=== PATIENT | female | born 1955 | race Caucasian/White ===

== ENCOUNTER 2018-12-05 13:21 | Emergency (ER) | payer MEDICAID, OTHER ==
[~2018-12-05] VITALS: Ht 162.6 cm; Wt 90.7 kg
[~2018-12-05 13:21] MED LIST: ACET-2605 PO; ALBU18HF2 IH; DOCU100C36 PO; FAMO20TA8 PO; GABA-534 PO; HYDR-4354 PO; LORA10TA7 PO; MOME13HF2 IH; MONT10TA22 PO; NAPR-1009 PO; PROZAC PO; SEROQUEL PO
--- NOTE | 2018-12-05 13:30 | NUR ---
ROSY 87 FROM HOME C/O SOB x 3 DAYS, ALBUTEROL GIVEN IN FIELD W ELEUTERIO BRAVO FROM [facility] THIS MORNING. TO ER BED 3, HOOKED TO MONITOR, CHANGED TO GOWN, AWAITING MD BLAIR
[2018-12-05 13:59] LABS: BASOPHILS % (AUTO) 0.5 % (0.0-2.0); EOSINOPHILS % (AUTO) 0.1 % (0.0-6.0); HEMATOCRIT 41 % (33-45); HEMOGLOBIN 12.9 g/dL (11.5-14.8); LYMPHOCYTES # (AUTO) 1.9 /CMM (0.8-4.8); LYMPHOCYTES % (AUTO) 25.6 % (20.0-44.0); MEAN CORPUSCULAR HGB CONC 31 g/dl (31.0-36.0); MEAN CORPUSCULAR VOLUME 68 fL (82-100); MONOCYTES # (AUTO) 0.7 /CMM (0.1-1.30); MONOCYTES % (AUTO) 9.6 % (2.0-12.0); NEUTROPHILS # (AUTO) 4.7 /CMM (1.8-8.9); NEUTROPHILS % (AUTO) 64.2 % (43.0-81.0); PLATELET COUNT (AUTO) 159 /CMM (150-450); RED BLOOD CELL COUNT(AUTO) 6.03 MIL/uL (4.0-5.2); WHITE BLOOD COUNT (AUTO) 7.3 K/uL (4.3-11.0)
[2018-12-05] MEDS ORDERED: IPRATROPIUM NEB FS 0.5 MG/2.5 ML AMPUL.NEB NEB ONE (14:00)
[2018-12-05] MEDS ORDERED: methylPREDNISolone SOD SUCC 125 MG/2ML VIAL IV ONE (14:00)
[2018-12-05] MEDS ORDERED: ALBUTEROL FS 2.5 MG/3 ML VIAL.NEB NEB ONE (14:00)
--- NOTE | 2018-12-05 14:00 | NUR ---
PT VERBALIZED THAT SHE PLANS ANUPAMA KILL HERSELF BY STICKING KNIFE THROUGH HER THROAT. MADE MD AWARE
[2018-12-05] MEDS ORDERED: methylPREDNISolone SOD SUCC 125 MG/2ML VIAL ONE (14:02)
[2018-12-05 14:09] LABS: CALCIUM, SERUM 9.1 mg/dL (8.5-10.1); CARBON DIOXIDE 30 mmol/L (21-32); CHLORIDE 102 mmol/L (98-107); CREATININE 0.7 mg/dL (0.6-1.3); GLUCOSE 143 mg/dL (74-106); SODIUM SERUM 140 mmol/L (136-145); UREA NITROGEN, BLOOD 9 mg/dL (7-18)
[2018-12-05] MEDS ORDERED: HYDR25TA4 PO (14:15)
[2018-12-05] MEDS ORDERED: LOSA100T31 PO (14:15)
[2018-12-05] MEDS ORDERED: CLON0.2T PO (14:15)
[2018-12-05] MEDS ORDERED: METF-442 PO (14:15)
[2018-12-05] MEDS ORDERED: NITR100C15 PO (14:15)
[2018-12-05] MEDS ORDERED: FLUO-120 PO (14:15)
[2018-12-05] MEDS ORDERED: BUPR-51 PO (14:15)
[2018-12-05] MEDS ORDERED: CLON2TAB11 PO (14:15)
[2018-12-05 14:17] LABS: POTASSIUM 2.8 mmol/L (3.5-5.1)
[2018-12-05 14:22] LABS: ALANINE AMINOTRANSFERASE 27 U/L (12-78); ALBUMIN 3.4 g/dL (3.4-5.0); ALKALINE PHOSPHATASE 65 U/L (46-116); ASPARTATE AMINOTRANSFERASE 26 U/L (15-37); B-TYPE NATRIURETIC PEPTIDE 730 PG/ML (0-125); BILIRUBIN,DIRECT 0.4 mg/dL (0.0-0.2); BILIRUBIN,TOTAL 0.9 mg/dL (0.2-1.0); TOTAL PROTEIN, SERUM 6.8 g/dL (6.4-8.2)
[2018-12-05] MEDS ORDERED: ALBUTEROL FS 2.5 MG/3 ML VIAL.NEB ONE (14:26)
[2018-12-05] MEDS ORDERED: IPRATROPIUM NEB FS 0.5 MG/2.5 ML AMPUL.NEB ONE (14:26)
[2018-12-05] MEDS ORDERED: POTASSIUM CHLORIDE 20 MEQ TAB.PRT.SR PO ONE (14:30)
[2018-12-05 15:05] LABS: NEUTROPHILS % (MANUAL) 63 (42-76)
[2018-12-05 15:06] LABS: LYMPHOCYTES % (MANUAL) 26 % (16-48); MONOCYTES % (MANUAL) 11 % (0-11.0)
[2018-12-05 15:55] LABS: APPEARANCE,URINE Clear (CLEAR); BILIRUBIN,URINE Negative (NEGATIVE); BLOOD, URINE Negative Ery/uL (NEGATIVE); COLOR,URINE Yellow (YELLOW); KETONES,URINE 40 (NEGATIVE); LEUKOCYTE ESTERASE ,URINE Negative (NEGATIVE); NITRITE, URINE Positive (NEGATIVE); PROTEIN,URINE Negative (NEGATIVE); UGLUCOSE Negative (NEGATIVE); UROBILINOGEN,URINE 0.2 EU/dL (0.2)
[2018-12-05 16:04] LABS: RBC,URINE NONE SEEN /HPF (0-2)
[2018-12-05 16:05] LABS: BACTERIA,URINE 1+ /HPF (None Seen); SQUAMOUS EPITHELIAL CELL,UR Few /HPF (None Seen)
--- NOTE | 2018-12-05 16:29 | NUR ---
PT IN BED COMFORTABLY ASLEEP. HOOKED TO MONITOR, NO C/O PAIN. PROVIDED W WARM BLANKETS. WILL CONTINUE TO MONITOR.
--- NOTE | 2018-12-05 17:31 | NUR ---
SALES SERVICE SUPERVISORLIVE, CALLED FOR A PSYCH EVAL Addendum: 12/05/18 at 1731 by SARAVANAN LEFT A MESSAGE
--- NOTE | 2018-12-05 18:04 | NUR ---
LIVE CALLED AND IS ON HER WAY
--- NOTE | 2018-12-05 19:42 | NUR ---
PT TO BED 13, SITTER AT BEDSIDE
--- NOTE | 2018-12-05 19:44 | NUR ---
EMT AT BEDSIDE INTIL NURSING ENVIRONMENTAL SPECIALIST SENDS SITTER.
--- NOTE | 2018-12-05 19:48 | NUR ---
AWAITING PLACEMENT AT [facility].
--- NOTE | 2018-12-05 19:52 | NUR ---
REPORT GIVEN TO GARCIA BREAUX FOR STEVEN
--- NOTE | 2018-12-05 22:01 | NUR ---
SPOKE WITH EUGENIA AT [facility], STILL AWAITING PLACEMENT.
--- NOTE | 2018-12-06 00:12 | NUR ---
PATIENT TBA [facility] ACCEPTED BY DR. BHAKTA RN TO RN REPORT [phone]
--- NOTE | 2018-12-06 00:46 | NUR ---
MARTIN PICKUP TIME [id number] TRIP#[id number]
--- NOTE | 2018-12-06 00:58 | NUR ---
IVORY CATHERINE ROOM#625-I
--- NOTE | 2018-12-06 00:58 | NUR ---
PER PENNY NURSE FROM [facility], THEY CAN'T ACCEPT PT UNTIL REPEAT K IS DONE, DR. JURADO AWARE, NEW ORDERS FOR REPEAT K DONE.
--- NOTE | 2018-12-06 01:24 | NUR ---
CALLED FOR REPORT, NX IS BUSY AT THIS TIME; WILL CALL BACK
--- NOTE | 2018-12-06 01:36 | NUR ---
REPORT GIVEN TO PENNY CURTIS [facility]
[2018-12-06 02:57] VITALS: BP 141/82
--- NOTE | 2018-12-06 03:09 | NUR ---
GAVE REPORT TO NAGA FROM [place] [id number] FOR TRANSPORTATION STEVEN
== END 2018-12-06 03:14 ==
LOC: ER 13:26
DX: G89.4 Chronic pain syndrome (principal); J44.9 Chronic obstructive pulmonary disease, unspecified; E66.01 Morbid (severe) obesity due to excess calories; R45.851 Suicidal ideations; R10.84 Generalized abdominal pain; E87.6 Hypokalemia; I10 Essential (primary) hypertension; I51.7 Cardiomegaly; E11.9 Type 2 diabetes mellitus without complications; F32.9 Major depressive disorder, single episode, unspecified; F20.9 Schizophrenia, unspecified; F17.200 Nicotine dependence, unspecified, uncomplicated
CPT/HCPCS: 36415 ×2; 71045; 74176; 80048; 80076; 80305; 80307; 81001; 83880; 84132; 84484; 85025; 87086; 93005; 94640 ×2; 96374; 99285; A4606; J2930; 81000-TC; G0480

== ENCOUNTER 2018-12-24 19:51 | Emergency (ER) | payer MEDICAID ==
[~2018-12-24] VITALS: Ht 162.6 cm; Wt 107.5 kg
[~2018-12-24 19:51] MED LIST changes: +BUPR-51 PO; +CLON0.2T PO; +CLON2TAB11 PO; -DOCU100C36 PO; -FAMO20TA8 PO; +FLUO-120 PO; -HYDR-4354 PO; +HYDR25TA4 PO; +LOSA100T31 PO; +METF-442 PO; -MOME13HF2 IH; -NAPR-1009 PO; +NITR100C15 PO; -PROZAC PO; -SEROQUEL PO
--- NOTE | 2018-12-24 20:05 | NUR ---
PT ROSY FROM HOME FOR C/C SOB, COUGH X 2 DAYS, O2 SAT 93% ON RA, GIVEN ALBUTEROL 5MG X2 HHN, BG 172 IN FIELD;C/O HEADACHE, ABD PAIN. PT AOX4. PRODUCTIVE COUGH NOTED. PT ON MONITOR IN BED 4. WILL CONTINUE TO MONITOR.
--- NOTE | 2018-12-24 20:29 | NUR ---
Deven woodson in [facility] - 12/24/18 at 2045 by DENIS AT BEDSIDE
[2018-12-24] MEDS ORDERED: ALBUTEROL FS 2.5 MG/3 ML VIAL.NEB NEB ONE (21:30)
[2018-12-24] MEDS ORDERED: IPRATROPIUM NEB FS 0.5 MG/2.5 ML AMPUL.NEB NEB ONE (21:30)
[2018-12-24] MEDS ORDERED: Magnesium 1GM/D5W 100ML PREMIX 200 ML IV ONE ×2 (21:31→21:47)
--- NOTE | 2018-12-24 21:31 | NUR ---
ADDENDUM: Intravenous End Time Documentation: Magnesium/ D5W : start time: 2130 PM ; end time: 0 PM : IV site: LAC # 20Port # 1
--- NOTE | 2018-12-24 21:36 | NUR ---
RADIOLOGY AT BEDSIDE FOR XRAY
[2018-12-24] MEDS ORDERED: IPRATROPIUM NEB FS 0.5 MG/2.5 ML AMPUL.NEB ONE (21:38)
[2018-12-24] MEDS ORDERED: ALBUTEROL FS 2.5 MG/3 ML VIAL.NEB ONE ×2 (21:38→21:48)
[2018-12-24] MEDS ORDERED: methylPREDNISolone SOD SUCC 125 MG/2ML VIAL ONE (21:46)
[2018-12-24] MEDS ORDERED: methylPREDNISolone SOD SUCC 125 MG/2ML VIAL IV ONE (22:00)
[2018-12-24] MEDS ORDERED: ALBUTEROL FS 2.5 MG/3 ML VIAL.NEB CONTNEB ONE (22:00)
[2018-12-24 22:44] LABS: BASOPHILS % (AUTO) 0.3 % (0.0-2.0); EOSINOPHILS % (AUTO) 0.3 % (0.0-6.0); HEMATOCRIT 40 % (33-45); HEMOGLOBIN 12.6 g/dL (11.5-14.8); LYMPHOCYTES # (AUTO) 4.5 /CMM (0.8-4.8); MEAN CORPUSCULAR HGB CONC 31 g/dl (31.0-36.0); MEAN CORPUSCULAR VOLUME 68 fL (82-100); MONOCYTES # (AUTO) 1.3 /CMM (0.1-1.30); MONOCYTES % (AUTO) 10.6 % (2.0-12.0); NEUTROPHILS # (AUTO) 6.6 /CMM (1.8-8.9); NEUTROPHILS % (AUTO) 52.8 % (43.0-81.0); PLATELET COUNT (AUTO) 239 /CMM (150-450); RED BLOOD CELL COUNT(AUTO) 5.98 MIL/uL (4.0-5.2); WHITE BLOOD COUNT (AUTO) 12.4 K/uL (4.3-11.0)
[2018-12-24 22:51] LABS: CALCIUM, SERUM 9.2 mg/dL (8.5-10.1); CREATININE 1.1 mg/dL (0.6-1.3)
[2018-12-24 23:00] LABS: ALBUMIN 3.4 g/dL (3.4-5.0); BILIRUBIN,TOTAL 0.3 mg/dL (0.2-1.0)
[2018-12-24 23:01] LABS: POTASSIUM 2.8 mmol/L (3.5-5.1)
[2018-12-24] MEDS ORDERED: IV NS 0.9% 1,000 ML BAG IV ONE (23:30)
[2018-12-24] MEDS ORDERED: POTASSIUM CHLORIDE 20 MEQ TAB.PRT.SR PO ONE ×2 (23:30→23:49)
[2018-12-24 23:38] LABS: LYMPHOCYTES % (MANUAL) 26 % (16-48); MONOCYTES % (MANUAL) 11 % (0-11.0); NEUTROPHILS % (MANUAL) 63 (42-76)
[2018-12-24] MEDS ORDERED: ONDANSETRON 4 MG TAB.RAPDIS ONE (23:49)
[2018-12-24] MEDS ORDERED: MORPHINE SULFATE INJ 4 MG/ML DISP.SYRIN ONE (23:49)
[2018-12-25] MEDS ORDERED: MORPHINE SULFATE INJ 10 MG/ML DISP.SYRIN IV ONE
[2018-12-25] MEDS ORDERED: ONDANSETRON 4 MG TAB.RAPDIS SL ONE
[2018-12-25 00:06] LABS: APPEARANCE,URINE Cloudy (CLEAR); BILIRUBIN,URINE SMALL (NEGATIVE); BLOOD, URINE Negative Ery/uL (NEGATIVE); COLOR,URINE Dark (YELLOW); KETONES,URINE 15 (NEGATIVE); LEUKOCYTE ESTERASE ,URINE Trace (NEGATIVE); NITRITE, URINE Negative (NEGATIVE); PH,URINE 5.5 (5.0-8.0); PROTEIN,URINE 100 mg/dl (NEGATIVE); UGLUCOSE Negative (NEGATIVE)
[2018-12-25 00:27] LABS: RBC,URINE 0-2 /HPF (0-2)
[2018-12-25 00:28] LABS: BACTERIA,URINE Few /HPF (None Seen); SQUAMOUS EPITHELIAL CELL,UR Few /HPF (None Seen)
[2018-12-25 00:48] VITALS: BP 111/75
[2018-12-25] MEDS ORDERED: IV NS 0.9% 250 ML IV ONE (01:48)
[2018-12-25] MEDS ORDERED: CT SWABBABLE VALVE TRANS SET 1 EA INFUS.SET MC ONE (01:48)
[2018-12-25] MEDS ORDERED: IOHEXOL-350 100 ML VIAL IV ONE (01:48)
--- NOTE | 2018-12-25 01:48 | NUR ---
PT TAKEN TO RADIOLOGY VIA DEANDRA
[2018-12-25] MEDS ORDERED: HYDROMORPHONE INJ 0.5 MG/0.5 ML SYRINGE IV ONE (02:00)
[2018-12-25] MEDS ORDERED: HYDROMORPHONE 1 MG/1 ML DISP.SYRIN ONE (02:02)
--- NOTE | 2018-12-25 03:34 | NUR ---
IV removed. Catheter intact and site benign. Pressure and 4x4 applied to site. No bleeding noted.Patient discharged to home in stable condition. Written and verbal after care instructions given. Patient verbalizes understanding of instruction.
== END 2018-12-25 03:39 | disposition home or self-care (01) ==
LOC: ER 19:51
DX: J44.9 Chronic obstructive pulmonary disease, unspecified (principal); N39.0 Urinary tract infection, site not specified; R19.09 Other intra-abdominal and pelvic swelling, mass and lump; R11.10 Vomiting, unspecified; E11.9 Type 2 diabetes mellitus without complications; I10 Essential (primary) hypertension; F32.9 Major depressive disorder, single episode, unspecified; F41.9 Anxiety disorder, unspecified; F20.9 Schizophrenia, unspecified; I51.7 Cardiomegaly; F17.200 Nicotine dependence, unspecified, uncomplicated
CPT/HCPCS: 36415; 71045; 71275; 74176; 80053; 81001; 84484; 85025; 85730; 87077; 87086; 87186 ×2; 87804 ×2; 93005 ×2; 94644; 96361; 96365; 96366; 96375; 99285; A4606; J1170; J2270; J2930; J3475; J7030; J7050; Q0162; Q9967; 81000-TC; 87400

== ENCOUNTER 2019-06-12 14:34 | Emergency (ER) | payer MEDICARE, OTHER ==
[2019-06-12] MEDS ORDERED: ACETAMINOPHEN W/ CODEINE#3 1 EA TABLET PO ONE (17:00)
== END 2019-06-12 17:01 | disposition home or self-care (01) ==
DX: L03.116 Cellulitis of left lower limb (principal); F17.210 Nicotine dependence, cigarettes, uncomplicated; I10 Essential (primary) hypertension; E11.9 Type 2 diabetes mellitus without complications; J44.9 Chronic obstructive pulmonary disease, unspecified; F32.9 Major depressive disorder, single episode, unspecified; F41.9 Anxiety disorder, unspecified; F20.9 Schizophrenia, unspecified; Z85.42 Personal history of malignant neoplasm of other parts of uterus; Z90.49 Acquired absence of other specified parts of digestive tract; Z90.710 Acquired absence of both cervix and uterus

== ENCOUNTER 2019-06-22 13:56 | Inpatient (IN) | payer OTHER ==
[~2019-06-22] VITALS: Ht 162.6 cm; Wt 130.2 kg
--- NOTE | 2019-06-22 14:00 | NUR ---
[place] RA 860 FROM [facility], "BOTH LEGS SWELLING AND PAIN x 5DAYS" . TO ER BED 10, HOOKED TO MONITOR, CHANGED TO GOWN, PROVIDED W WARM BLANKET, PATIENT'S RA O2 SATURATION AT 89%, PLACED ON OXYGEN VIA NC AT 4LPM, O2 SATURATION AFTER AT 93%. AWAITING MD BLAIR.
--- NOTE | 2019-06-22 14:28 | NUR ---
DR BENTON AT BEDSIDE
[2019-06-22] MEDS ORDERED: VANCOMYCIN 1 GM in IV D5W 250 ML IV ONE (14:30)
--- NOTE | 2019-06-22 14:55 | NUR ---
US TECH AT BEDSIDE
[2019-06-22 14:59] LABS: BASOPHILS % (AUTO) 0.8 % (0.0-2.0); EOSINOPHILS % (AUTO) 2.8 % (0.0-6.0); HEMATOCRIT 35 % (33-45); HEMOGLOBIN 10.8 g/dL (11.5-14.8); LYMPHOCYTES # (AUTO) 1.7 /CMM (0.8-4.8); LYMPHOCYTES % (AUTO) 32.2 % (20.0-44.0); MEAN CORPUSCULAR HGB CONC 31 g/dl (31.0-36.0); MEAN CORPUSCULAR VOLUME 66 fL (82-100); MONOCYTES # (AUTO) 0.5 /CMM (0.1-1.30); MONOCYTES % (AUTO) 10.3 % (2.0-12.0); NEUTROPHILS # (AUTO) 2.9 /CMM (1.8-8.9); NEUTROPHILS % (AUTO) 53.9 % (43.0-81.0); PLATELET COUNT (AUTO) 126 /CMM (150-450); RED BLOOD CELL COUNT(AUTO) 5.32 MIL/uL (4.0-5.2); WHITE BLOOD COUNT (AUTO) 5.3 K/uL (4.3-11.0)
[2019-06-22] MEDS ORDERED: ONDANSETRON HCL/PF - ER 4 MG/2 ML VIAL IV ONE (15:00)
[2019-06-22] MEDS ORDERED: MORPHINE SULFATE INJ 2 MG/ML DISP.SYRIN IV ONE (15:00)
[2019-06-22 15:05] LABS: CALCIUM, SERUM 8.2 mg/dL (8.5-10.1); CREATININE 0.8 mg/dL (0.6-1.3)
[2019-06-22 15:18] LABS: ALBUMIN 2.8 g/dL (3.4-5.0); BILIRUBIN,DIRECT 0.2 mg/dL (0.0-0.2); BILIRUBIN,TOTAL 0.3 mg/dL (0.2-1.0); TOTAL PROTEIN, SERUM 5.9 g/dL (6.4-8.2)
[2019-06-22] MEDS ORDERED: VANCOMYCIN 1 GM VIAL ONE (15:22)
[2019-06-22] MEDS ORDERED: MORPHINE SULFATE INJ 4 MG/ML DISP.SYRIN ONE (15:28)
[2019-06-22] MEDS ORDERED: ONDANSETRON HCL/PF 4 MG/2 ML VIAL ONE (15:28)
[2019-06-22] MEDS ORDERED: CARI350T PO (15:31)
[2019-06-22] MEDS ORDERED: MELA5TAB PO (15:31)
--- NOTE | 2019-06-22 16:30 | NUR ---
Called HCP at [phone] to notify on admission. Rep wasn't able to locate the patient.
--- NOTE | 2019-06-22 16:38 | NUR ---
Called Cynthia MARES at [facility] who also weren't able to locate the patient. Faxed Facesheet to [phone] @ 1641, Cynthia confirmed that she received it and will take it to the eligibility team to verify eligibility. She will let me know shortly.
--- NOTE | 2019-06-22 17:00 | NUR ---
got bed 311 juan jose is the nurse.
--- NOTE | 2019-06-22 17:08 | NUR ---
Spoke with Cynthia, she is unable to verify eligibility at this time. Will admit the patient and she will notify the MD in AM.
--- NOTE | 2019-06-22 17:09 | NUR ---
@ 1630 Called HCP at [phone] to notify on admission. Rep wasn't able to locate the patient. @ 1632 Called Cynthia MARES at [facility] who also weren't able to locate the patient. Faxed Facesheet to [phone] @ 9951, Cynthia confirmed that she received it and will take it to the eligibility team to verify eligibility. She will let me know shortly. @ Spoke with Cynthia, she is unable to verify eligibility at this time. Will admit the patient and she will notify the MD in AM. ER is aware that it is OK to Admit the patient at this time. Will follow up with HCP in AM
--- NOTE | 2019-06-22 17:34 | NUR ---
REPORT GIVEN TO SEBASTIAN OF MS UNIT
--- NOTE | 2019-06-22 18:26 | NUR ---
MS DIESEL SERVICE JOURNEYMAN NOTES Received Patient awake and resting in bed. A/O x 4. VS stable with no acute distress. Breathing even and unlabored on 4LPM via NC with SPO2 at 92%. VS stable with no acute distress. Denies pain at this time. 22g PIV on LEFT HAND clean, dry, intact and flushing well. Safety precautions in place. Bed locked and set to lowest position with side rails x 2 up. All needs rendered at this time. Will continue to monitor.
[2019-06-22] MEDS ORDERED: TEMA30CA PO (18:29)
[2019-06-22] MEDS ORDERED: BENZ2AMP3 PO (18:29)
[2019-06-22] MEDS ORDERED: DICL50TA7 PO (18:29)
[2019-06-22] MEDS ORDERED: QUET300T2 PO (18:29)
[2019-06-22] MEDS ORDERED: ROSU5TAB PO (18:29)
[2019-06-22] MEDS ORDERED: ALBUTEROL FS 2.5 MG/3 ML VIAL.NEB NEB PRN ×2 (19:00→19:38)
[2019-06-22] MEDS ORDERED: clonazePAM 2 MG TABLET PO PRN (19:00)
[2019-06-22] MEDS ORDERED: ONDANSETRON HCL/PF 4 MG/2 ML VIAL IVP PRN (19:00)
[2019-06-22] MEDS ORDERED: MAGNESIUM HYDROXIDE 30 ML UDC PO PRN (19:00)
[2019-06-22] MEDS ORDERED: DEXTROSE 50%-WATER 50 ML DISP.SYRIN IV PRN (19:00)
[2019-06-22] MEDS ORDERED: TEMAZEPAM 15 MG CAPSULE PO PRN (19:00)
[2019-06-22] MEDS ORDERED: HYDROCODONE/APAP 10/325MG 1 EA TABLET PO PRN (19:00)
[2019-06-22] MEDS ORDERED: ACETAMINOPHEN 325 MG TABLET PO PRN (19:00)
[2019-06-22] MEDS ORDERED: MAG HYDROX/AL HYDROX/SIMETH 30 ML UDC PO PRN (19:00)
[2019-06-22] MEDS ORDERED: FEE PK DOSING 1 MIN EA MC ONE (19:34)
--- NOTE | 2019-06-22 19:35 | NUR ---
RN OPENING NOTES RECEIVED PATIENT IN BED RESTING COMFORTABLY, ASLEEP, EASILY AROUSBLE TO VOICE. A/O X 4. NO SIGNS OF RESPIRATORY DISTRESS. DENIES SOB. ON 4LPM O2 VIA NC SATURATION AT 93%. DENIES PAIN AT THIS TIME. 22 G PIV ON LEFT HAND, INTACT AND FLUSHING WELL. SAFETY PRECAUTIONS IMPLEMENTED; CALL LIGHT WITHIN REACH, BED LOWEST POSITION, BED LOCKED, SIDE RAILS UP X2. WILL CONTINUE TO MONITOR PATIENT.
--- NOTE | 2019-06-22 19:44 | NUR ---
MS RN CLOSING NOTES Patient resting and asleep in bed. A/O x 4. VS stable with no acute distress. Breathing even and unlabored on 4LPM via NC with SPO2 at 93%. Denies pain at this time. 22g PIV on LEFT HAND clean, dry, intact and flushing well. Safety precautions in place. Bed locked and set to lowest position with side rails x 2 up. All needs rendered at this time. Will endorse plan of care to oncoming shift.
[2019-06-22 20:00] VITALS: BP 137/82
[2019-06-22] MEDS ORDERED: clonazePAM 1 MG TABLET PO PRN (20:00)
[2019-06-22] MEDS ORDERED: clonazePAM 1 MG TABLET PO SCH (20:00)
--- NOTE | 2019-06-22 20:17 | NUR ---
RN NOTES PATIENT ABLE TO STAND NEAR BED SIDE FOR A MINUTE. ABLE TO ZERO BED. PATIENT WEIGHT 285 POUNDS. CALLED PHARMACY ABOUT WEIGHT.
[2019-06-22] MEDS: ATORVASTATIN 10 MG TABLET PO SCH (21:58)
[2019-06-22] MEDS: BLOOD SUGAR DIAGNOSTIC 1 EACH STRIP IN SCH (21:58)
[2019-06-22] MEDS: QUETIAPINE FUMARATE 100 MG TABLET PO SCH (21:59)
[2019-06-22] MEDS: HYDROCODONE/APAP 5/325MG 1 EACH TABLET PO PRN (22:05)
--- NOTE | 2019-06-22 23:00 | NUR ---
RN NOTES PATIENT ONLY ABLE TO TOLERATE BODY ASSESSMENT ANTERIORLY/FRONT. UNABLE TO ASSESS BACK DUE TO PATIENT EXPERIENCING DISCOMFORT WHEN TRYING TO TURN. PATIENT REFUSES ASSESSMENT OF THE BACK OR POSTERIOR SIDE OF THE FULL BODY.
[2019-06-23] VITALS (12 sets, daily range): BP systolic 107–154; BP diastolic 55–84
[2019-06-23] MEDS: VANCOMYCIN 1.25 GM in IV D5W 500 ML IV SCH ×2 (02:56→16:24)
--- NOTE | 2019-06-23 07:00 | NUR ---
RN CLOSING NOTES PATIENT CURRENTLY ASLEEP, RESTING IN BED, EASILY AROUSABLE. A/O X 4 WHEN AWAKE. VITAL SIGNS STABLE. PATIENT CURRENTLY ON 2LPM OXYGEN VIA NC WITH SPO2 AT 93-95%. NO SIGNS OF RESPIRATORY DISTRESS. NO SHORTNESS OF BREATH NOTED. NO COMPLAINTS OF PAIN AT THIS TIME. IV SITE: 22G LEFT HAND INTACT, PATENT, FLUSHING WELL. ALL NEEDS MET AT THIS TIME. SAFETY PRECAUTIONS IMPLEMENTED; CALL LIGHT WITHIN REACH, BED LOWEST POSITION, BED LOCKED, SIDE RAILS UP X2. WILL ENDORSE CARE TO DAY NURSE FOR CONTINUITY OF CARE.
[2019-06-23 07:23] LABS: EOSINOPHILS % (AUTO) 4.5 % (0.0-6.0); HEMATOCRIT 36 % (33-45); HEMOGLOBIN 10.9 g/dL (11.5-14.8); LYMPHOCYTES # (AUTO) 1.6 /CMM (0.8-4.8); LYMPHOCYTES % (AUTO) 39.6 % (20.0-44.0); MEAN CORPUSCULAR HGB CONC 30 g/dl (31.0-36.0); MEAN CORPUSCULAR VOLUME 67 fL (82-100); MONOCYTES # (AUTO) 0.5 /CMM (0.1-1.30); MONOCYTES % (AUTO) 12.8 % (2.0-12.0); NEUTROPHILS # (AUTO) 1.7 /CMM (1.8-8.9); NEUTROPHILS % (AUTO) 42.1 % (43.0-81.0); PLATELET COUNT (AUTO) 127 /CMM (150-450); RED BLOOD CELL COUNT(AUTO) 5.39 MIL/uL (4.0-5.2); WHITE BLOOD COUNT (AUTO) 4.1 K/uL (4.3-11.0)
--- NOTE | 2019-06-23 07:30 | NUR ---
RN MS NOTES PT IN BED, ASLEEP, RESPIRATIONS NORMAL, NO SIGN OF PAIN OR DISTRESS, CALL LIGHT WITHIN REACH, EASY TO AROUSE, ALERT AND ORIENTED, KEPT WARM AND COMFORTABLE.
[2019-06-23 07:54] LABS: CALCIUM, SERUM 8.4 mg/dL (8.5-10.1); CREATININE 0.6 mg/dL (0.6-1.3); MAGNESIUM 1.7 mg/dL (1.8-2.4); PHOSPHORUS 4.8 mg/dL (2.5-4.9); POTASSIUM 4.3 mmol/L (3.5-5.1)
[2019-06-23] MEDS ORDERED: ALBUTEROL FS 2.5 MG/0.5 ML VIAL.NEB NEB PRN (08:00)
[2019-06-23] MEDS ORDERED: MAGNESIUM OXIDE 400 MG TABLET PO ONE (08:00)
[2019-06-23] MEDS ORDERED: IPRATROPIUM NEB FS 0.5 MG/2.5 ML AMPUL.NEB NEB PRN (08:00)
[2019-06-23] MEDS: GABAPENTIN 300 MG CAPSULE PO SCH ×2 (09:03→16:50)
[2019-06-23] MEDS: BLOOD SUGAR DIAGNOSTIC 1 EACH STRIP IN SCH ×4 (09:03→21:46)
[2019-06-23] MEDS: BENZTROPINE MESYLATE (1 MG) 1 MG TABLET PO SCH ×2 (09:03→16:50)
[2019-06-23] MEDS: DICLOFENAC SODIUM 25 MG TABLET.DR PO SCH ×2 (09:07→16:50)
--- NOTE | 2019-06-23 09:30 | NUR ---
RN MS NOTES PT SEEN AND EXAMINED BY DR. ESCALANTE, PLAN OF CARE DISCUSSED WITH PT, VERBALIZED UNDERSTANDING.
[2019-06-23 09:54] LABS: EOSINOPHILS % (MANUAL) 3 % (0-4); LYMPHOCYTES % (MANUAL) 45 % (16-48); MONOCYTES % (MANUAL) 10 % (0-11.0); NEUTROPHILS % (MANUAL) 42 (42-76)
[2019-06-23] MEDS: FUROSEMIDE 40 MG/4 ML VIAL IV SCH (13:13)
[2019-06-23 13:45] LABS: ABG BASE EXCESS 9.9 mmol/L; ABG OXYGEN SATURATION 90.2 % (92.0-98.5); ABG PCO2 101.8 mmHg (35.0-45.0); ABG PH 7.221 (7.350-7.450); ABG PO2 65.5 mmHg (75.0-100.0); AaDO2 28.8 mmHg; COHb 1.8 % (0.5-1.5); MetHb 0.6 % (0.0-1.5); SITE, ABG Right Radial; VENT MODE, BG NASAL CANNULA
--- NOTE | 2019-06-23 14:52 | NUR ---
RN MS NOTES PT WITH ABNORMAL ABG RESULTS, RECEIVED ORDER TO TRANSFER PT TO ICU FOR BIPAP, PT INFORMED, VERBALIZED UNDERSTANDING, TRANSFERED PT TO ICU ROOM 259 WITH ALL BELONGINGS, PT AWAKE, ALERT AND ORIENTED, NOT IN DISTRESS, REPORT GIVEN TO HIGH SCHOOL BUSINESS TEACHER AFSA FOR CONTINUITY OF CARE.
[2019-06-23] MEDS: HYDROCODONE/APAP 5/325MG 1 EACH TABLET PO PRN (14:53)
--- NOTE | 2019-06-23 15:00 | NUR ---
QUALITY PROCESS AUDITORCLASSIFIED AD CLERK NOTES PT RECEIVED FROM [facility] DUE TO BIPAP NEED A RESULT OF HYPERCAPNIC RESPIRATORY FAILURE. RT AT BEDSIDE. PT A/O X3. VSS. NO ACUTE SIGNS OF DISTRESS NOTED. BREATHING IS EVEN AND UNLABORED. DR RAND MADE AWARE OF TRANSFER. TELEPHONE ORDER OBTAINED TO REPEAT ABG 2HRS POST BIPAP INITIATION. BELONGINGS VERIFIED. PT ORIENTED TO ROOM AND USE OF CALL LIGHT. BED IN LOW LOCKED POSITION, SIDE RAILS UP X2. WILL CONTINUE TO MONITOR
[2019-06-23 17:02] LABS: ABG BASE EXCESS 7.9 mmol/L; ABG PCO2 85.4 mmHg (35.0-45.0); ABG PH 7.261 (7.350-7.450); ABG PO2 66.2 mmHg (75.0-100.0); AaDO2 84.1 mmHg; COHb 1.7 % (0.5-1.5); MetHb 0.6 % (0.0-1.5); O2Hb 88.9 % (94.0-97.0); SITE, ABG Right Radial; VENT MODE, BG 18/5 R 12 35%
--- NOTE | 2019-06-23 17:15 | NUR ---
RESULTS OF [address] RAND. VENT CHANGES NOTED BY RT
--- NOTE | 2019-06-23 18:33 | NUR ---
ANNEALING FURNACE TENDER CLOSING NOTES PT REMAINS STABLE ON BIPAP. ALL NEEDS ANTICIPATED FOR AND MET. DUE MEDS GIVEN PT'S CONDITION WOULD PERMIT. PRN CARE RENDERED. WILL ENDORSE TO NIGHTSHIFT RN FOR STEVEN
--- NOTE | 2019-06-23 19:30 | NUR ---
Received patient lethargic but arousable.Oriented x 3.Follows simple commands.SR per tele monitoring.ON BIPAP 18/8,Rate 20,FIO2 35 %.SPO2 92%.No respiratory distress noted.VS stable.Denies pain or sob.RT aware to do ABG's.Care explained.Verbalized understanding. Safety precaution maintained.Call light at bedside.
[2019-06-23 19:40] LABS: ABG BASE EXCESS 8.9 mmol/L; ABG OXYGEN SATURATION 90.5 % (92.0-98.5); ABG PCO2 91.1 mmHg (35.0-45.0); ABG PH 7.249 (7.350-7.450); ABG PO2 64.8 mmHg (75.0-100.0); AaDO2 78.8 mmHg; COHb 1.8 % (0.5-1.5); MetHb 0.6 % (0.0-1.5); O2Hb 88.3 % (94.0-97.0); SITE, ABG Right Radial
--- NOTE | 2019-06-23 19:51 | NUR ---
ABG ORDER @ 19-- Addendum: 06/23/19 at 2041 by ADILENE PALMER RT PHYLLIS DONE @ 19:28. DUE TO ARTERIAL BLOOD GAS RESULT , BIPAP SETTINGS CHANGED TO 20 /5, RATE 26 PER MD'S ORDER. NAMITA CALDERON NOTIFIED.
--- NOTE | 2019-06-23 19:55 | NUR ---
Patient lethargic but arousable.ABG's done.Resulted pH-7.249,pCO2 -91.1,pO2- 64.8, HCO3-39 called to with orders received.Titrate O2 sat 88%-92%,Increase rate to 26,increase pressure 20/5.Do ABG's PRN and in AM.RT,Elizabeth notified.
--- NOTE | 2019-06-23 21:00 | NUR ---
Duncan catheter FR# 16 inserted observing aseptic technique.Draining clear yellow urine. Patient tolerated procedure well.
[2019-06-23] MEDS: QUETIAPINE FUMARATE 100 MG TABLET PO SCH (21:46)
[2019-06-23] MEDS: ATORVASTATIN 10 MG TABLET PO SCH (21:46)
[2019-06-24] VITALS (21 sets, daily range): BP systolic 127–164; BP diastolic 64–99
--- NOTE | 2019-06-24 | NUR ---
Patient resting vs stable.SR.Tolerating BIPAP.Encouraged to turn to sides Q 2 hrs.
[2019-06-24] MEDS: VANCOMYCIN 1.25 GM in IV D5W 500 ML IV SCH ×2 (03:00→14:13)
[2019-06-24] MEDS ORDERED: IV NS 0.9% 250 ML IV ONE (03:30)
--- NOTE | 2019-06-24 04:00 | NUR ---
Patient resting in no acute distress.Get confused and disoriented for brief period of time. Patient removed BIPAP.Reapplied and instructed not to removed it and educated its importance. Reoriented to place and time.Safety precaution maintained.
[2019-06-24 05:03] LABS: CALCIUM, SERUM 8.3 mg/dL (8.5-10.1); CREATININE 0.7 mg/dL (0.6-1.3); POTASSIUM 3.7 mmol/L (3.5-5.1)
--- NOTE | 2019-06-24 06:45 | NUR ---
Patient resting vs remains stable.Refused bed bath.Zachary from lab called CO2 42. Called to DIGESTER,Jigna Arriaza she said to wait for pulmonology to deal with it. Patient in no distress.All needs anticipated and met.Will endorse to day shift for STEVEN.
--- NOTE | 2019-06-24 07:10 | NUR ---
PAINTER DRUM INITIAL NOTES PT RECEIVED ON 3L VIA NC AND SATING WELL. PT REFUSING BIPAP AT THIS TIME. DR RAND MADE AWARE. NO SOB OR SIGNS OF ACUTE DISTRESS NOTED. BREATHING IS EVEN AND UNLABORED. SHE DENIES ANY PAIN. F/C NOTED TO BE C/D/I AND DRAINING TO GRAVITY. RIGHT UPPER ARM MIDLINE NOTED TO BE PATENT AND INTACT. NO REDNESS OR SIGNS OF INFILTRATION NOTED. BED IN LOW LOCKED POSITION, SIDE RAILS UP X2, CALL LIGHT WITHIN REACH. WILL CONTINUE TO MONITOR.
--- NOTE | 2019-06-24 07:49 | NUR ---
pt. is awake and alert, refused to place on bipap. Addendum: 06/24/19 at 0750 by GAMA YBARRA RT Amended: Links added.
[2019-06-24] MEDS: BLOOD SUGAR DIAGNOSTIC 1 EACH STRIP IN SCH ×4 (08:22→21:29)
[2019-06-24] MEDS: DICLOFENAC SODIUM 25 MG TABLET.DR PO SCH ×2 (08:38→17:24)
[2019-06-24] MEDS: BENZTROPINE MESYLATE (1 MG) 1 MG TABLET PO SCH ×2 (08:39→17:24)
[2019-06-24] MEDS: FUROSEMIDE 40 MG/4 ML VIAL IV SCH (08:39)
[2019-06-24] MEDS: GABAPENTIN 300 MG CAPSULE PO SCH ×2 (08:39→17:24)
[2019-06-24 09:14] LABS: ABG BASE EXCESS 10.2 mmol/L; ABG OXYGEN SATURATION 92.1 % (92.0-98.5); ABG PCO2 62.5 mmHg (35.0-45.0); ABG PH 7.392 (7.350-7.450); ABG PO2 58.2 mmHg (75.0-100.0); AaDO2 38.5 mmHg; COHb 1.9 % (0.5-1.5); MetHb 0.5 % (0.0-1.5); O2Hb 89.9 % (94.0-97.0); SITE, ABG Right Radial; VENT MODE, BG NASAL CANNULA
[2019-06-24] MEDS: HYDROCODONE/APAP 5/325MG 1 EACH TABLET PO PRN ×2 (14:14→20:07)
--- NOTE | 2019-06-24 18:35 | NUR ---
CANNON FIRE DIRECTION SPECIALISTBALANCING MACHINE OPERATOR NOTES PT TRANSFERRED TO TELE ROOM 111-1 VIA [facility]. ALL NEEDS MET DURING SHIFT AND ORDERS CARRIED OUT ACCORDINGLY. ALL DUE MEDS GIVEN. PRN CARE RENDERED. INVASIVE LINES REMAIN PATENT AND INTACT. ALL BELONGINGS ACCOUNTED FOR UPON TRANSFER WITH THE EXCEPTION OF PT'S DENTURES, EYEGLASSES, AND CELL PHONE WHICH WERE TAKEN BY PT'S EARLIER THIS AFTERNOON VSS UPON TRANSFER. REPORT GIVEN TO NAMITA ORTIZ FOR STEVEN
--- NOTE | 2019-06-24 18:40 | NUR ---
PT TRANSFERRED DOWN FROM ICU. PT DENIES BEING SOB. DOES REPORT PAIN BUT STATES SHE HAS JUST RECEIVED SOME PAIN MEDICATION IN ICU. PT STATES SHE IS NOT IN ANY NEED OF ANYTHING CURRENTLY. PT IS ON 2 L O2 VIA NC. WILL ENDORSE CONTINUATION OF CARE TO GRAPHIC DESIGN ASSISTANT RN.
--- NOTE | 2019-06-24 19:43 | NUR ---
MEDIA RELATIONS DIRECTOR NOTE: RECEIVED PT ON BED ALERT AND ORIENTED X3. ABLE TO MAKE NEEDS KNOWN. NO APPARENT DISTRESS NOTED. DENIES PAIN AND DISCOMFORT AT THIS TIME. ON ROOM AIR, NO SOB NOTED. IV ON LEFT HAND #22 AND RIGHT UPPER ARM MIDLINE INTACT AND PATENT, FLUSHING WELL. ON TELE MONITOR SINUS TACHY HR 113 BPM. KEPT CLEAN, DRY AND COMFORTABLE. CALL LIGHT PLACED WITHIN REACH. SAFETY AND FALL PRECAUTIONS OBSERVED AND MAINTAINED. WILL CONTINUE TO MONITOR PT
[2019-06-24] MEDS: ATORVASTATIN 10 MG TABLET PO SCH (21:29)
[2019-06-24] MEDS: QUETIAPINE FUMARATE 100 MG TABLET PO SCH (21:29)
[2019-06-24] MEDS: INSULIN REGULAR, HUMAN 100 UNIT/ML 3 ML VIAL SQ PRN (21:40)
[2019-06-25] VITALS: BP 142/85
--- NOTE | 2019-06-25 02:21 | NUR ---
COUNTER SUPERVISOR NOTE: PATIENT REFUSED NOCTURNAL BIPAP AND VERBALIZED "I DON'T NEED THAT, I'M BREATHING FINE". EXPLAINED RISKS AND BENEFITS BUT PT STILL REFUSED. CHARGE NURSE AWARE. WILL CONTINUE TO MONITOR PT.
[2019-06-25] MEDS: VANCOMYCIN 1.25 GM in IV D5W 500 ML IV SCH ×2 (02:24→15:00)
[2019-06-25 04:00] VITALS: BP 144/86
--- NOTE | 2019-06-25 06:40 | NUR ---
OLEOMARGARINE MAKER NOTE: NO CHANGES NOTED THROUGHOUT THE SHIFT. NO APPARENT DISTRESS NOTED. NO COMPLAINTS OF PAIN OR DISCOMFORT AT THIS TIME. ON 2LPM NASAL CANNULA, BREATHING EVEN AND UNLABORED WITH NORMAL RESPIRATIONS. SINUS RHYTHM ON TELE MONITOR HR 88BPM. IV ON LEFT HAND #22 AND RIGHT UPPER ARM MIDLINE INTACT AND PATENT, FLUSHING WELL. HEARD CATH INTACT, DRAINED 1400ML OF URINE OUTPUT. KEPT CLEAN, DRY AND COMFORTABLE. SAFETY AND FALL PRECAUTIONS OBSERVED AND MAINTAINED. WILL ENDORSE TO DAY SHIFT RN FOR CONTINUITY OF CARE.
[2019-06-25 08:00] VITALS: BP_SYST 120; BP_SYST 141; BP_DIAS 80; BP_DIAS 85
--- NOTE | 2019-06-25 08:00 | NUR ---
RN OPENING NOTES RECEIVED PATIENT AWAKE AND RESTING COMFORTABLY IN BED. SHE IS AO X4, VERBAL, NONAMBULATORY. SHE IS RECEIVING OXYGEN VIA NC AT 2L, TOLERATING WELL, AMAURI MIDLINE PATENT AND INTACT. SAFETY MEASURES HAVE BEEN IMPLEMENTED, CALL LIGHT WITHIN REACH, BED IN LOWEST AND LOCKED POSITION, CALL LIGHT WITHIN REACH, SIDE RAILS UP X2, WILL CONTINUE TO MONITOR FOR ANY CHANGES
[2019-06-25] MEDS: BLOOD SUGAR DIAGNOSTIC 1 EACH STRIP IN SCH ×2 (08:08→12:09)
[2019-06-25 08:09] LABS: CALCIUM, SERUM 8.4 mg/dL (8.5-10.1); CREATININE 0.7 mg/dL (0.6-1.3)
[2019-06-25] MEDS: INSULIN REGULAR, HUMAN 100 UNIT/ML 3 ML VIAL SQ PRN ×2 (08:11→12:13)
[2019-06-25] MEDS: FUROSEMIDE 40 MG/4 ML VIAL IV SCH (09:19)
[2019-06-25] MEDS: DICLOFENAC SODIUM 25 MG TABLET.DR PO SCH (09:19)
[2019-06-25] MEDS: BENZTROPINE MESYLATE (1 MG) 1 MG TABLET PO SCH (09:19)
[2019-06-25] MEDS: GABAPENTIN 300 MG CAPSULE PO SCH (09:19)
--- NOTE | 2019-06-25 10:40 | NUR ---
Social service consult requested by patient advocate Ann regarding IHSS application. Pt. is a 64 year old female who was admitted to [facility] for cellulitis. MARY met with pt. bedside. Pt. is alert and oriented x 4. Pt. is pleasant and cooperative with SW. Pt. is interested in applying for IHSS. MARY explained the IHSS process and informed pt. she will initiate the IHSS application. MARY contacted [facility] and spoke to Pt's IHSS application case ID number is [id number]. Addendum: 06/25/19 at 1413 by JESSICA HERNANDEZ MARY met with pt. bedside and informed her that MARY initiated an IHSS application for her and gave her the IHSS case ID number. Pt. also gave pt. the contact number to her insurance [employer] and informed her to call them so they can provide her with a PCP. Pt. was very appreciative.
--- NOTE | 2019-06-25 12:31 | NUR ---
RT NOTE PT FOUND ON NC @ 2L FLOW. NO DISTRESS NOTED. PT AWAKE AND ALERT. BIPAP AT BED SIDE. AMBU BAG AT BED SIDE. Addendum: 06/25/19 at 1232 by JUANITA DECKER RT Amended: Links added.
[2019-06-25] MEDS ORDERED: HYDROGEL DRESSING 90 GM TUBE TP SCH (13:00)
[2019-06-25] MEDS: HYDROCODONE/APAP 5/325MG 1 EACH TABLET PO PRN (13:18)
--- NOTE | 2019-06-25 13:30 | NUR ---
PATIENT DC DELAYED, AWAITING PICKUP ARRANGEMENT
--- NOTE | 2019-06-25 15:17 | NUR ---
1500 DOSE OF VANCOMYCIN NOT ADMINISTERED BECAUSE AGUSTINA METZ OF 20. PHARMACY TO ADJUST DOSAGE AND WILL ADMINISTER AT 1600
[2019-06-25 16:00] VITALS: BP 155/96
[2019-06-25] MEDS ORDERED: VANCOMYCIN 1 GM in IV D5W 250 ML IV SCH (17:00)
--- NOTE | 2019-06-25 17:00 | NUR ---
PATIENT HAS BEEN DISCHARGED. LEFT THE UNIT AT 1700 VIA WHEEL CHAIR WITH , SHE WAS DRESSED IN HER CLOTHING THAT WAS SOILED WITH URINE. OLIVA RUEDA, GOT APPROVAL FROM NURSING TRANSCRIBING OPERATORS SUPERVISOR TO ALLOW PT TO BE DC IN [facility] GOWN. PATIENT AND DID NOT WANT HER TO WEAR THE GOWN. EXIT CARE WAS PROVIDED (MRSA, SMOKING, VTE, CELLULITIS, PNEUMONIA), NEW PRESCRIPTION WAS GIVEN WITH INSTRUCTIONS. BELONGING LIST WAS CHECKED OFF. PT REFUSED PICTURES OF WOUND. HEARD CATHETER WAS REMOVED, PATIENT WAS ABLE TO VOID. MIDLINE ON RIGHT UPPER ARM WAS REMOVED, NO BLEEDING AT SITE. IV ON LEFT HAND WAS REMOVED. PATIENT LEFT IN STABLE CONDITION. PT STATES THAT HOME MEDICATIONS WERE TAKEN HOME BY HER , WAS UNABLE TO FIND THE MEDICATION FORMS IN PATIENT'S CHART.
== END 2019-06-25 17:00 | disposition home or self-care (01) | DRG 602 ==
LOC: ER 14:01 → MED 17:20 → ICU 06-23 14:45 → TELE1 06-24 18:26 → MEDSG1 06-25 11:11
PROVIDERS: ADMIT Nurse Practitioner Acute Care; ATTEND Nurse Practitioner Acute Care
PROC: 5A09357 Assistance with Respiratory Ventilation, Less than 24 Consecutive Hours, Continuous Positive Airway Pressure (ICD-10-PCS; principal; 2019-06-23)
PROC: 05H933Z Insertion of Infusion Device into Right Brachial Vein, Percutaneous Approach (ICD-10-PCS; principal; 2019-06-23)
DX: L03.116 Cellulitis of left lower limb (principal); J96.22 Acute and chronic respiratory failure with hypercapnia; J96.21 Acute and chronic respiratory failure with hypoxia; N39.0 Urinary tract infection, site not specified; E66.2 Morbid (severe) obesity with alveolar hypoventilation; Z68.43 Body mass index [BMI] 50.0-59.9, adult; G93.40 Encephalopathy, unspecified; L03.115 Cellulitis of right lower limb; E11.9 Type 2 diabetes mellitus without complications; D50.9 Iron deficiency anemia, unspecified; I11.0 Hypertensive heart disease with heart failure; I50.9 Heart failure, unspecified; J44.9 Chronic obstructive pulmonary disease, unspecified; F41.9 Anxiety disorder, unspecified; Z79.899 Other long term (current) drug therapy; Z79.84 Long term (current) use of oral hypoglycemic drugs; E78.5 Hyperlipidemia, unspecified; E83.42 Hypomagnesemia; D69.6 Thrombocytopenia, unspecified; F20.9 Schizophrenia, unspecified; F32.9 Major depressive disorder, single episode, unspecified; Z79.51 Long term (current) use of inhaled steroids; M19.90 Unspecified osteoarthritis, unspecified site; F17.200 Nicotine dependence, unspecified, uncomplicated
CPT/HCPCS: 36415; 36600; 71045-TC; 80048-TC; 80061-TC; 80076-TC; 80202-TC; 82728-TC; 82803-TC; 82962-TC; 83540-TC; 83605-TC; 83735-TC; 83880; 84100-TC; 85025-TC; 85730-TC; 87040-TC; 87081-TC; 93971-TC; 97116-TC; 97530-TC; A6248; G0378; J1815; J1940; J2270; J2405; J3370; J7040; J7050; J7060

== ENCOUNTER 2020-03-01 20:31 | Inpatient (IN) | payer OTHER ==
[~2020-03-01] VITALS: Ht 162.6 cm; Wt 111.6 kg
[~2020-03-01 20:31] MED LIST changes: -ACET-2605 PO; +BENZ2AMP3 PO; -BUPR-51 PO; -CLON0.2T PO; +DICL50TA7 PO; -FLUO-120 PO; -HYDR25TA4 PO; -LORA10TA7 PO; -LOSA100T31 PO; -MONT10TA22 PO; -NITR100C15 PO; +QUET300T2 PO; +ROSU5TAB PO; +TEMA30CA PO
--- NOTE | 2020-03-01 20:40 | NUR ---
PT CAME TO THE ED C/O GENERALIZED ABDOMINAL PAIN. +NV. PT AAOX4, RESPIRATIONS EVEN AND UNLABORED ON RA W/ NAD NOTED. PT CONNECTED TO THE FLOOR INSTALLER AND POX
--- NOTE | 2020-03-01 20:45 | NUR ---
BLOOD COLLECTED AND SENT TO LAB
[2020-03-01] MEDS ORDERED: MORPHINE SULFATE INJ 4 MG/ML DISP.SYRIN ONE ×2 (20:58→23:05)
[2020-03-01] MEDS ORDERED: ONDANSETRON HCL/PF 4 MG/2 ML VIAL ONE (20:58)
[2020-03-01] MEDS ORDERED: MORPHINE SULFATE INJ 2 MG/ML DISP.SYRIN IV ONE ×2 (21:00→23:00)
[2020-03-01] MEDS ORDERED: IV NS 0.9% 1,000 ML BAG IV ONE (21:00)
[2020-03-01] MEDS ORDERED: ONDANSETRON HCL/PF 4 MG/2 ML VIAL IVP ONE (21:00)
--- NOTE | 2020-03-01 21:00 | NUR ---
URINE COLLECTED AND SENT TO LAB
[2020-03-01 21:15] LABS: APPEARANCE,URINE Clear (CLEAR); BILIRUBIN,URINE MODERATE (NEGATIVE); BLOOD, URINE Negative Ery/uL (NEGATIVE); COLOR,URINE Yellow (YELLOW); KETONES,URINE 15 (NEGATIVE); LEUKOCYTE ESTERASE ,URINE Negative (NEGATIVE); NITRITE, URINE Negative (NEGATIVE); PH,URINE 8.5 (5.0-8.0); PROTEIN,URINE 100 mg/dl (NEGATIVE); UGLUCOSE Negative (NEGATIVE)
[2020-03-01 21:15] LABS: BASOPHILS # (AUTO) 0.1 /CMM (0.0-0.2); BASOPHILS % (AUTO) 0.6 % (0.0-2.0); EOSINOPHILS % (AUTO) 0.5 % (0.0-6.0); HEMATOCRIT 50 % (33-45); HEMOGLOBIN 15.4 g/dL (11.5-14.8); LYMPHOCYTES % (AUTO) 20.8 % (20.0-44.0); MEAN CORPUSCULAR HGB CONC 31 g/dl (31.0-36.0); MEAN CORPUSCULAR VOLUME 69 fL (82-100); MONOCYTES # (AUTO) 0.8 /CMM (0.1-1.30); NEUTROPHILS # (AUTO) 6.5 /CMM (1.8-8.9); NEUTROPHILS % (AUTO) 69.1 % (43.0-81.0); PLATELET COUNT (AUTO) 163 /CMM (150-450); RED BLOOD CELL COUNT(AUTO) 7.21 MIL/uL (4.0-5.2); WHITE BLOOD COUNT (AUTO) 9.4 K/uL (4.3-11.0)
[2020-03-01 21:18] LABS: BACTERIA,URINE Few /HPF (None Seen); RBC,URINE 0-2 /HPF (0-2); SQUAMOUS EPITHELIAL CELL,UR Few /HPF (None Seen); WBC,URINE 0-2 /HPF (0-3)
[2020-03-01 21:29] LABS: CALCIUM, SERUM 9.2 mg/dL (8.5-10.1); CREATININE 0.8 mg/dL (0.6-1.3)
[2020-03-01 21:42] LABS: ALBUMIN 3.4 g/dL (3.4-5.0); BILIRUBIN,DIRECT 0.4 mg/dL (0.0-0.2); BILIRUBIN,TOTAL 0.9 mg/dL (0.2-1.0); TOTAL PROTEIN, SERUM 6.5 g/dL (6.4-8.2)
[2020-03-01] MEDS ORDERED: POTASSIUM CHLORIDE 20 MEQ TAB.PRT.SR PO ONE ×2 (21:57→22:00)
[2020-03-01] MEDS ORDERED: FUROSEMIDE 40 MG/4 ML VIAL IV ONE (23:30)
[2020-03-01] MEDS ORDERED: FUROSEMIDE 40 MG/4 ML VIAL ONE (23:30)
--- NOTE | 2020-03-02 00:10 | NUR ---
OSMAN RAMSEY TALKING [facility] REG[facility].
[2020-03-02] MEDS ORDERED: ALBUTEROL SULFATE INH 18 GM HFA.AER.AD IH PRN ×2 (01:00→09:04)
[2020-03-02] MEDS ORDERED: clonazePAM 2 MG TABLET PO PRN (01:00)
--- NOTE | 2020-03-02 01:15 | NUR ---
TELE 321-0
--- NOTE | 2020-03-02 01:16 | NUR ---
NURSE WILL CALL BACK TO GIVE REPORT
[2020-03-02] MEDS ORDERED: HYDROCODONE/APAP 5/325MG TABLET PO PRN (01:30)
[2020-03-02] MEDS ORDERED: ONDANSETRON HCL/PF 4 MG/2 ML VIAL IVP PRN (01:30)
[2020-03-02] MEDS ORDERED: ACETAMINOPHEN 325 MG TABLET PO PRN (01:30)
[2020-03-02] MEDS ORDERED: MAG HYDROX/AL HYDROX/SIMETH 30 ML UDC PO PRN (01:30)
[2020-03-02] MEDS ORDERED: ZOLPIDEM TARTRATE 5 MG TABLET PO PRN (01:30)
--- NOTE | 2020-03-02 01:30 | NUR ---
REPORT CALLED TO DRESS OPERATORNAMITA PEREIRA. WILL TRANSPORT PT VIA [facility]S PROT[facility]OL.
--- NOTE | 2020-03-02 02:11 | NUR ---
MS/TELE/RN RECEIVED PATIENT FROM [facility] AT AROUND 0147 VIA [employer]. PATIENT WAS AWAKE, ALERT, ORIENTED, COMFORTABLE, NO C/O PAIN, NO DISTRESS NOTED, UNABLE TO DO ADMISSION HISTORY PATIENT REFUSED TO ANSWER QUESTIONS, PER PATIENT " I WANT TO SLEEP NOW AND I WANT YOU TO TURN OFF THE LIGHT", PATIENT ALSO REFUSED PHYSICAL ASSESSMENT. PER OLIVA BOJORQUEZ, SHE NOTED WOUND IN SACRUM WHEN SHE CHANGED HER DIAPER, BUT PATIENT REFUSED PHOTO TO BE TAKEN. PATIENT IS A FALL RISK, FALL PRECAUTIONS IMPLEMENTED, ENCOURAGED PATIENT TO CALL FOR ANY HELP TO PREVENT FALL, PATIENT VERBALIZED UNDERSTANDING. WILL MONITOR.
[2020-03-02 02:55] VITALS: BP 128/87
[2020-03-02 03:00] VITALS: BP 128/87
[2020-03-02 04:00] VITALS: BP 137/92
--- NOTE | 2020-03-02 06:05 | NUR ---
MS/TELE/RN PATIENT IS SLEEPING AT THIS TIME, APPEAR COMFORTABLE, NO SIGNS OF DISTRESS NOTED, CALL LIGHT IN REACH, WILL CONTINUE TO MONITOR.
--- NOTE | 2020-03-02 07:55 | NUR ---
MS RN RECEIVED ON BED, AWAKE,ALERT,ORIENTED X4,NOT IN ANY FORM OF DISTRESS, RESPIRATIONS EVEN AND UNLABORED,NO SOB NOTED, LUNGS ARE DIMINISHED, ABDOMEN SOFT,POSITIVE BOWEL SOUNDS,DENIES PAIN AT THIS ITYME,ALL NEEDS ATTENDED.
[2020-03-02] MEDS ORDERED: ENOXAPARIN SODIUM 40 MG/0.4 ML DISP.SYRIN SQ SCH (08:30)
[2020-03-02] MEDS ORDERED: clonazePAM 1 MG TABLET PO PRN (08:45)
[2020-03-02] MEDS ORDERED: DICLOFENAC SODIUM 25 MG TABLET.DR PO SCH (09:00)
[2020-03-02] MEDS: POTASSIUM CHLORIDE 20 MEQ TAB.PRT.SR PO SCH ×3 (09:28→12:51)
[2020-03-02] MEDS: GABAPENTIN 300 MG CAPSULE PO SCH ×2 (09:28→16:55)
[2020-03-02] MEDS: METFORMIN 500 MG TABLET PO SCH ×2 (09:29→16:55)
[2020-03-02] MEDS: VALSARTAN 80 MG TABLET PO SCH (09:31)
[2020-03-02] MEDS: FUROSEMIDE 40 MG/4 ML VIAL IV SCH ×2 (09:33→12:30)
[2020-03-02] MEDS: MORPHINE SULFATE INJ 2 MG/ML DISP.SYRIN IV PRN ×2 (09:35→22:30)
--- NOTE | 2020-03-02 09:50 | NUR ---
MS RN DUE MEDS GIVEN,TOLERATED WELL, CO2 RESULT RECEIVED FROM LAB, RT NOTIFIED, O2 LOWERED TO 2 LITERS PER HOUR, WILL MONITOR PATIENT.
--- NOTE | 2020-03-02 09:55 | NUR ---
MS NAMITA ORDERS GIVEN BY DR. ATKINSON TODAY AND CARRIED OUT.
--- NOTE | 2020-03-02 11:00 | NUR ---
MS RN WAS SEEN BY DR. DLEEON AND WILL REFER TO LABORER [employer] DR. BRADLEY CANTRELL [place].
[2020-03-02 11:10] LABS: BASOPHILS % (AUTO) 0.5 % (0.0-2.0); EOSINOPHILS % (AUTO) 0.7 % (0.0-6.0); HEMATOCRIT 49 % (33-45); HEMOGLOBIN 14.9 g/dL (11.5-14.8); LYMPHOCYTES # (AUTO) 2.3 /CMM (0.8-4.8); LYMPHOCYTES % (AUTO) 25.5 % (20.0-44.0); MEAN CORPUSCULAR HGB CONC 30 g/dl (31.0-36.0); MEAN CORPUSCULAR VOLUME 70 fL (82-100); MONOCYTES # (AUTO) 1.1 /CMM (0.1-1.30); MONOCYTES % (AUTO) 11.7 % (2.0-12.0); NEUTROPHILS # (AUTO) 5.5 /CMM (1.8-8.9); NEUTROPHILS % (AUTO) 61.6 % (43.0-81.0); PLATELET COUNT (AUTO) 157 /CMM (150-450); RED BLOOD CELL COUNT(AUTO) 7.05 MIL/uL (4.0-5.2)
[2020-03-02 11:30] LABS: ALBUMIN 3.3 g/dL (3.4-5.0); BILIRUBIN,TOTAL 0.6 mg/dL (0.2-1.0); CALCIUM, SERUM 8.9 mg/dL (8.5-10.1); CREATININE 0.8 mg/dL (0.6-1.3); MAGNESIUM 1.9 mg/dL (1.8-2.4); PHOSPHORUS 4.9 mg/dL (2.5-4.9); POTASSIUM 3.8 mmol/L (3.5-5.1); TOTAL PROTEIN, SERUM 6.4 g/dL (6.4-8.2)
[2020-03-02 11:53] LABS: THYROID STIMULATING HORMONE 0.365 uIU/mL (0.358-3.74)
[2020-03-02 12:00] VITALS: BP 117/74
--- NOTE | 2020-03-02 14:00 | NUR ---
MS RN DR. HUERTA CALLED, WILL HAVE A OUTSIDE APPOINMENT W/ PATIENT WHEN DC.
[2020-03-02] MEDS ORDERED: FUROSEMIDE 20 MG/2 ML VIAL IV ONE (15:00)
[2020-03-02 16:00] VITALS: BP 136/83
[2020-03-02] MEDS: DICLOFENAC SODIUM 25 MG TABLET.DR PO SCH (16:56)
--- NOTE | 2020-03-02 19:17 | NUR ---
MS RN ON BED,ALL NEEDS ATTENDED.
--- NOTE | 2020-03-02 19:23 | NUR ---
DISPLAY SPECIALIST OPENING NOTE RECEIVED PATIENT IN BED. A/OX3. ON OXYGEN 2L/MIN VIA NASAL CANNULA. RESPIRATIONS ARE EVEN AND UNLABORED. NO S/S SOB NOTED. NO C/O PAIN AT THIS TIME. EXTERNAL TELE MONITOR READS SR - ST, CURRENTLY SINUS TACH HR 102. IN NO APPARENT DISTRESS. IV ACCESS IN CLINT PICC LINE PATENT AND SALINE LOCKED. BED IS LOW AND LOCKED, HOB ELEVATED IN SEMI FOWLERS, SIDE RIALS UP X2. CALL LIGHT WITHIN REACH. WILL CONTINUE TO MONITOR.
[2020-03-02 20:00] VITALS: BP 122/66
[2020-03-02] MEDS ORDERED: QUETIAPINE FUMARATE 100 MG TABLET PO SCH (22:00)
[2020-03-02] MEDS ORDERED: TEMAZEPAM 15 MG CAPSULE PO SCH (22:00)
[2020-03-02] MEDS ORDERED: ATORVASTATIN 10 MG TABLET PO SCH (22:00)
--- NOTE | 2020-03-02 22:30 | NUR ---
INBOUND SALES REPRESENTATIVE NOTE ADMINISTERED PRN MORPHINE 2MG FOR PAIN IN ABDOMEN 07/29. WILL CONTINUE TO MONITOR.
[2020-03-03] VITALS (58 sets, daily range): BP systolic 58–194; BP diastolic 26–122
--- NOTE | 2020-03-03 06:41 | NUR ---
TECHNOLOGY TEACHER CLOSING NOTE PATIENT IN BED. A/OX3. REMAINS ON OXYGEN 2L/MIN VIA NASAL CANNULA. RESPIRATIONS ARE EVEN AND UNLABORED. NO SOB NOTED. MANAGED PAIN WITH MORPHINE 2MG. EXTERNAL TELE MONITOR READS SR - ST. NO DISTRESS NOTED. IV ACCESS MAINTAINED IN CLINT PICC LINE PATENT AND SALINE LOCKED. BED REMAINS LOW AND LOCKED, HOB ELEVATED IN SEMI FOWLERS, SIDE RIALS UP X2. CALL LIGHT WITHIN REACH. WILL ENDORSE TO NEXT SHIFT
--- NOTE | 2020-03-03 07:30 | NUR ---
Paient in deep sleep, moving to deep pain.
[2020-03-03 07:43] LABS: BASOPHILS % (AUTO) 0.2 % (0.0-2.0); EOSINOPHILS % (AUTO) 0.2 % (0.0-6.0); HEMATOCRIT 46 % (33-45); HEMOGLOBIN 14.1 g/dL (11.5-14.8); LYMPHOCYTES % (AUTO) 10.6 % (20.0-44.0); MEAN CORPUSCULAR HGB CONC 31 g/dl (31.0-36.0); MEAN CORPUSCULAR VOLUME 71 fL (82-100); MONOCYTES % (AUTO) 10.6 % (2.0-12.0); NEUTROPHILS # (AUTO) 7.7 /CMM (1.8-8.9); NEUTROPHILS % (AUTO) 78.4 % (43.0-81.0); PLATELET COUNT (AUTO) 118 /CMM (150-450); RED BLOOD CELL COUNT(AUTO) 6.56 MIL/uL (4.0-5.2); WHITE BLOOD COUNT (AUTO) 9.8 K/uL (4.3-11.0)
[2020-03-03 07:58] LABS: BILIRUBIN,TOTAL 0.8 mg/dL (0.2-1.0); CALCIUM, SERUM 8.8 mg/dL (8.5-10.1); CREATININE 2.1 mg/dL (0.6-1.3); MAGNESIUM 1.7 mg/dL (1.8-2.4); PHOSPHORUS 4.3 mg/dL (2.5-4.9); POTASSIUM 3.9 mmol/L (3.5-5.1); TOTAL PROTEIN, SERUM 5.9 g/dL (6.4-8.2)
--- NOTE | 2020-03-03 08:29 | NUR ---
WOUND CARE CONSULT: UNABLE TO SEE PT AT THIS TIME FOR SKIN ASSESSMENT PER RN DUE TO STAT ORDERS BEING CARRIED OUT PER PMD. MD IN WITH PT. WILL SEE PT FOR SKIN ASSESSMENT PT CONDITION PERMITS. PER NURSING REPORT, THERE IS A SACRAL ULCER PRESENT ON ADMISSION BUT PT PREVIOUSLY REFUSED ASSESSMENT OR PHOTO.
[2020-03-03] MEDS ORDERED: IV NS 0.9% 500 ML IV ONE ×2 (08:30→10:00)
--- NOTE | 2020-03-03 08:30 | NUR ---
Order for stat CT head , ABG per doc.Romie.
--- NOTE | 2020-03-03 08:30 | NUR ---
IV bolus NS 0.9% 500ml. administrated
--- NOTE | 2020-03-03 08:58 | NUR ---
patient taken by radiology staff for CT head
[2020-03-03 09:00] LABS: ABG BASE EXCESS 11.6 mmol/L; ABG OXYGEN SATURATION 86.9 % (92.0-98.5); ABG PH 7.357 (7.350-7.450); ABG PO2 54.2 mmHg (75.0-100.0); AaDO2 58.1 mmHg; COHb 2.4 % (0.5-1.5); MetHb 0.2 % (0.0-1.5); O2Hb 84.6 % (94.0-97.0); SITE, ABG Right Radial; VENT MODE, BG 2L NASAL CANULA
[2020-03-03] MEDS: DICLOFENAC SODIUM 25 MG TABLET.DR PO SCH (09:00)
[2020-03-03] MEDS: GABAPENTIN 300 MG CAPSULE PO SCH (09:00)
[2020-03-03] MEDS ORDERED: Z GUARD REMEDY 2 OZ OINT TP PRN (09:00)
[2020-03-03] MEDS: METFORMIN 500 MG TABLET PO SCH (09:00)
[2020-03-03] MEDS: VALSARTAN 80 MG TABLET PO SCH (09:00)
[2020-03-03] MEDS: Z GUARD REMEDY 2 OZ OINT TP SCH (09:27)
--- NOTE | 2020-03-03 09:30 | NUR ---
Second IV bolus 0.9 NS 500ml given
--- NOTE | 2020-03-03 10:25 | NUR ---
WOUND CARE: STILL UNABLE TO SEE PT FOR SKIN ASSESSMENT DUE TO PT UNSTABLE, NOW ON BIPAP AND BEING TRANSFERRED TO ICU. PER NURSING STAFF, PT HAS BEEN PREVIOUSLY REFUSING ALL SKIN ASSESSMENTS. RECOMMENDATIONS MADE FOR SKIN PROTECTION AND DISCUSSED WITH NURSING STAFF.
[2020-03-03] MEDS ORDERED: Magnesium 1GM/D5W 100ML PREMIX 100 ML IV SCH (10:40)
--- NOTE | 2020-03-03 10:40 | NUR ---
Patient transferred to ICu room 258. General information given to charge nurse. NAMITA Osman will call back for report later.
--- NOTE | 2020-03-03 11:00 | NUR ---
SPOOLING SUPERVISOR: got pt from [facility] without report, pt is lethargic, on Bipap 20/8, FiO2 50%, O2sat. over 94% now, no SOB, SR/ST up to 120, SBP over 100, will call for report
--- NOTE | 2020-03-03 11:40 | NUR ---
RT pt received on bipap, settings: 08/06 RR 18 80%. abg to follow in 1 hr.
--- NOTE | 2020-03-03 11:40 | NUR ---
ELECTRICIAN DECK: called to [facility], got report
--- NOTE | 2020-03-03 11:50 | NUR ---
RT ABG result: ph 7.24 co2 94 po2 91 hco2 39[address] intubation [address] gill
[2020-03-03] MEDS: IV NS 0.9% 1,000 ML IV PRN ×2 (11:55→20:23)
--- NOTE | 2020-03-03 12:00 | NUR ---
SNACK FOODS MIXER OPERATOR: evaluated pt.,ordered ABG
--- NOTE | 2020-03-03 12:17 | NUR ---
PT PLACED ON NON INVASIVE VENTILATION PER MD ORDERS. NO RESPIRATORY DISTRESS NOTED. ALARMS ON AND AUDIBLE. TRANSFERRED TO ICU. Addendum: 03/03/20 at 1219 by MARIEL CRESPO RT Amended: Links added.
--- NOTE | 2020-03-03 12:30 | NUR ---
PUBLICATIONS MANAGER: PM, bedbath, skin care done, sacral area skin is intact, little redness, zquard applied, diaper was wet, soft stool, little light bloody discharge, unable to recognize (rectally or from vagina), belly is soft, OB MD consult is waiting by report, getting NS 250ml/h total 2L, f/c placed in, 20ml urine out, UA sample collected
[2020-03-03 12:50] LABS: ABG BASE EXCESS 8.4 mmol/L; ABG PCO2 94.1 mmHg (35.0-45.0); ABG PH 7.244 (7.350-7.450); ABG PO2 91.3 mmHg (75.0-100.0); AaDO2 380.3 mmHg; COHb 1.9 % (0.5-1.5); MetHb 0.2 % (0.0-1.5); SITE, ABG Right Radial; VENT MODE, BG BIPAP 20/8 80%
--- NOTE | 2020-03-03 13:15 | NUR ---
VIRTUALIZATION CONSULTANT: ABG pH 7.24/94/91/39, ordered: intubation
[2020-03-03] MEDS: IPRATROPIUM NEB FS 0.5 MG/2.5 ML AMPUL.NEB NEB SCH ×4 (13:21→22:56)
[2020-03-03] MEDS: methylPREDNISolone SOD SUCC 125 MG/2ML VIAL IV SCH ×2 (13:26→16:24)
--- NOTE | 2020-03-03 13:30 | NUR ---
CONTOUR BAND SAW OPERATOR VERTICAL: SBP 70-80, SR, ordered Levophed gtt
[2020-03-03] MEDS ORDERED: NOREPINEPHRINE 8 MG in IV NS 0.9% 242 ML IV PRN (14:00)
--- NOTE | 2020-03-03 14:00 | NUR ---
DOOR TO DOOR LEAD GENERATION: ER intubated pt. ETT 7.5, AC 20/500/100%/p5, O2sat. over 92%, Diprivan gtt started
[2020-03-03] MEDS: PROPOFOL 100 ML IV PRN ×4 (14:03→23:24)
--- NOTE | 2020-03-03 14:15 | NUR ---
RAIL CAR MAINTENANCE MECHANIC: pt is little restless, coughing, suctioned well, applied soft wrists restraints, continue increase Diprivan gtt, R.Arm PICC placed in/can use per PICC AUTO GARAGE ATTENDANT
[2020-03-03] MEDS ORDERED: SUCCINYLCHOLINE CHLORIDE 20 MG/ML VIAL IV ONE ×2 (14:18→17:25)
[2020-03-03] MEDS ORDERED: ETOMIDATE 2 MG/ML VIAL IV ONE ×2 (14:18→17:25)
--- NOTE | 2020-03-03 14:24 | NUR ---
RT @1400 pt was intubated due to post abg results. 7.5 ett was placed at 26 cm at the lip. pt was placed on the vent on the following settings:AC 20 500 100% +5. abg post 1 hr.
--- NOTE | 2020-03-03 14:30 | NUR ---
POLE INSPECTOR: updated with pt.current condition, soft belly, mixed urine/stool diaper with little light bloody discharge x1 with to ICU transfer
--- NOTE | 2020-03-03 14:55 | NUR ---
SURGICAL DEVICE SALES REPRESENTATIVE: evaluated CXR, ordered pull out ETT for 4 cm
--- NOTE | 2020-03-03 15:00 | NUR ---
SEAFOOD PROCESS WORKER: got multiple calls from pt family/updated with detailed report
[2020-03-03 15:27] LABS: APPEARANCE,URINE SL CLOUDY (CLEAR); BILIRUBIN,URINE SMALL (NEGATIVE); BLOOD, URINE MODERATE Ery/uL (NEGATIVE); COLOR,URINE YELLOW (YELLOW); KETONES,URINE NEGATIVE (NEGATIVE); LEUKOCYTE ESTERASE ,URINE NEGATIVE (NEGATIVE); NITRITE, URINE NEGATIVE (NEGATIVE); PROTEIN,URINE NEGATIVE (NEGATIVE); UGLUCOSE NEGATIVE (NEGATIVE); UROBILINOGEN,URINE 0.2 EU/dL (0.2)
[2020-03-03 15:52] LABS: CALCIUM, SERUM 8.5 mg/dL (8.5-10.1); CREATININE 2.4 mg/dL (0.6-1.3); POTASSIUM 4.7 mmol/L (3.5-5.1)
[2020-03-03 15:53] LABS: EOSINOPHIL,URINE None Seen
[2020-03-03 15:56] LABS: CREATININE, URINE 101.4 MG/DL (30.0-125.0); URINE TOTAL PROTEIN 36.1 mg/dL (0-11.9)
--- NOTE | 2020-03-03 16:00 | NUR ---
DIECAST MACHINE OPERATOR: ABG 7.42//32, updated, continue FiO2 85%
[2020-03-03 16:12] LABS: ABG BASE EXCESS 6.5 mmol/L; ABG PCO2 50.3 mmHg (35.0-45.0); ABG PH 7.425 (7.350-7.450); ABG PO2 99.6 mmHg (75.0-100.0); AaDO2 563.1 mmHg; MetHb 0.3 % (0.0-1.5); O2Hb 96.7 % (94.0-97.0); SITE, ABG Right Radial; VENT MODE, BG AC 20 500 100% +5
[2020-03-03] MEDS: ALBUTEROL HALF STRENGTH 1.25 MG/3 ML VIAL.NEB NEB SCH ×3 (16:34→22:56)
--- NOTE | 2020-03-03 17:00 | NUR ---
AUTO FINANCE SALES REP: pt is deeply sedated, decreased Diprivan to 30 mcg/kg/m, SBP over 100, stopped Levophed gtt, all PM/skin care done, pt.is suctioned well
--- NOTE | 2020-03-03 18:28 | NUR ---
RADIO INSTALLER AUTOMOBILE: pt is sedated well with 30 mcg/kg/m Diprivan gtt, reactive with suction, SR, SBP over 100, Levophed is off, O2sat. over 95%, no SOB/distress, started to make urine, second NS 1 L running, suctioned well
--- NOTE | 2020-03-03 19:45 | NUR ---
PT RECEIVED ORALLY INTUBATED WITH 7.5 ETT SECURED @ 23 CM LIP LINE ON MECHANICAL VENTILATION WITH NOTED SETTINGS . BREATHING TX DONE , NO ADVERSE REACTION NOTED. SX DONE. ETT SECURED AND PATENT. ALARMS ON AND AUDIBLE. VENT PLUGGED TO RED OUTLET. NO RESPIRATORY DISTRESS NOTED AT THIS TIME. WILL CONTINUE TO MONITOR T/O SHIFT.
--- NOTE | 2020-03-03 19:45 | NUR ---
ICU/FLASH DEVELOPER REPORT RECEIVED FROM THE TO DAY NURSE. SEE FLOWSHEET FOR ASSESSMENT, SKIN ISSUES ARE ADDRESSED ON FLOWSHEET ALONG WITH INTERVENTION TO EACH. PT IS ON SEDATION AT THIS TIME DUE TO INTUBATION. PT'S SATURATION WHILE INTUBATED IS 99-100%. WILL MONITOR THIS PT AND HIS SATURATION. PT WAS TURNED AND REPOSITIONED FOR COMFORT AND CARE. NO ACUTE DISTRESS SEEN AT THIS TIME. PT'S LEVO WAS STOPPED AT 1700, WILL WATCH FOR BP FOR ANY ACUTE CHANGES.
--- NOTE | 2020-03-03 22:10 | NUR ---
ICU/DIRECTOR OF HOTEL PT WAS GIVEN PM CARE, ALONG WITH ORAL CARE. PT TOLERATED THIS WELL, REMAINS ON CURRENT VENT SETTING WITH SATURATION AT 100%. PT WAS TURNED AND REPOSITIONED FOR COMFORT AND CARE. WILL CONTINUE TO MONITOR THIS PT, NO ACUTE DISTRESS SEEN AT THIS TIME.
[2020-03-04] VITALS (68 sets, daily range): BP systolic 113–177; BP diastolic 47–97
--- NOTE | 2020-03-04 00:15 | NUR ---
ICU/SCIENTIFIC INFORMATICS LEADER PT APPEARS TO BE TOLERATING CURRENT VENT SETTINGS WITH SATURATION AT 99-100%. WILL CONTINUE TO MONITOR THIS PT.
[2020-03-04] MEDS: IV NS 0.9% 1,000 ML IV PRN ×2 (00:54→10:23)
--- NOTE | 2020-03-04 01:00 | NUR ---
ICU/TRAINING DEVELOPMENT DIRECTOR PT APPEARED TO BE AGITATED, CHARGE NURSE MADE AWARE. INCREASED SEDATION TO 35MCG. WILL MONITOR THIS PT.
--- NOTE | 2020-03-04 02:10 | NUR ---
ICU/STOCK LETTERER PT APPEARED TO BE AGITATED WAS ABLE TO WAKE UP AND REACH FOR HER ETT TUBE, CHARGE NURSE MADE AWARE. INCREASED SEDATION TO 40MCG. WILL MONITOR THIS PT.
--- NOTE | 2020-03-04 02:20 | NUR ---
ICU/SENIOR COLDFUSION DEVELOPER PT WAS GIVEN PM CARE, ALONG WITH ORAL CARE. PT TOLERATED THIS WELL, REMAINS ON CURRENT VENT SETTING WITH SATURATION AT 100%. PT WAS TURNED AND REPOSITIONED FOR COMFORT AND CARE. WILL CONTINUE TO MONITOR THIS PT, NO ACUTE DISTRESS SEEN AT THIS TIME.
[2020-03-04] MEDS: PROPOFOL 100 ML IV PRN ×9 (03:01→23:02)
[2020-03-04] MEDS: ALBUTEROL HALF STRENGTH 1.25 MG/3 ML VIAL.NEB NEB SCH ×6 (03:10→23:30)
[2020-03-04] MEDS: IPRATROPIUM NEB FS 0.5 MG/2.5 ML AMPUL.NEB NEB SCH ×6 (03:10→23:30)
[2020-03-04] MEDS: MORPHINE SULFATE INJ 2 MG/ML DISP.SYRIN IV PRN ×2 (03:57→12:52)
--- NOTE | 2020-03-04 04:20 | NUR ---
ICU/CHILD SUPPORT INVESTIGATOR PT APPEARED TO BE AGITATED, CHARGE NURSE MADE AWARE THIS. INCREASED SEDATION TO 45MCG. AT THIS TIME CALLED [employer] SALES TO GET ORDER TO INCREASE SEDATION UP TO 100 MCG. AND ASLO MORPHINE 2MG IVP Q 4 HRS PRN . WILL MONITOR THIS PT. AND AT THIS TIME PLACED LEFT NARE N/G TUBE, CHECKED PLACEMENT. .
[2020-03-04 04:45] LABS: BASOPHILS % (AUTO) 0.1 % (0.0-2.0); HEMATOCRIT 44 % (33-45); HEMOGLOBIN 13.7 g/dL (11.5-14.8); LYMPHOCYTES # (AUTO) 0.9 /CMM (0.8-4.8); LYMPHOCYTES % (AUTO) 6.5 % (20.0-44.0); MEAN CORPUSCULAR HGB CONC 31 g/dl (31.0-36.0); MEAN CORPUSCULAR VOLUME 69 fL (82-100); MONOCYTES # (AUTO) 0.3 /CMM (0.1-1.30); MONOCYTES % (AUTO) 2.1 % (2.0-12.0); NEUTROPHILS # (AUTO) 12.6 /CMM (1.8-8.9); NEUTROPHILS % (AUTO) 91.3 % (43.0-81.0); PLATELET COUNT (AUTO) 95 /CMM (150-450); RED BLOOD CELL COUNT(AUTO) 6.41 MIL/uL (4.0-5.2); WHITE BLOOD COUNT (AUTO) 13.8 K/uL (4.3-11.0)
[2020-03-04 04:54] LABS: ALBUMIN 2.6 g/dL (3.4-5.0); BILIRUBIN,TOTAL 0.8 mg/dL (0.2-1.0); CALCIUM, SERUM 8.9 mg/dL (8.5-10.1); CREATININE 1.3 mg/dL (0.6-1.3); MAGNESIUM 1.9 mg/dL (1.8-2.4); PHOSPHORUS 2.8 mg/dL (2.5-4.9); POTASSIUM 3.5 mmol/L (3.5-5.1); TOTAL PROTEIN, SERUM 5.7 g/dL (6.4-8.2)
[2020-03-04 06:14] LABS: LYMPHOCYTES % (MANUAL) 8 % (16-48); MONOCYTES % (MANUAL) 4 % (0-11.0); NEUTROPHILS % (MANUAL) 88 (42-76)
[2020-03-04] MEDS ORDERED: POTASSIUM CHLORIDE 20 MEQ POWDER PACKET NG SCH (07:30)
--- NOTE | 2020-03-04 08:00 | NUR ---
PERL SOFTWARE ENGINEER: pt.is sedated with 35 mcg/kg/m Diprivan, max dose 100 mcg/order+ by report, can open eyes spont., grimacing, little restless, on wrists restraints, SR, SBP 140-155, will increase sedation, O2sat. over 95%, no SOB/deistress, suctioned well, NGT placement XR: Interval placement of enteric tube, the side-hole of which it is above the GE junction at the T8-9 level and for which tube advancement of a least 6 cm is suggested to ensure adequate positioning, 68cm in deep, very diminish sounds, nothing by suction, big GT loop is into oral cavity, NGT removed, no bloody discharge, will reinsert GT with good sedation
--- NOTE | 2020-03-04 08:05 | NUR ---
MECHANIC HELPER: one BM over night: no blood by report, abdomen: pt.is grimacing with palpation, painful/feeling tender, WBC 13.8, will s/w
[2020-03-04 08:21] LABS: ABG BASE EXCESS 8.7 mmol/L; ABG OXYGEN SATURATION 98.1 % (92.0-98.5); ABG PCO2 38.1 mmHg (35.0-45.0); ABG PH 7.539 (7.350-7.450); ABG PO2 97.7 mmHg (75.0-100.0); AaDO2 396.6 mmHg; COHb 0.7 % (0.5-1.5); MetHb 0.2 % (0.0-1.5); O2Hb 97.2 % (94.0-97.0); PEEP,BG 5 cm H2O; SITE, ABG Right Radial; VT, ABG 500 mL
[2020-03-04] MEDS: methylPREDNISolone SOD SUCC 125 MG/2ML VIAL IV SCH ×3 (08:23→16:17)
[2020-03-04] MEDS: Z GUARD REMEDY 2 OZ OINT TP SCH (08:23)
--- NOTE | 2020-03-04 09:25 | NUR ---
ROLLER MILL OPERATOR: called/updated with pt.current condition, BM without blood, abdomen painful with palpation/pt grimacing, WBC 13.8, waiting who spoke with OB
--- NOTE | 2020-03-04 09:40 | NUR ---
ACCOUNT GENERAL MANAGER: updated with pt.current condition, VS, sedation level, I/O, O2sat., labs, WBC 13.8/ on steroids too, BM without blood, painful abdomen palpation/tender, ABG, FiO2 75%, call, NPO, ordered: IVF NS@60ml/h, said OB will consult pt by outpatient service that possible only
--- NOTE | 2020-03-04 11:35 | NUR ---
FISHER DIVING: updated with pt.history, VS, pt current condition, sedation level, pressor off, ABG/vent setting, IVF, ordered: vent RR 16, continue titrate FiO2, RT notified
--- NOTE | 2020-03-04 12:24 | NUR ---
OUTBOUND TELEMARKETER: OGT 62cm placed in, good stomach sounds, straw stomach secretion out+, charge nurse verified. Pt is reactive by name/touch, rest, sedated with 50 mcg/kg/m Diprivan, c/o abdomen pain, on Morphine prn, pt.daughter Glenn called, got detailed info re pt.current condition, VS, sedation, vent support, orders, POC, for Qs re Dx details, prognosis, possible surgery, POC referred&got phone#
--- NOTE | 2020-03-04 17:30 | NUR ---
MINI LAB OPERATOR: pt.is sedated well with 50 mcg/kg/m Diprivan, reactive by touch/pain, cough reflex+, suctioned well, O2sat. over 96%, no SOB/distress, FiO2 75%/RT spoke with , SR, SBP over 90/below 160, all PM/skin care bone, BMx2: no blood, OGT residual: 10ml straw color stomach secretion, pt.repositioned q2h, skin under restraints: intact/WNL, no edema
--- NOTE | 2020-03-04 19:30 | NUR ---
ICU/PHARMACY INTERN REPORT RECEIVED FROM THE TO DAY NURSE. SEE FLOWSHEET FOR ASSESSMENT, SKIN ISSUES ARE ADDRESSED ON FLOWSHEET ALONG WITH INTERVENTION TO EACH. PT IS ON SEDATION AT THIS TIME DUE TO INTUBATION. PT'S SATURATION WHILE INTUBATED IS 99-100%. WILL MONITOR THIS PT AND HER SATURATION. PT WAS TURNED AND REPOSITIONED FOR COMFORT AND CARE. NO ACUTE DISTRESS SEEN AT THIS TIME. WILL MONITOR FOR ANY ACUTE CHANGES.
--- NOTE | 2020-03-04 22:05 | NUR ---
ICU/MANAGER RESORT PT WAS GIVEN PM CARE, ALONG WITH ORAL CARE. PT TOLERATED THIS WELL, REMAINS ON CURRENT VENT SETTING WITH SATURATION AT 100%. PT WAS TURNED AND REPOSITIONED FOR COMFORT AND CARE. WILL CONTINUE TO MONITOR THIS PT, NO ACUTE DISTRESS SEEN AT THIS TIME.
[2020-03-05] VITALS (34 sets, daily range): BP systolic 101–199; BP diastolic 57–100
[2020-03-05] MEDS: PROPOFOL 100 ML IV PRN ×10 (01:54→22:31)
[2020-03-05] MEDS: IV NS 0.9% 1,000 ML IV PRN ×2 (01:55→18:43)
--- NOTE | 2020-03-05 02:00 | NUR ---
ICU/INSURANCE SPECIALIST PT WAS GIVEN AM CARE, ALONG WITH ORAL CARE. PT TOLERATED THIS WELL, REMAINS ON CURRENT VENT SETTING WITH SATURATION AT 100%. PT WAS TURNED AND REPOSITIONED FOR COMFORT AND CARE. WILL CONTINUE TO MONITOR THIS PT, NO ACUTE DISTRESS SEEN AT THIS TIME.
--- NOTE | 2020-03-05 03:00 | NUR ---
ICU/ORDER BOOKER PT APPEARED TO HAVE PAIN 1010 USING FLACC SCALE, CHARGE NURSE MADE AWARE THIS. MORPHINE 2MG IVP GIVEN FOR THIS . WILL MONITOR THIS PT.
[2020-03-05] MEDS: MORPHINE SULFATE INJ 2 MG/ML DISP.SYRIN IV PRN (03:02)
[2020-03-05] MEDS: ALBUTEROL HALF STRENGTH 1.25 MG/3 ML VIAL.NEB NEB SCH ×6 (03:30→23:49)
[2020-03-05] MEDS: IPRATROPIUM NEB FS 0.5 MG/2.5 ML AMPUL.NEB NEB SCH ×6 (03:30→23:49)
[2020-03-05] MEDS: hydrALAZINE HCL IV 20 MG VIAL IV PRN (03:34)
--- NOTE | 2020-03-05 03:35 | NUR ---
ICU/KNOCK OUT HAND PT'S BLOOD PRESSURE IS 190'S-170'S, NOTIFIED CHARGE NURSE WHO THEN GAVE HYDRALAZINE FOR THIS.
[2020-03-05] MEDS ORDERED: POTASSIUM CHLORIDE 20 MEQ POWDER PACKET NG SCH (08:00)
--- NOTE | 2020-03-05 08:00 | NUR ---
Sedation Vacation Notes Propofol titrated per protocol. Patient alert, oriented x1-2. Makes eye contact, mouths words, follows command. Agitated and tries to remove restraints/get out of bed.
[2020-03-05] MEDS: methylPREDNISolone SOD SUCC 125 MG/2ML VIAL IV SCH ×3 (08:43→16:37)
[2020-03-05] MEDS: Z GUARD REMEDY 2 OZ OINT TP SCH (09:00)
[2020-03-05 09:11] LABS: ABG BASE EXCESS 7.9 mmol/L; ABG PCO2 50.3 mmHg (35.0-45.0); ABG PH 7.442 (7.350-7.450); ABG PO2 146.7 mmHg (75.0-100.0); AaDO2 334.6 mmHg; COHb 0.5 % (0.5-1.5); MetHb 0.2 % (0.0-1.5); O2Hb 98.3 % (94.0-97.0); SITE, ABG Right Radial; VENT MODE, BG AC 16 500 75% +5
[2020-03-05 09:11] LABS: BASOPHILS % (AUTO) 0.2 % (0.0-2.0); HEMATOCRIT 42 % (33-45); HEMOGLOBIN 12.9 g/dL (11.5-14.8); LYMPHOCYTES # (AUTO) 0.7 /CMM (0.8-4.8); MEAN CORPUSCULAR HGB CONC 31 g/dl (31.0-36.0); MEAN CORPUSCULAR VOLUME 68 fL (82-100); MONOCYTES # (AUTO) 0.6 /CMM (0.1-1.30); MONOCYTES % (AUTO) 3.9 % (2.0-12.0); NEUTROPHILS # (AUTO) 13.7 /CMM (1.8-8.9); NEUTROPHILS % (AUTO) 90.9 % (43.0-81.0); PLATELET COUNT (AUTO) 84 /CMM (150-450); RED BLOOD CELL COUNT(AUTO) 6.11 MIL/uL (4.0-5.2); WHITE BLOOD COUNT (AUTO) 15.1 K/uL (4.3-11.0)
[2020-03-05 09:40] LABS: CREATININE 0.7 mg/dL (0.6-1.3); POTASSIUM 3.4 mmol/L (3.5-5.1)
[2020-03-05 09:42] LABS: ALBUMIN 2.3 g/dL (3.4-5.0); BILIRUBIN,TOTAL 0.6 mg/dL (0.2-1.0); MAGNESIUM 1.7 mg/dL (1.8-2.4); TOTAL PROTEIN, SERUM 5.1 g/dL (6.4-8.2)
[2020-03-05] MEDS: BLOOD SUGAR DIAGNOSTIC 1 EACH STRIP IN SCH ×2 (17:26→23:58)
--- NOTE | 2020-03-05 18:59 | NUR ---
K 12 PRINCIPAL Shift Summary No COVID swab ordered. Patient is sedated at this time. See sedation vacation notes. FiO2 decreased this shift with no distress noted. Tele monitor attached, SR HR 60-80s. OGT clamped. Duncan draining to gravity. Large BM today. Wound care as ordered. Restraints in place. NPO except meds, endorsed fluid f/u + dvt prophylaxis f/u. AMAURI PICC infusing propofol @55mcg/kg/min and NS@60mL/hr. CLINT midline intact, patent. Daughter requests nicotine patch upon discharge.
--- NOTE | 2020-03-05 19:15 | NUR ---
ICU/OPENING RECEIVED PATIENT INTUBATED AND SEDATED. DESPITE SEDATION PATIENT IS ABLE TO MOVE ARMS AND HEAD. RESTRAINTS ARE APPLIED FOR SELF EXTUBATIONS PRECAUTIONS. PATIENT WITH NO SIGN OF ANY DISTRESS OR SOB. TOLERATING VENT SETTINGS ORDERED. SATURATING AT 100%. DIPRIVAN RUNNING AT 55MCG/KG/MIN ON AMAURI PICC LINE. FC DRAINING VIA GRAVITY. OGT IN PLACE FLUSHING WELL. ALL SAFETY PRECAUTIONS APPLIED. WILL CONTINUE TO MONITOR PATIENT THROUGHOUT SHIFT,
[2020-03-06] VITALS (26 sets, daily range): BP systolic 119–157; BP diastolic 39–107
[2020-03-06] MEDS: PROPOFOL 100 ML IV PRN ×9 (00:54→22:55)
[2020-03-06] MEDS: ALBUTEROL HALF STRENGTH 1.25 MG/3 ML VIAL.NEB NEB SCH ×6 (03:30→23:26)
[2020-03-06] MEDS: IPRATROPIUM NEB FS 0.5 MG/2.5 ML AMPUL.NEB NEB SCH ×6 (04:09→23:26)
[2020-03-06 04:40] LABS: BASOPHILS % (AUTO) 0.2 % (0.0-2.0); HEMATOCRIT 44 % (33-45); HEMOGLOBIN 13.5 g/dL (11.5-14.8); LYMPHOCYTES # (AUTO) 0.7 /CMM (0.8-4.8); LYMPHOCYTES % (AUTO) 4.9 % (20.0-44.0); MEAN CORPUSCULAR HGB CONC 31 g/dl (31.0-36.0); MEAN CORPUSCULAR VOLUME 68 fL (82-100); MONOCYTES # (AUTO) 0.5 /CMM (0.1-1.30); MONOCYTES % (AUTO) 3.8 % (2.0-12.0); NEUTROPHILS # (AUTO) 12.3 /CMM (1.8-8.9); NEUTROPHILS % (AUTO) 91.1 % (43.0-81.0); PLATELET COUNT (AUTO) 81 /CMM (150-450); RED BLOOD CELL COUNT(AUTO) 6.44 MIL/uL (4.0-5.2); WHITE BLOOD COUNT (AUTO) 13.5 K/uL (4.3-11.0)
[2020-03-06 04:41] LABS: ALBUMIN 2.5 g/dL (3.4-5.0); BILIRUBIN,TOTAL 0.6 mg/dL (0.2-1.0); CREATININE 0.8 mg/dL (0.6-1.3); MAGNESIUM 1.9 mg/dL (1.8-2.4); PHOSPHORUS 3.7 mg/dL (2.5-4.9); POTASSIUM 4.2 mmol/L (3.5-5.1); TOTAL PROTEIN, SERUM 5.6 g/dL (6.4-8.2)
[2020-03-06] MEDS: BLOOD SUGAR DIAGNOSTIC 1 EACH STRIP IN SCH ×3 (06:14→17:26)
--- NOTE | 2020-03-06 06:58 | NUR ---
ICU/CLOSING PATIENT SHOWING NO SIGN OF ANY DISTRESS. TOLERATING VENT SETTINGS ORDERED. PATIENT ABLE TO NOD HEAD FOR Y/N WHILE ON SEDATION. SATURATING AT 100% WITH NO SIGN OF ANY SOB. DIPRIVAN CONTINUES TO RUN AT 55MCG/KG/MIN. FC IN PLACE. NONEVENTFUL THROUGHOUT NIGHT. WILL ENDORSE TO MORNING SHIFT NURSE.
--- NOTE | 2020-03-06 07:20 | NUR ---
RN INITIAL NOTES RECEIVED PT INTUBATED, ON VENT. HOB ELEVATED. NO RESPIRATORY DISTRESS NOTED. NO SOB NOTED. PT SEDATED, ON DIPRIVAN AT 55MCG/KG/MIN. OGT IN PLACE. AMAURI PICC IN PLACE. FC IN PLACE. BLE ELEVATED. WILL MONITOR FOR CHANGES
--- NOTE | 2020-03-06 07:51 | NUR ---
WOUND CARE CONSULT: PT FOLLOWED BY SURGICAL TEAM FOR WOUND CARE. DEFER TO SURGICAL TEAM FOR WOUND TREATMENT PLAN. DISCUSSED SKIN PROTECTION WITH NURSING STAFF. CURRENT MARK SCORE IS 13.
[2020-03-06 08:14] LABS: ABG OXYGEN SATURATION 98.1 % (92.0-98.5); ABG PCO2 38.8 mmHg (35.0-45.0); ABG PH 7.486 (7.350-7.450); ABG PO2 100.3 mmHg (75.0-100.0); AaDO2 212.6 mmHg; COHb 0.8 % (0.5-1.5); MetHb 0.2 % (0.0-1.5); O2Hb 97.1 % (94.0-97.0); PEEP,BG 5 cm H2O; SITE, ABG Right Radial; VT, ABG 500 mL
[2020-03-06] MEDS: Z GUARD REMEDY 2 OZ OINT TP SCH (08:38)
[2020-03-06] MEDS: methylPREDNISolone SOD SUCC 125 MG/2ML VIAL IV SCH ×3 (08:38→17:25)
[2020-03-06] MEDS: IV NS 0.9% 1,000 ML IV PRN (10:26)
--- NOTE | 2020-03-06 11:30 | NUR ---
RN NOTES 1100 SEEN AND EXAMINED BY DR COE. PT OFF SEDATION. AWAKE, FOLLOW SIMPLE COMMANDS. PER DR COE, WILL DO COVID SWAB AND WAIT FOR RESULT BEFORE EXTUBATION. WILL RESUME DIPRIVAN NEEDED. WILL CLOSELY MONITOR 1130 SEEN AND EXAMINED BY DR MCINTOSH. AWARE OF LAB VALUES AND CXR RESULT. WILL CLOSELY MONITOR
--- NOTE | 2020-03-06 14:18 | NUR ---
vent changes below as order: AC 12 Addendum: 03/06/20 at 1418 by GAMA YBARRA RT Amended: Links added.
--- NOTE | 2020-03-06 18:35 | NUR ---
RN CLOSING NOTES NO SIGNIFICANT CHANGE NOTED. PT REMAINS INTUBATED, ON VENT. NO RESPIRATORY DISTRESS NOTED. KEPT HOB ELEVATED. KEPT CLEAN AND DRY. KEPT COMFORTABLE. BLE ELEVATED. WILL ENDORSE FOR CONTINUITY OF CARE.
[2020-03-07] VITALS (36 sets, daily range): BP systolic 113–167; BP diastolic 63–96
[2020-03-07] MEDS: BLOOD SUGAR DIAGNOSTIC 1 EACH STRIP IN SCH ×4 (00:46→16:38)
[2020-03-07] MEDS: PROPOFOL 100 ML IV PRN ×11 (01:19→23:21)
[2020-03-07] MEDS: IV NS 0.9% 1,000 ML IV PRN ×2 (02:56→18:12)
[2020-03-07] MEDS: IPRATROPIUM NEB FS 0.5 MG/2.5 ML AMPUL.NEB NEB SCH ×6 (03:23→23:30)
[2020-03-07] MEDS: ALBUTEROL HALF STRENGTH 1.25 MG/3 ML VIAL.NEB NEB SCH ×6 (03:23→23:30)
--- NOTE | 2020-03-07 07:05 | NUR ---
ICU CLOSING NO EVENTFUL EVENTS OVERNIGHT. PATIENT TOLERATING VENT SETTINGS ORDERED. PATIENT CONTINUES ON DIPRIVAN AT 55MCG/KG/MIN. SATURATION AT 100%. ALL SAFETY PRECAUTIONS APPLIED. ENDORSED PATIENT TO MORNING SHIFT NURSE FOR STEVEN.
--- NOTE | 2020-03-07 07:08 | NUR ---
ICU CLOSING PATIENT CONTINUES ON SIMV MODE, HR AT 125 RESPIRATIONS AT 24 SATURATING AT 99%. PATIENT ONLY OPENS EYES WITH NO TRACKING. NO RESPONSE TO STIMULI BUT RESPONSE TO NAME. ALL SAFETY PRECAUTIONS APPLIED. ENDORSED PATIENT TO MORNING SHIFT NURSE FOR STEVEN. Addendum: 03/07/20 at 0711 by FRANKIE FLOR RN ENTERED IN WRONG PATIENTS CHART. DISREGARD PLEASE.
--- NOTE | 2020-03-07 07:40 | NUR ---
ICU/RN PT IS INTUBATED ON THE VENT AC MODE,SAT O2-100%.V/S STABLE,AFEBRILE.NO PAIN REPORTED AT THIS TIME.PT IS ON PROPOFOL DRIP.,AWAKE,ALERT ORIENTED.BILATERAL SOFT WRIST RESTRAIN ON,HIGH RISK OF SELF EXTUBATION.OG TUBE IN PLACE.CLAMPED.F/C DRAINING WITH YELLOW URINE.PT IS OBESE.RIGHT UPPER ARM PICC LINE INFUSING WITH DIPRIVAN AND IV FLUIDS ORDERED.SUCTION PROVIDED.REPOSITION FOR COMFORT.COVID TEST PENDING.LABS REVIEW.
[2020-03-07 08:06] LABS: ABG BASE EXCESS 3.6 mmol/L; ABG OXYGEN SATURATION 96.7 % (92.0-98.5); ABG PCO2 45.4 mmHg (35.0-45.0); AaDO2 215.4 mmHg; COHb 0.7 % (0.5-1.5); MetHb 0.1 % (0.0-1.5); O2Hb 95.9 % (94.0-97.0); SITE, ABG Right Radial
[2020-03-07] MEDS: methylPREDNISolone SOD SUCC 125 MG/2ML VIAL IV SCH ×3 (08:20→16:38)
[2020-03-07] MEDS: Z GUARD REMEDY 2 OZ OINT TP SCH (08:20)
--- NOTE | 2020-03-07 09:00 | NUR ---
ICU/RN DUE MEDS ARE GIVEN ORDERED.
[2020-03-07] MEDS ORDERED: DEXTROSE 50%-WATER 50 ML DISP.SYRIN IV PRN (13:30)
[2020-03-07] MEDS: INSULIN REGULAR, HUMAN 100 UNIT/ML 3 ML VIAL SQ PRN (18:04)
--- NOTE | 2020-03-07 19:30 | NUR ---
ICU OPENING RECEIVED PATIENT INTUBATED ANT SEDATED. PATIENT IS STILL ALERT AND ABLE TO MOVE ARMS, NOD HEAD, AND MOUTH WORDS. PATIENT IS TOLERATING CURRENT VENT SETTINGS AND SATURATING AT 97%. NSR HR AT 62 ON THE BEDSIDE MONITOR. DIPRIVAN RUNNING AT 55MCG/KG/MIN ON AMAURI PICC LINE AND NS AT 60CC/HR. MIDLINE WAS FLUSHED AND PATENT. FC IN PLACE WITH YELLOW KRISTINE OUTPUT. SAFETY PRECAUTIONS APPLIED. RESTRAINTS ON BILATERAL WRIST. WILL CONTINUE TO MONITOR PATIENT THROUGHOUT SHIFT.
[2020-03-08] VITALS (24 sets, daily range): BP systolic 93–167; BP diastolic 37–126
[2020-03-08] MEDS: INSULIN REGULAR, HUMAN 100 UNIT/ML 3 ML VIAL SQ PRN ×4 (00:16→18:34)
[2020-03-08] MEDS: BLOOD SUGAR DIAGNOSTIC 1 EACH STRIP IN SCH ×4 (00:17→18:31)
[2020-03-08] MEDS: PROPOFOL 100 ML IV PRN ×3 (02:19→07:07)
[2020-03-08] MEDS: ALBUTEROL HALF STRENGTH 1.25 MG/3 ML VIAL.NEB NEB SCH ×6 (03:30→23:13)
[2020-03-08] MEDS: IPRATROPIUM NEB FS 0.5 MG/2.5 ML AMPUL.NEB NEB SCH ×6 (03:30→23:13)
[2020-03-08 04:28] LABS: BASOPHILS % (AUTO) 0.1 % (0.0-2.0); HEMATOCRIT 46 % (33-45); HEMOGLOBIN 14.2 g/dL (11.5-14.8); LYMPHOCYTES # (AUTO) 0.5 /CMM (0.8-4.8); LYMPHOCYTES % (AUTO) 5.3 % (20.0-44.0); MEAN CORPUSCULAR HGB CONC 31 g/dl (31.0-36.0); MEAN CORPUSCULAR VOLUME 70 fL (82-100); MONOCYTES # (AUTO) 0.5 /CMM (0.1-1.30); MONOCYTES % (AUTO) 4.9 % (2.0-12.0); NEUTROPHILS # (AUTO) 8.3 /CMM (1.8-8.9); NEUTROPHILS % (AUTO) 89.7 % (43.0-81.0); PLATELET COUNT (AUTO) 74 /CMM (150-450); RED BLOOD CELL COUNT(AUTO) 6.65 MIL/uL (4.0-5.2); WHITE BLOOD COUNT (AUTO) 9.2 K/uL (4.3-11.0)
[2020-03-08 04:42] LABS: CALCIUM, SERUM 8.8 mg/dL (8.5-10.1); CREATININE 0.6 mg/dL (0.6-1.3)
[2020-03-08 06:38] LABS: LYMPHOCYTES % (MANUAL) 8 % (16-48); MONOCYTES % (MANUAL) 4 % (0-11.0); NEUTROPHILS % (MANUAL) 88 (42-76)
--- NOTE | 2020-03-08 07:30 | NUR ---
CUSTOMER SOLUTIONS TEAMMATE OPENING NOTE Received patient asleep in bed appears calm and relaxed. No signs of distress. On ETT and vent, settings as follow: AC 12 TV 500 fio2 30% peep 5 tolerating well. Patient is alert tries to speak and mouth words. Tele reading SB 58bpm. OGT in place clamped Duncan catheter in place draining dark yellow cloudy urine. On bilateral wrist soft restraints skin circulation appears adequate. AMAURI PICC line Propofol 55mcg and NS @ 60ml/hr running and CLINT midline in place. PLan to extubate today. Safety measures reinforced. Bed locked and on lowest position. Call light within reach. Siderails up x2. Will continue to monitor.
--- NOTE | 2020-03-08 07:35 | NUR ---
ICU CLOSING PATIENT IN BED WITH NO SIGN OF ANY DISTRESS. PATEINT SATURATING AT 100% AND TOLERATING VENT SETTINGS. NO SIGN OF ANY SOB. ALL SAFETY PRECAUTIONS APPLIED. WILL ENDORSE TO MORNING SHIFT NURSE FOR STEVEN.
--- NOTE | 2020-03-08 08:19 | NUR ---
RT pt placed on simv per md order. abg in 15 min. possible extubation post abg results per dr gill
--- NOTE | 2020-03-08 08:20 | NUR ---
BRYOLOGIST NOTE RECEIVED ORDER TO STOP PROPOFOL IN PREP FOR EXTUBATION.
[2020-03-08] MEDS: methylPREDNISolone SOD SUCC 125 MG/2ML VIAL IV SCH ×3 (08:34→17:16)
[2020-03-08] MEDS: Z GUARD REMEDY 2 OZ OINT TP SCH (08:35)
--- NOTE | 2020-03-08 08:45 | NUR ---
STONER OUT NOTE Patient pulled out OG tube.
[2020-03-08] MEDS ORDERED: DC PROPOFOL WHEN EXTUBATED XX PRN (09:00)
--- NOTE | 2020-03-08 09:45 | NUR ---
PUNCH MOLDER NOTE Relayed ABG results to . MD ordered to prep for extubation.
--- NOTE | 2020-03-08 10:30 | NUR ---
STEEL WHEEL ENGRAVER NOTE Patient was extubated tolerated well no signs of bleeding. Pt refused bipap. on NC 3L o2 sat 93%.
--- NOTE | 2020-03-08 10:40 | NUR ---
RT at 1024, pt was extubated with no complications. pt was suctioned orally pre and post extubation and suctioned via ett pre extubation. balloon was deflated and tube was removed. placed on 3lnc. pt sating 95%. will continue to monitor throughout shift
[2020-03-08] MEDS: IV NS 0.9% 1,000 ML IV PRN (11:18)
[2020-03-08] MEDS ORDERED: ALBUTEROL HALF STRENGTH 1.25 MG/3 ML VIAL.NEB NEB SCH (11:30)
[2020-03-08] MEDS ORDERED: IPRATROPIUM NEB FS 0.5 MG/2.5 ML AMPUL.NEB NEB SCH (11:30)
[2020-03-08] MEDS: hydrALAZINE HCL IV 20 MG VIAL IV PRN (11:41)
--- NOTE | 2020-03-08 12:48 | NUR ---
SPECIAL EVENT ASSISTANT NOTE Ordered swallow eval pt co of being hungry. gave ice chips tolerated well no coughing or aspiration noted. Spoke to her daughter informed latest status. extubated. she understood.
[2020-03-08 12:55] LABS: ABG BASE EXCESS 2.7 mmol/L; ABG OXYGEN SATURATION 93.6 % (92.0-98.5); ABG PCO2 40.2 mmHg (35.0-45.0); ABG PH 7.444 (7.350-7.450); AaDO2 100.7 mmHg; MetHb 0.3 % (0.0-1.5); O2Hb 92.4 % (94.0-97.0); SITE, ABG Left Radial
[2020-03-08] MEDS: MORPHINE SULFATE INJ 2 MG/ML DISP.SYRIN IV PRN (13:29)
[2020-03-08] MEDS ORDERED: HYDROCODONE/APAP 7.5/325MG 1 EACH TABLET PO PRN (14:30)
[2020-03-08] MEDS: HYDROCODONE/APAP 10/325MG TABLET PO PRN (14:37)
[2020-03-08] MEDS ORDERED: LORAZEPAM 1 MG TABLET PO PRN (15:00)
--- NOTE | 2020-03-08 15:03 | NUR ---
LUNCHEONETTE OPERATOR NOTE Patient started getting anxious and aggresive demanding more pain medication. Tries to get out of bed and starts yelling. Encourage to come back to bed. Pt started using profanity words demanding we give her a wheelchair. She wants to sit and watch TV. Put pt on wheelchair tolerated well. Enc ti keep calm. Informed MD. MD was at bedside. Ordered [place] 10-325. Crushed and mix with apple sauce tolerated well. Patient is very paranoid thinks everyone is talking about her.
[2020-03-08] MEDS ORDERED: QUETIAPINE FUMARATE 100 MG TABLET PO SCH ×2 (15:32→17:00)
[2020-03-08] MEDS: QUETIAPINE FUMARATE 100 MG TABLET PO SCH (15:38)
--- NOTE | 2020-03-08 19:08 | NUR ---
PERISHABLE FRUIT INSPECTOR CLOSING NOTES Patient in bed appears calm and relaxed. NC 3L tolerating well. no signs of distress. Tele reading 100-110 bpm. Pt is now on clear liquid diet tolerated well. FC in place draining tea colored urine. AMAURI picc line running NS 60ml/hr. CLINT midline in place and patent. Safety measures reinforced. VS within normal limits. All due meds given Kept clean and comfortable. Attended to all needs. No signs of pain or discomfort. Bed locked and on lowest position. Call light within reach. Endorsed to assembler 1st shift nurse for theresa.
--- NOTE | 2020-03-08 19:30 | NUR ---
PT RCVD ON 3L NC , PLACED PT ON NOCTURNAL BIPAP AT THIS TIME. NAMITA SULLIVAN NOTIFIED.
--- NOTE | 2020-03-08 19:30 | NUR ---
LIGHTING FIXTURES DECORATOR RCD PT W/DX RESP FAIL, CHF; PT IS ALERT/ORIENTED x2. WITH SITTER AT BEDSIDE PT BECAME AGGRESSIVE EARLIER; CALM AT THIS TIME. NSR ON MONITOR. ONO2 3L NC W/ORDERS FOR NOCTURNAL BIPAP. HEARD CATH WITH DARK YELLOW BLOOD TINGED URINE. AMAURI PICC LINE PATENT.
--- NOTE | 2020-03-08 20:00 | NUR ---
WEATHERSTRIP MACHINE OPERATOR PLACED ON BIPAP BY RT; RATE 12 08/08 35%.
--- NOTE | 2020-03-08 20:00 | NUR ---
MERCHANDISING DIRECTOR PT SITTING IN BED; ABLE TO TURN AND REPOSITION SELF. DECLINES TO BE TURNED AT THIS TIME. CONTINUE TO ENCOURAGE REPOSITIONING.
--- NOTE | 2020-03-08 20:10 | NUR ---
POCKET SECRETARY ASSEMBLER PT REQUESTED TO BE TAKEN OFF BIPAP AT THIS TIME. STATES SHE WANTS TO BE PUT ON AT 11 PM.
[2020-03-08] MEDS ORDERED: HALOPERIDOL LACTATE INJ 5 MG/ML VIAL IM PRN (21:30)
--- NOTE | 2020-03-08 22:01 | NUR ---
DUST COLLECTOR PT REMAINS SITTING IN BED. DECLINES TO BE REPOSITIONED AT THIS TIME. PER PT SHE WILL TURN WHEN SHE'S READY.
--- NOTE | 2020-03-08 23:00 | NUR ---
PT REFUSED TO PUT THE NOCTURNAL BIPAP BACK. RN LAURIE AWARE. NO SOB OR RESPIRATORY DISTRESS NOTED AT THIS TIME. WILL CONTINUE TO MONITOR THE PT T/O SHIFT.
--- NOTE | 2020-03-08 23:00 | NUR ---
RIVET DRIVER PT DECLINEDD THE BIPAP; STATES SHE IS DOING JUST FINE AND DOES NOT NEED. PT EDUCATION PROVIDED HOWEVER PT CONTINUED TO DECLINE. PT HOWEVER DID AGREE TO BE TURNED TO THE SIDE. PT INCREASINGLY MORE ALERT AT THIS TIME AND COMPLIANT. CONTINUE TO MONITOR.
[2020-03-09] VITALS (15 sets, daily range): BP systolic 104–157; BP diastolic 19–87
[2020-03-09] MEDS: BLOOD SUGAR DIAGNOSTIC 1 EACH STRIP IN SCH ×4 (00:38→17:39)
[2020-03-09] MEDS: INSULIN REGULAR, HUMAN 100 UNIT/ML 3 ML VIAL SQ PRN ×3 (00:58→17:56)
[2020-03-09] MEDS: ALBUTEROL HALF STRENGTH 1.25 MG/3 ML VIAL.NEB NEB SCH ×6 (02:57→23:30)
[2020-03-09] MEDS: IPRATROPIUM NEB FS 0.5 MG/2.5 ML AMPUL.NEB NEB SCH ×6 (02:58→23:30)
[2020-03-09] MEDS: IV NS 0.9% 1,000 ML IV PRN ×2 (03:40→19:41)
--- NOTE | 2020-03-09 05:48 | NUR ---
PEDIATRICIAN MANAGING PARTNER PT A/O; COMPLIANT WITH ALL CARE. RENDERED BATH. AGREES TO BE TURNED AND REPOSITIONED.
--- NOTE | 2020-03-09 07:15 | NUR ---
RN INITIAL NOTES RECEIVED PT AWAKE, A/O X2. ON 02 VIA NC. HOB ELEVATED. NO SOB NOTED. AMAURI PICC AND CLINT MIDLINE IN PLACE. IVF INFUSING. FC IN PLACE. NO HEMATURIA NOTED. PT COMFRTABLE. BLE ELEVATED. WILL CLOSELY MONITOR
[2020-03-09] MEDS: methylPREDNISolone SOD SUCC 125 MG/2ML VIAL IV SCH ×2 (08:10→16:53)
[2020-03-09] MEDS: QUETIAPINE FUMARATE 100 MG TABLET PO SCH ×2 (08:10→16:53)
[2020-03-09] MEDS: Z GUARD REMEDY 2 OZ OINT TP SCH (08:10)
--- NOTE | 2020-03-09 10:30 | NUR ---
RN NOTES SEEN AND EXAMINED BY YRIS ESCALANTE NP. AWARE OF PT'S CURRENT LAB VALUES AND CXR RESULT. ORDERED DOWNGRADE TO [place]. WILL CLOSELY MONITOR.
--- NOTE | 2020-03-09 12:53 | NUR ---
RN NOTES PT TRANSFERRED TO ROOM 304-1. PT A/O, ON 02 VIA ME. NO RESPIRATORY DISTRESS NOTED. NO SOB NOTED. DENIES ANY PAIN. REPORT GIVEN TO SOPHIE Rebollar RN. TOOK OVER PT'S CARE.
--- NOTE | 2020-03-09 13:00 | NUR ---
MS LEATHER CARTRIDGE BELT MAKER NOTES RECEIVED PATIENT IN BED IN MEDICALLY STABLE CONDITION. WILL CONTINUE TO MONITOR.
[2020-03-09] MEDS: HYDROCODONE/APAP 10/325MG TABLET PO PRN ×2 (14:35→20:59)
--- NOTE | 2020-03-09 18:43 | NUR ---
MS RN CLOSING NOTES PATIENT IN BED, AWAKE, A/O X3. PATIENT BREATHING ON ROOM AIR; BREATHING IS EVEN AND UNLABORED; NO SIGNS OF ACUTE DISTRESS NOTED AT THIS TIME. PAIN IS TREATED WITH PRN PAIN MEDICATION. AMAURI PICC AND CLINT MIDLINE PRESENT AND INTACT; FLUSHING WELL AND INFUSING NS AT 60 MLS/HR. SAFETY PRECAUTIONS IN PLACE; BED IN LOW POSITION AND LOCKED, RAILS UP X2, CALL LIGHT WITHIN REACH. WILL ENDORSE TO MONEY MANAGER NURSE.
--- NOTE | 2020-03-09 19:30 | NUR ---
MS RN OPENING NOTE RECEIVED PATIENT IN BED. A/OX3. ON OXYGEN 3L/MIN VIA NASAL CANNULA. RESPIRATIONS ARE EVEN AND UNLABORED. NO S/S SOB NOTED. NO C/O PAIN AT THIS TIME. IN NO APPARENT DISTRESS. IV ACCESS IN AMAURI PICC LINE RUNNING NSZ@60ML/HR. CLINT MIDLINE PATENT AND SALINE LOCKED. HEARD CATHETER IS PRESENT, DRAINING TO GRAVITY, URINE IS ORANGE WITH SEDIMENTS. BED IS LOW AND LOCKED, HOB ELEVATED IN SEMI FOWLERS, SIDE RAILS UP X2. CALL LIGHT WITHIN REACH. WILL CONTINUE TO MONITOR.
--- NOTE | 2020-03-09 19:49 | NUR ---
SPOKE TO PATIENT ABOUT BREATHING TX AND GOING ON BIPAP AT NIGHT. PT STATED NO TREATMENTS UNTIL TOMORROW AND DOES NOT WANT TO BE ON THE BIPAP. RN WAS IN THE ROOM AND WE EXPLAINED THE BENEFITS BUT PATIENT WAS STILL REFUSING. NO SOB NOTED AT THIS TIME. PT IS ON [facility]. Addendum: 03/09/20 at 1950 by SABIHA BOSCH RT Amended: Links added.
--- NOTE | 2020-03-09 19:52 | NUR ---
MS RN NOTE AT BEDSIDE WITH RT. PATIENT REFUSED BREATHING TREATMENT AND DID NOT WANT TO BE PLACED ON BIPAP TONIGHT. WANTS THE BREATHING TREATMENTS TOMORROW. EXPLAINED RISK AND BENEFITS PATENT CONTINUED TO REFUSE. WILL CONTINUE TO MONITOR.
--- NOTE | 2020-03-09 20:59 | NUR ---
MS RN NOTE ADMINISTERED PRN NORCO 10/325 FOR PAIN 10/10 FOR BACK PAIN, HEAD ACHE AND ABDOMINAL PAIN. WILL CONTINUE TO MONITOR.
[2020-03-10] MEDS: BLOOD SUGAR DIAGNOSTIC 1 EACH STRIP IN SCH ×4 (00:11→17:02)
[2020-03-10] MEDS: INSULIN REGULAR, HUMAN 100 UNIT/ML 3 ML VIAL SQ PRN ×3 (00:18→17:10)
[2020-03-10] MEDS: ALBUTEROL HALF STRENGTH 1.25 MG/3 ML VIAL.NEB NEB SCH ×6 (02:52→22:35)
[2020-03-10] MEDS: IPRATROPIUM NEB FS 0.5 MG/2.5 ML AMPUL.NEB NEB SCH ×6 (02:52→22:35)
[2020-03-10] MEDS: HYDROCODONE/APAP 10/325MG TABLET PO PRN ×3 (03:19→22:35)
--- NOTE | 2020-03-10 03:20 | NUR ---
MS RN NOTE ADMINISTERD PRN NORCO 10/325 FOR PAIN 8/10 FOR HEADACHE AND ABDOMINAL PAIN. NEELIMA CONTINUE TO MONITOR.
--- NOTE | 2020-03-10 06:52 | NUR ---
MS RN CLOSING NOTE PATIENT IN BED. A/OX3. REMAINS ON OXYGEN 3L/MIN VIA NASAL CANNULA. RESPIRATIONS ARE EVEN AND UNLABORED. NO SOB NOTED. PAIN MANAGED WITH NORCO. NO DISTRESS NOTED. IV ACCESS MAINTAINED IN AMAURI PICC LINE RUNNING NS@60ML/HR. CLINT MIDLINE PATENT AND SALINE LOCKED. HEARD CATHETER IS MAINTAINED, DRAINING TO GRAVITY, URINE IS ORANGE WITH SEDIMENTS OUTPUT 600. BED REMAINS LOW AND LOCKED, HOB ELEVATED IN SEMI FOWLERS, SIDE RAILS UP X2. CALL LIGHT WITHIN REACH. WILL ENDORSE TO NEXT SHIFT
--- NOTE | 2020-03-10 07:20 | NUR ---
MS RN OPENING NOTES RECEIVED PT IN BED, AWAKE, A/O X2-3, ON SUPPLEMENTARY OXYGEN AT 3LPM, WITH NO ACUTE RESPIRATORY DISTRESS NOTED. PT DENIES ANY PAIN OR DISCOMFORT AT THIS TIME. PT CONCERNED ABOUT DUE MEDS AT THE MOMENT, RN TO FOLLOW UP. PER [facility] SHIFT NURSE, PT CHANGED HER MIND, OKAY TO BE DISCHARGE TO SNF INSTEAD OF HOME WITH HH; RN TO FOLLOW UP WITH HOSPITALIST. ALSO, PER NIGHT RN, PT REFUSED BIPAP AT NIGHT. IVF NS AT 60ML/HR TO AMAURI PICC, INTACT AND INFUSING WELL. AND PIV CLINT MIDLINE, FLUSHED WITH NS, INTACT AND OPERATIONAL. FC IN PLACE NOTED. PT KEPT COMFORTABLE. CALL LIGHT KEPT WITHIN REACH. PT'S BED IN LOWEST, LOCKED POSITION WITH SR X3. WILL CONTINUE PLAN OF CARE.
--- NOTE | 2020-03-10 07:27 | NUR ---
PT REFUSED BREATHING TX. NO SOB NOTED
[2020-03-10 08:00] VITALS: BP 145/82
[2020-03-10] MEDS: QUETIAPINE FUMARATE 100 MG TABLET PO SCH ×2 (08:23→16:55)
[2020-03-10] MEDS: methylPREDNISolone SOD SUCC 125 MG/2ML VIAL IV SCH ×2 (08:23→16:55)
[2020-03-10] MEDS: Z GUARD REMEDY 2 OZ OINT TP SCH (08:39)
[2020-03-10] MEDS: IV NS 0.9% 1,000 ML IV PRN (13:30)
--- NOTE | 2020-03-10 15:40 | NUR ---
PT REFUSED BREATHING TX. NO SOB NOTED. RN AWARE
[2020-03-10 16:00] VITALS: BP 158/80
--- NOTE | 2020-03-10 17:19 | NUR ---
MS RN NOTES PT'S CLINT MIDLINE PULLED OUT. RN NOTED DRESSING WAS HALF WAY OFF AND THE CATHETER WELL. PT AWARE WELL. PIV REMOVED AND APPLIED DRY DRESSING. AMAURI TRIPLE LUMEN PICC INTACT STILL INTACT THIS TIME. WILL CONTINUE TO MONITOR.
--- NOTE | 2020-03-10 18:31 | NUR ---
MS RN CLOSING NOTES PT REMAINS IN BED, AWAKE, A/O X2-3, ON SUPPLEMENTARY OXYGEN AT 3LPM, WITH NO ACUTE RESPIRATORY DISTRESS NOTED. PT DENIES ANY PAIN OR DISCOMFORT AT THIS TIME. IVF NS AT 60ML/HR TO AMAURI PICC, INTACT AND INFUSING WELL. FC IN PLACE NOTED. PT KEPT COMFORTABLE. ALL NEEDS AND CARE ATTENDED AND PROVIDED. CALL LIGHT KEPT WITHIN REACH. PT'S BED IN LOWEST, LOCKED POSITION WITH SR X3. WILL ENDORSE TO INCOMING NIGHT NURSE FOR STEVEN.
--- NOTE | 2020-03-10 19:30 | NUR ---
MS RN OPENING NOTES PATIENT SLEEPING IN BED, EASY TO AWAKEN. A/OX2-3. ON 3L NC. NO S/S OF ACUTE RESPIRATORY DISTRESS; BREATHING IS EVEN AND UNLABORED. NO C/O PAIN AT THIS TIME. PICC LINE ON RIGHT UPPER ARM PRESENT, INTACT & PATENT WITH NS RUNNING AT 60 ML/HR. HEARD CATH PRESENT, DRAINING WELL, 50 ML OF CLEAR YELLOW URINE PRESENT IN BAG. SAFETY MEASURES IN PLACE AND PATIENT'S NEEDS MET. BED LOCKED, ALARM ON, SIDE RAILS X2, CALL LIGHT WITHIN REACH. WILL CONTINUE TO MONITOR.
[2020-03-10 20:00] VITALS: BP 153/88
[2020-03-11] MEDS: BLOOD SUGAR DIAGNOSTIC 1 EACH STRIP IN SCH ×4 (00:11→17:09)
[2020-03-11] MEDS: INSULIN REGULAR, HUMAN 100 UNIT/ML 3 ML VIAL SQ PRN ×4 (00:12→17:10)
[2020-03-11] MEDS: IPRATROPIUM NEB FS 0.5 MG/2.5 ML AMPUL.NEB NEB SCH ×5 (03:17→23:30)
[2020-03-11] MEDS: ALBUTEROL HALF STRENGTH 1.25 MG/3 ML VIAL.NEB NEB SCH ×5 (03:17→23:30)
[2020-03-11] MEDS: HYDROCODONE/APAP 10/325MG TABLET PO PRN (05:38)
[2020-03-11] MEDS: MAGNESIUM HYDROXIDE 30 ML UDC PO PRN ×2 (05:52→17:37)
--- NOTE | 2020-03-11 07:00 | NUR ---
MS RN CLOSING NOTES PATIENT AWAKE IN BED. A/OX2-3. ON 3L NC. NO S/S OF ACUTE RESPIRATORY DISTRESS; BREATHING IS EVEN AND UNLABORED. NO C/O PAIN AT THIS TIME. PICC LINE ON RIGHT UPPER ARM PRESENT, INTACT & PATENT WITH NS RUNNING AT 60 ML/HR. SAFETY MEASURES IN PLACE AND PATIENT'S NEEDS MET. BED LOCKED, ALARM ON, SIDE RAILS X2, CALL LIGHT WITHIN REACH. WILL ENDORSE TO DAY SHIFT NURSE PLAN OF CARE.
--- NOTE | 2020-03-11 07:15 | NUR ---
MS RN OPENING NOTES RECEIVED PT IN BED, AWAKE, A/O X2-3, ON SUPPLEMENTARY OXYGEN AT 3LPM, WITH NO ACUTE RESPIRATORY DISTRESS NOTED. PT DENIES ANY PAIN OR DISCOMFORT AT THIS TIME. PT CONCERNED ABOUT WHAT SN[facility] GOING FOR DISCHARGE. IVF NS AT 60ML/HR TO AMAURI PICC, INTACT AND INFUSING WELL.FC IN PLACE NOTED. PT KEPT COMFORTABLE. CALL LIGHT KEPT WITHIN REACH. PT'S BED IN LOWEST, LOCKED POSITION WITH SR X3. WILL CONTINUE PLAN OF CARE.
[2020-03-11 08:00] VITALS: BP 148/73
--- NOTE | 2020-03-11 08:00 | NUR ---
MS RN NOTES PT SCHEDULED FOR DAILY ABG. PER RT/CARY COE STATED NO NEED TO DRAW ABG AT TODAY. WILL CONTINUE TO MONITOR PT.
[2020-03-11] MEDS: ACETAMINOPHEN 325 MG TABLET PO PRN (09:03)
[2020-03-11] MEDS: QUETIAPINE FUMARATE 100 MG TABLET PO SCH ×2 (09:03→16:56)
[2020-03-11] MEDS: methylPREDNISolone SOD SUCC 125 MG/2ML VIAL IV SCH (09:04)
[2020-03-11] MEDS: Z GUARD REMEDY 2 OZ OINT TP SCH (09:04)
[2020-03-11 16:00] VITALS: BP 116/84
[2020-03-11] MEDS: hydrALAZINE HCL IV 20 MG VIAL IV PRN (17:19)
--- NOTE | 2020-03-11 17:20 | NUR ---
MS RN NOTES IV HYDRALAZINE PRN GIVEN VIA PICC PER BP OF 1166/84. WILL CONTINUE TO MONITOR.
--- NOTE | 2020-03-11 17:40 | NUR ---
MS RN NOTES PER PT HASN'T HAD BOWEL MOVEMENT. PT REQUESTED MOM , ADMINISTERED ORDERED AND RN OFFERED PRUNE JUICE. WILL CONTINUE TO MONITOR.
--- NOTE | 2020-03-11 18:32 | NUR ---
MS RN CLOSING NOTES PT REMAINS IN BED, AWAKE, A/O X2-3, ON SUPPLEMENTARY OXYGEN AT 3LPM, WITH NO ACUTE RESPIRATORY DISTRESS NOTED. PT DENIES ANY PAIN OR DISCOMFORT AT THIS TIME. AMAURI PICC TRIPLE LUMEN, FLUSHED WITH NS, INTACT AND OPERATIONAL. FC IN PLACE NOTED, 1100ML OUTPUT. PT KEPT COMFORTABLE. ALL NEEDS AND CARE ATTENDED AND PROVIDED. CALL LIGHT KEPT WITHIN REACH. PT'S BED IN LOWEST, LOCKED POSITION WITH SR X3. WILL ENDORSE TO INCOMING NIGHT NURSE FOR STEVEN.
[2020-03-11 18:53] VITALS: BP 110/69
--- NOTE | 2020-03-11 19:15 | NUR ---
RN OPENING NOTES Received patient A/Ox3, awake on bed on O2 inhalation via NC @ 3LPM, saturating well, no SOB/respiratory distress noted at this time. With FC indwelling well, with clear yellow urine output noted. No complaints of pain/distress noted at this time. Keep on bed clean, dry and comfortable. On fall and aspiration precautions. Will continue to monitor accordingly.
[2020-03-11 20:00] VITALS: BP 142/89
[2020-03-12] MEDS: INSULIN REGULAR, HUMAN 100 UNIT/ML 3 ML VIAL SQ PRN ×3 (00:54→17:05)
[2020-03-12] MEDS: ACETAMINOPHEN 325 MG TABLET PO PRN ×3 (02:06→15:10)
[2020-03-12] MEDS: BLOOD SUGAR DIAGNOSTIC 1 EACH STRIP IN SCH ×4 (02:06→17:04)
[2020-03-12] MEDS: HYDROCODONE/APAP 10/325MG TABLET PO PRN ×3 (03:04→18:05)
[2020-03-12] MEDS: IPRATROPIUM NEB FS 0.5 MG/2.5 ML AMPUL.NEB NEB SCH ×6 (03:30→22:32)
[2020-03-12] MEDS: ALBUTEROL HALF STRENGTH 1.25 MG/3 ML VIAL.NEB NEB SCH ×6 (03:30→22:32)
--- NOTE | 2020-03-12 07:14 | NUR ---
RN CLOSING NOTES Patient asleep, easily awaken. On O2 inhalation via NC @ 3LPM, saturating well, no SOB/respiratory distress noted at this time. Patient denies any discomfort or pain. Able to reposition self independently. All nursing needs attended. Due meds given as ordered, no ASE noted. No complaints of abdominal pain or N/V noted, afebrile the whole shift. Kept on bed clean, dry and comfortable. On fall and aspiration precautions. Endorsed.
--- NOTE | 2020-03-12 07:15 | NUR ---
MS RN OPENING NOTES RECEIVED PT IN BED, AWAKE, A/O X2-3, ON SUPPLEMENTARY OXYGEN AT 3LPM, WITH NO ACUTE RESPIRATORY DISTRESS NOTED. PT DENIES ANY PAIN OR DISCOMFORT AT THIS TIME. PT CONCERNED ABOUT WHAT SNF GOING FOR DISCHARGE. AMAURI PICC, FLUSHED WITH NS, INTACT AND OPERATIONAL. FC IN PLACE NOTED. PT KEPT COMFORTABLE. CALL LIGHT KEPT WITHIN REACH. PT'S BED IN LOWEST, LOCKED POSITION WITH SR X3. WILL CONTINUE PLAN OF CARE.
[2020-03-12 08:00] VITALS: BP 123/53
[2020-03-12] MEDS: Z GUARD REMEDY 2 OZ OINT TP SCH (08:04)
[2020-03-12] MEDS: methylPREDNISolone SOD SUCC 125 MG/2ML VIAL IV SCH (08:04)
[2020-03-12] MEDS: QUETIAPINE FUMARATE 100 MG TABLET PO SCH ×2 (08:04→16:58)
--- NOTE | 2020-03-12 09:06 | NUR ---
MS RN NOTES REMOVED FC, EMPTIED 100ML. WILL CONTINUE TO MONITOR.
--- NOTE | 2020-03-12 09:51 | NUR ---
ATTEMPTED MULTIPLE TIMES FOR PORTABLE CHEST XRAY, PATIENT WAS NOT READY, NEEDED TO BE CLEANED. RN WILL CALL RADIOLOGY WHEN READY
[2020-03-12 16:00] VITALS: BP 154/94
--- NOTE | 2020-03-12 18:46 | NUR ---
MS RN CLOSING NOTES PT REMAINS IN BED, AWAKE, A/O X2-3, ON SUPPLEMENTARY OXYGEN AT 3LPM, WITH NO ACUTE RESPIRATORY DISTRESS NOTED. PT DENIES ANY PAIN OR DISCOMFORT AT THIS TIME. AMAURI PICC, FLUSHED WITH NS, INTACT AND OPERATIONAL. FC IN PLACE NOTED. PT KEPT COMFORTABLE. ALL NEEDS AND CARE ATTENDED. CALL LIGHT KEPT WITHIN REACH. PT'S BED IN LOWEST, LOCKED POSITION WITH SR X3. WILL ENDORSE TO INCOMING NIGHT NURSE FOR STEVEN.
--- NOTE | 2020-03-12 19:33 | NUR ---
MS RN OPENING NOTES PATIENT SLEEPING IN BED, EASY TO AWAKEN. A/OX3. ON 3L NC. NO S/S OF ACUTE RESPIRATORY DISTRESS; BREATHING IS EVEN AND UNLABORED. NO C/O PAIN AT THIS TIME. RIGHT UPPER ARM PICC LINE PRESENT, INTACT & PATENT, HEP LOCKED. SAFETY MEASURES IN PLACE AND PATIENT'S NEEDS MET. BED LOCKED, ALARM ON, SIDE RAILS X2, CALL LIGHT WITHIN REACH. WILL CONTINUE TO MONITOR.
--- NOTE | 2020-03-12 19:45 | NUR ---
PT REFUSED BREATHING TX. NO SOB OR RESPIRATORY DISTRESS NOTED. RN NOTIFIED
[2020-03-12 20:00] VITALS: BP 129/77
--- NOTE | 2020-03-12 20:01 | NUR ---
TALKED TO PT ABOUT NOC BIPAP AND SHE REFUSED. ALERT AND AWAKE. NO SOB OR RESP DISTRESS NOTED. RN DONELL AWARE. WILL CONTINUE TO MONITOR T/O SHIFT.
[2020-03-13] MEDS: BLOOD SUGAR DIAGNOSTIC 1 EACH STRIP IN SCH ×4 (00:28→17:07)
[2020-03-13] MEDS: INSULIN REGULAR, HUMAN 100 UNIT/ML 3 ML VIAL SQ PRN ×3 (01:09→17:08)
[2020-03-13] MEDS: ALBUTEROL HALF STRENGTH 1.25 MG/3 ML VIAL.NEB NEB SCH ×6 (02:58→23:30)
[2020-03-13] MEDS: IPRATROPIUM NEB FS 0.5 MG/2.5 ML AMPUL.NEB NEB SCH ×6 (02:58→23:30)
[2020-03-13] MEDS: HYDROCODONE/APAP 10/325MG TABLET PO PRN ×2 (03:07→09:08)
[2020-03-13 06:21] LABS: BASOPHILS % (AUTO) 0.1 % (0.0-2.0); EOSINOPHILS % (AUTO) 0.1 % (0.0-6.0); HEMATOCRIT 45 % (33-45); HEMOGLOBIN 13.8 g/dL (11.5-14.8); LYMPHOCYTES # (AUTO) 2.2 /CMM (0.8-4.8); LYMPHOCYTES % (AUTO) 21.6 % (20.0-44.0); MEAN CORPUSCULAR HGB CONC 31 g/dl (31.0-36.0); MEAN CORPUSCULAR VOLUME 68 fL (82-100); MONOCYTES # (AUTO) 0.8 /CMM (0.1-1.30); MONOCYTES % (AUTO) 7.7 % (2.0-12.0); NEUTROPHILS # (AUTO) 7.3 /CMM (1.8-8.9); NEUTROPHILS % (AUTO) 70.5 % (43.0-81.0); PLATELET COUNT (AUTO) 81 /CMM (150-450); RED BLOOD CELL COUNT(AUTO) 6.56 MIL/uL (4.0-5.2); WHITE BLOOD COUNT (AUTO) 10.3 K/uL (4.3-11.0)
[2020-03-13 06:38] LABS: CALCIUM, SERUM 7.5 mg/dL (8.5-10.1); CREATININE 0.7 mg/dL (0.6-1.3); POTASSIUM 3.9 mmol/L (3.5-5.1)
--- NOTE | 2020-03-13 07:25 | NUR ---
MS RN CLOSING NOTES PATIENT AWAKE IN BED. A/OX3. ON 3L NC. NO S/S OF ACUTE RESPIRATORY DISTRESS OR C/O PAIN AT THIS TIME. RIGHT UPPER ARM PICC LINE PRESENT, INTACT & PATENT, HEP LOCKED. SAFETY MEASURES IN PLACE AND PATIENT'S NEEDS MET. BED LOCKED, ALARM ON, SIDE RAILS X2, CALL LIGHT WITHIN REACH. WILL ENDORSE TO DAY SHIFT NURSE PLAN OF CARE.
[2020-03-13] MEDS ORDERED: methylPREDNISolone DOSPAK(4MG) 1 PACK TAB.DS.PK PO ONE (07:30)
[2020-03-13] MEDS ORDERED: methylPREDNISolone (4MG) 4 MG TABLET (DAY #1 ACB) PO ONE (07:30)
[2020-03-13 08:00] VITALS: BP 153/88
--- NOTE | 2020-03-13 08:00 | NUR ---
RN NOTES PATIENT IN BED RESTING NO SOB OR ACUTE DISTRESS NOTED. PATIENT ALERT, ORIENTED X3. PICC LINE INTACT PATENT. BED IN LOW LOCKED POSITION. CALL LIGHT WITHIN REACH. WILL CONTINUE TO MONITOR.
[2020-03-13] MEDS: QUETIAPINE FUMARATE 100 MG TABLET PO SCH ×2 (09:04→17:06)
[2020-03-13] MEDS: Z GUARD REMEDY 2 OZ OINT TP SCH (09:04)
[2020-03-13 09:22] LABS: LYMPHOCYTES % (MANUAL) 21 % (16-48); MONOCYTES % (MANUAL) 9 % (0-11.0); NEUTROPHILS % (MANUAL) 70 (42-76)
[2020-03-13] MEDS ORDERED: methylPREDNISolone (4MG) 4 MG TABLET (DAY #1, PC LUNCH) PO ONE (12:30)
[2020-03-13 16:00] VITALS: BP 114/67
[2020-03-13] MEDS ORDERED: methylPREDNISolone (4MG) 4 MG TABLET (DAY #1 PC DINNER) PO ONE (17:30)
--- NOTE | 2020-03-13 18:48 | NUR ---
MS RN NOTES PATIENT IN BED RESTING NO SOB OR ACUTE DISTRESS NOTED. ALL DUE MEDICATIONS ADMINISTERED. ALL NEEDS MET. NO ACUTE CHANGES NOTED DURING AM SHIFT. WILL ENDORSE CARE TO PM SHIFT.
[2020-03-13 20:04] VITALS: BP 131/85
--- NOTE | 2020-03-13 20:30 | NUR ---
RN PM OPENING NOTE RECIEVED WRITTEN REPORT. PATIENT SEEN. PATIENT IN BED RESTING NO SOB OR ACUTE DISTRESS NOTED. PATIET HEPLOCKED BED DOWN LOCKED SRX3 WILL CONT TO MONITOR.
[2020-03-13] MEDS ORDERED: methylPREDNISolone (4MG) 4 MG TABLET (DAY1,HS) PO ONE (22:00)
--- NOTE | 2020-03-13 23:13 | NUR ---
[facility] called spoke with mahin from case management department states they are continuing to work on snf placement and will cont work tomorrow no placement found for today. phone [phone]
[2020-03-14] MEDS: IPRATROPIUM NEB FS 0.5 MG/2.5 ML AMPUL.NEB NEB SCH ×6 (00:36→19:30)
[2020-03-14] MEDS: ALBUTEROL HALF STRENGTH 1.25 MG/3 ML VIAL.NEB NEB SCH ×6 (00:37→19:30)
[2020-03-14] MEDS: BLOOD SUGAR DIAGNOSTIC 1 EACH STRIP IN SCH ×5 (01:02→21:49)
[2020-03-14] MEDS: INSULIN REGULAR, HUMAN 100 UNIT/ML 3 ML VIAL SQ PRN ×4 (01:03→21:47)
--- NOTE | 2020-03-14 07:00 | NUR ---
RN PM CLOSING NOTE PATIENT SEEN. PATIENT IN BED RESTING NO SOB OR ACUTE DISTRESS NOTED. PATIET HEPLOCKED BED DOWN LOCKED SRX3 WILL CONT TO MONITOR. BS WNL THIS AM.
[2020-03-14] MEDS ORDERED: methylPREDNISolone (4MG) 4 MG TABLET (DAY#2 ACB) PO ONE (07:30)
--- NOTE | 2020-03-14 07:45 | NUR ---
MS/RN NOTE THE PATIENT IS RECEIVED IN BED. ALERT AND ORIENTED X3. DENIES PAIN. DENIES SOB. RESPIRATION REGULAR AND UNLABORED. RECEIVING OXYGEN AT 3L/MIN VIA NASAL CANNULA. AMAURI PICC LINE PATENT AND SALINE LOCKED. BED LOW AND LOCKED. WILL CONTINUE TO MONITOR.
[2020-03-14 08:00] VITALS: BP 141/96
[2020-03-14] MEDS: HYDROCODONE/APAP 10/325MG TABLET PO PRN ×3 (08:09→19:56)
[2020-03-14] MEDS: QUETIAPINE FUMARATE 100 MG TABLET PO SCH ×2 (08:09→17:49)
[2020-03-14] MEDS: Z GUARD REMEDY 2 OZ OINT TP SCH (08:20)
[2020-03-14] MEDS ORDERED: methylPREDNISolone (4MG) 4 MG TABLET (DAY#2,PC LUNCH) PO ONE (12:30)
[2020-03-14 16:00] VITALS: BP 138/85
[2020-03-14] MEDS ORDERED: methylPREDNISolone (4MG) 4 MG TABLET (DAY#2, PC DINNER) PO ONE (17:30)
--- NOTE | 2020-03-14 18:26 | NUR ---
MS/RN NOTE THE PATIENT A/O X3. RECEIVING OXYGEN AT 3L/MIN VIA NASAL CANNULA AND SATURATION IS AT 95%. DENIES SOB. RESPIRATION REGULAR AND UNLABORED. AMAURI PICC LINE PATENT AND SALINE LOCKED. BED LOW AND LOCKED. SIDE RAILS UP X3. CALL LIGHT WITHIN REACH. WILL ENDORSE TO LEAD BASED PAINT TECHNICIAN.
--- NOTE | 2020-03-14 19:15 | NUR ---
MS/RN PM NOTE REPORT RECIEVED FROM EZE BREAUX. THE PATIENT A/O X3. PATIENT ON RA DENIES SOB. DENIES SOB. RESPIRATION REGULAR AND UNLABORED. AMAURI PICC LINE PATENT AND SALINE LOCKED. BED LOW AND LOCKED. SIDE RAILS UP X3. CALL LIGHT WITHIN REACH. WILL CONT TO MONITOR.
[2020-03-14 20:06] VITALS: BP 151/74
[2020-03-14] MEDS ORDERED: methylPREDNISolone (4MG) 4 MG TABLET (DAY#2, HS) PO ONE (21:00)
--- NOTE | 2020-03-14 23:12 | NUR ---
patient requesting sleep med; contacted dr. jackson new order for restoril recieved 7.5mg prn hs.
[2020-03-14] MEDS ORDERED: TEMAZEPAM 7.5 MG CAPSULE PO PRN (23:15)
[2020-03-15] MEDS: HYDROCODONE/APAP 10/325MG TABLET PO PRN ×3 (01:14→18:22)
[2020-03-15] MEDS: IPRATROPIUM NEB FS 0.5 MG/2.5 ML AMPUL.NEB NEB SCH ×5 (03:30→19:30)
[2020-03-15] MEDS: ALBUTEROL HALF STRENGTH 1.25 MG/3 ML VIAL.NEB NEB SCH ×5 (03:30→19:30)
[2020-03-15] MEDS: BLOOD SUGAR DIAGNOSTIC 1 EACH STRIP IN SCH ×3 (07:05→18:16)
[2020-03-15] MEDS ORDERED: methylPREDNISolone (4MG) 4 MG TABLET (DAY#3,ACB) PO ONE (07:30)
[2020-03-15 08:00] VITALS: BP 139/68
--- NOTE | 2020-03-15 08:00 | NUR ---
MS/RN NOTE THE PATIENT IS RECEIVED IN BED. ALERT AND ORIENTED X3. DENIES PAIN. DENIES SOB. RESPIRATION REGULAR AND UNLABORED ON ROOM AIR. AMAURI PICC LINE PATENT AND SALINE LOCKED. BED LOW AND LOCKED. WILL CONTINUE TO MONITOR.
[2020-03-15] MEDS: QUETIAPINE FUMARATE 100 MG TABLET PO SCH ×2 (08:45→18:19)
[2020-03-15] MEDS: Z GUARD REMEDY 2 OZ OINT TP SCH (08:46)
[2020-03-15] MEDS ORDERED: methylPREDNISolone (4MG) 4 MG TABLET (DAY#3,PC LUNCH) PO ONE (12:30)
[2020-03-15 16:00] VITALS: BP 137/70
[2020-03-15] MEDS ORDERED: methylPREDNISolone (4MG) 4 MG TABLET (DAY#3,PC DINNER) PO ONE (17:30)
[2020-03-15] MEDS: INSULIN REGULAR, HUMAN 100 UNIT/ML 3 ML VIAL SQ PRN (18:17)
--- NOTE | 2020-03-15 19:30 | NUR ---
MS RN OPENING NOTE RECEIVED PATIENT IN BED. A/OX3. TOLERATING ROOM AIR AT THIS TIME. RESPIRATIONS ARE EVEN AND UNLABORED. NO S/S SOB NOTED. NO C/O PAIN AT THIS TIME. IN NO APPARENT DISTRESS. IV ACCESS IN AMAURI PICC LINE PATENT AND SALINE LOCKED. BED I SLOW AND LOCKED, HOB ELEVATED IN SEMI FOWLERS, SIDE RIALS UP X2. CALL LIGHT WITHIN REACH. WILL CONTINUE TO MONITOR.
--- NOTE | 2020-03-15 19:52 | NUR ---
PT RESTING IN BED WITH NO S/S OF DISTRESS.EXCITED TO BE DISCHARGED TO [facility].CALLED REPORT TO NAMITA SMITH OF [facility].AMBULANCE CHILD NURSE WILL BE AT 1999.ENDORSED TO NAMITA DUMONT TO REMOVE PT'S AMAURI PICC LINE AND TAKE PHOTO OF SACRAL AREA.
[2020-03-15 20:00] VITALS: BP_SYST 138; BP_DIAS 70; BP_DIAS 77
--- NOTE | 2020-03-15 20:46 | NUR ---
MS INSURANCE CLAIMS CLERK NOTE PATIENT TRANSFERRED TO [facility] BY 2 SHOWCASE TRIMMER. TRANSPORTING TO [facility]. MADE AWARE. DAY RN GAVE REPORT TO [facility]. PATIENT IS IN STABLE CONDITION. A/O X3. TOLERATING ROOM AIR. RESPIRATIONS EVEN AND UNLABORED. VS 147/68 HR 83. T 98.1 O2 SAT 95% RR 18. EXIT CARE GIVEN. BELONGINGS LIST FILLED OUT AND GIVEN TO PATIENT. SECURED BELONGINGS GIVEN. IV ACCESS REMOVED. ID BAND REMOVED. PICTURE TAKEN AND PLACED IN CHART.
[2020-03-15] MEDS ORDERED: methylPREDNISolone (4MG) 4 MG TABLET (DAY#3, HS) PO ONE (22:00)
[2020-03-16] MEDS ORDERED: methylPREDNISolone (4MG) 4 MG TABLET (DAY #4, ACB) PO ONE (07:30)
[2020-03-16] MEDS ORDERED: methylPREDNISolone (4MG) 4 MG TABLET (DAY #4, PC LUNCH) PO ONE (12:30)
[2020-03-16] MEDS ORDERED: methylPREDNISolone (4MG) 4 MG TABLET (DAY#4 HS) PO ONE (22:00)
[2020-03-17] MEDS ORDERED: methylPREDNISolone (4MG) 4 MG TABLET (DAY#5, ACB) PO ONE (07:30)
[2020-03-17] MEDS ORDERED: methylPREDNISolone (4MG) 4 MG TABLET (DAY#5,HS) PO ONE (22:00)
[2020-03-18] MEDS ORDERED: methylPREDNISolone (4MG) 4 MG TABLET (DAY#6,ACB) PO ONE (07:30)
[2020-05-12] MEDS ORDERED: METH4TAB3 PO (12:21)
[2020-05-12] MEDS ORDERED: FLUO20CA42 PO (12:21)
[2020-05-12] MEDS ORDERED: Folic Acid PO (12:21)
[2020-05-12] MEDS ORDERED: ASPI-1420 PO (12:21)
[2020-05-12] MEDS ORDERED: DOCU250C14 PO (12:21)
[2020-05-12] MEDS ORDERED: CEPH500C2 PO (12:21)
[2020-05-12] MEDS ORDERED: ENOX40DI SQ (12:21)
== END 2020-03-15 20:45 | DRG 207 ==
LOC: ER 20:33 → TELE 03-02 01:23 → MED 03-03 08:26 → ICU 03-03 10:50 → MED 03-09 12:43
PROVIDERS: ADMIT Internal Medicine; ATTEND Nurse Practitioner Acute Care
PROC: 05HY33Z Insertion of Infusion Device into Upper Vein, Percutaneous Approach (ICD-10-PCS; 2020-03-02)
PROC: 5A1955Z Respiratory Ventilation, Greater than 96 Consecutive Hours (ICD-10-PCS; principal; 2020-03-03)
PROC: B548ZZA Ultrasonography of Superior Vena Cava, Guidance (ICD-10-PCS; principal; 2020-03-03)
PROC: 5A09357 Assistance with Respiratory Ventilation, Less than 24 Consecutive Hours, Continuous Positive Airway Pressure (ICD-10-PCS; principal; 2020-03-03)
PROC: 02HV33Z Insertion of Infusion Device into Superior Vena Cava, Percutaneous Approach (ICD-10-PCS; principal; 2020-03-03)
PROC: 0BH17EZ Insertion of Endotracheal Airway into Trachea, Via Natural or Artificial Opening (ICD-10-PCS; principal; 2020-03-03)
DX: J96.21 Acute and chronic respiratory failure with hypoxia (principal); G93.41 Metabolic encephalopathy; N17.0 Acute kidney failure with tubular necrosis; I50.32 Chronic diastolic (congestive) heart failure; R57.9 Shock, unspecified; Z68.41 Body mass index [BMI] 40.0-44.9, adult; E66.2 Morbid (severe) obesity with alveolar hypoventilation; F20.0 Paranoid schizophrenia; J98.11 Atelectasis; J96.22 Acute and chronic respiratory failure with hypercapnia; R19.00 Intra-abdominal and pelvic swelling, mass and lump, unspecified site; E11.9 Type 2 diabetes mellitus without complications; I11.0 Hypertensive heart disease with heart failure; J44.9 Chronic obstructive pulmonary disease, unspecified; Z79.84 Long term (current) use of oral hypoglycemic drugs; Z79.899 Other long term (current) drug therapy; E78.5 Hyperlipidemia, unspecified; E87.6 Hypokalemia; F17.200 Nicotine dependence, unspecified, uncomplicated; Z79.51 Long term (current) use of inhaled steroids; Z91.19 Patient's noncompliance with other medical treatment and regimen; L89.159 Pressure ulcer of sacral region, unspecified stage; D72.829 Elevated white blood cell count, unspecified; D69.6 Thrombocytopenia, unspecified; F32.9 Major depressive disorder, single episode, unspecified; I70.0 Atherosclerosis of aorta; K42.9 Umbilical hernia without obstruction or gangrene
CPT/HCPCS: 31720; 36410; 36415; 36569; 36600; 70450-TC; 71045-TC; 80048-TC; 80053-TC; 80061-TC; 80076-TC; 81000-TC; 82550-TC; 82570-TC; 82803-TC; 82962-TC; 83690-TC; 83735-TC; 83880; 84100-TC; 84155-TC; 84300-TC; 84439-TC; 84443-TC; 84484-TC; 85025-TC; 87081-TC; 92611-TC; 93307-TC; 94002-TC; 94003-TC; 94799-TC; 97110-TC; 97116-TC; 97530-TC; C1751; G0378; J0330; J0360; J1650; J1815; J1940; J2270; J2405; J2930; J3475; J3490; J7030; J7040; J7050; J7509

== ENCOUNTER 2020-05-03 11:06 | Inpatient (IN) | payer OTHER ==
[~2020-05-03] VITALS: Ht 170.2 cm; Wt 115.2 kg
--- NOTE | 2020-05-03 11:14 | NUR ---
PT BIBRA FROM HOME TO ER BED 02. PER EMS REPORT, PT WAS FOUND BY POSSIBLY "OVERDOSING ON ATIVAN." PT UPON ARRIVAL IS AROUSABLE W/ VERBAL STIMULI. GOWNED AND PLACED ON MONITOR. AWAITING MD BLAIR.
--- NOTE | 2020-05-03 11:18 | NUR ---
DR JURADO AT BEDSIDE FOR EVAL.
[2020-05-03] MEDS ORDERED: IV NS 0.9% 1,000 ML BAG IV ONE (11:30)
--- NOTE | 2020-05-03 11:45 | NUR ---
IV LINE STARTED. BLOOD DRAWN AND SENT TO LAB.
[2020-05-03 11:52] LABS: NEUTROPHILS # (AUTO) 5.4 /CMM (1.8-8.9)
[2020-05-03 11:56] LABS: BASOPHILS % (AUTO) 0.4 % (0.0-2.0); EOSINOPHILS % (AUTO) 1.6 % (0.0-6.0); HEMATOCRIT 44 % (33-45); HEMOGLOBIN 13.3 g/dL (11.5-14.8); LYMPHOCYTES # (AUTO) 3.1 /CMM (0.8-4.8); LYMPHOCYTES % (AUTO) 31.6 % (20.0-44.0); MEAN CORPUSCULAR HGB CONC 30 g/dl (31.0-36.0); MEAN CORPUSCULAR VOLUME 70 fL (82-100); MONOCYTES # (AUTO) 1.1 /CMM (0.1-1.30); NEUTROPHILS % (AUTO) 55.4 % (43.0-81.0); PLATELET COUNT (AUTO) 157 /CMM (150-450); RED BLOOD CELL COUNT(AUTO) 6.31 MIL/uL (4.0-5.2); WHITE BLOOD COUNT (AUTO) 9.7 K/uL (4.3-11.0)
[2020-05-03 11:58] LABS: CALCIUM, SERUM 8.5 mg/dL (8.5-10.1); CARBON DIOXIDE 37 mmol/L (21-32); CHLORIDE 103 mmol/L (98-107); CREATININE 1.1 mg/dL (0.6-1.3); GLUCOSE 147 mg/dL (74-106); POTASSIUM 4.5 mmol/L (3.5-5.1); SODIUM SERUM 141 mmol/L (136-145); UREA NITROGEN, BLOOD 26 mg/dL (7-18)
[2020-05-03 12:04] LABS: ACETAMINOPHEN 3 ug/ml (10-30); ALANINE AMINOTRANSFERASE 31 U/L (12-78); ALBUMIN 2.7 g/dL (3.4-5.0); ALCOHOL, BLOOD < 3 mg/dL (0-0); ALKALINE PHOSPHATASE 58 U/L (46-116); ASPARTATE AMINOTRANSFERASE 21 U/L (15-37); BILIRUBIN,DIRECT 0.4 mg/dL (0.0-0.2); BILIRUBIN,TOTAL 0.9 mg/dL (0.2-1.0); SALICYLATE 0.5 mg/dL (2.8-20.0); TOTAL PROTEIN, SERUM 5.6 g/dL (6.4-8.2)
[2020-05-03 12:04] LABS: APPEARANCE,URINE Clear (CLEAR); BILIRUBIN,URINE SMALL (NEGATIVE); BLOOD, URINE Negative Ery/uL (NEGATIVE); COLOR,URINE Yellow (YELLOW); KETONES,URINE Negative (NEGATIVE); LEUKOCYTE ESTERASE ,URINE Negative (NEGATIVE); NITRITE, URINE Negative (NEGATIVE); PH,URINE 6.5 (5.0-8.0); PROTEIN,URINE Trace mg/dl (NEGATIVE); UGLUCOSE Negative (NEGATIVE)
--- NOTE | 2020-05-03 12:32 | NUR ---
MOSHE PRIEST LEFT CONTACT # [phone]
--- NOTE | 2020-05-03 12:37 | NUR ---
PT TO RADIOLOGY FOR HEAD CT SCAN VIA [facility].
[2020-05-03 12:46] LABS: BACTERIA,URINE Few /HPF (None Seen); SQUAMOUS EPITHELIAL CELL,UR Few /HPF (None Seen)
[2020-05-03] MEDS ORDERED: ASPIRIN 325 MG TABLET PO ONE (13:00)
[2020-05-03] MEDS ORDERED: ZOLP10TA2 PO (13:07)
[2020-05-03] MEDS ORDERED: FLUO20CA42 MT (13:07)
--- NOTE | 2020-05-03 13:09 | NUR ---
EPIC PAGED. ITS SUDHA.
[2020-05-03 13:11] LABS: EOSINOPHILS % (MANUAL) 2 % (0-4); LYMPHOCYTES % (MANUAL) 35 % (16-48); MONOCYTES % (MANUAL) 8 % (0-11.0); NEUTROPHILS % (MANUAL) 55 (42-76)
[2020-05-03] MEDS ORDERED: ASPIRIN 325 MG TABLET ONE (13:25)
--- NOTE | 2020-05-03 14:52 | NUR ---
ROOM [id number]
--- NOTE | 2020-05-03 15:08 | NUR ---
REPORT GIVEN TO YELITZA BREAUX. PT AWAITING TRANSFER TO FLOOR.
--- NOTE | 2020-05-03 15:21 | NUR ---
ALEENA DAUGHTER LEFT CONTACT # [phone]
[2020-05-03 15:40] VITALS: BP 119/73
--- NOTE | 2020-05-03 15:40 | NUR ---
DIRECTOR PLANS NOTES RECEIVED PT FROM E.R. STAFF VIA MANNY, PT IS SLEEPY, AROUSABLE BY NAME THEN GOES BACK TO SLEEP, ON O2 AT 5LPM VIA MASK, O2 SAT OF 95-97%, RESPIRATIONS NORMAL AND NOT LABORED, ASSISTED TO BED, MADE COMFORTABLE, KEPT HOB ELEVATED, VITAL SIGNS TAKEN AND RECORDED, SEEN AND EXAMINED BY DR. POLLARD, AWAITING ADMITTING ORDERS, WILL CONTINUE TO MONITOR PT. PT'S OWN MEDS SENT TO PHARMACY.
[2020-05-03 16:00] VITALS: BP 89/62
--- NOTE | 2020-05-03 16:00 | NUR ---
MORTGAGE PROCESSING MANAGER NOTES PT'S BP 89/62, HR STABLE AT 102, SINUS RHYTHM ON THE TELE MONITOR, DR. POLLARD AWARE.
[2020-05-03 16:54] VITALS: BP 97/57
[2020-05-03] MEDS ORDERED: Z GUARD REMEDY 2 OZ OINT TP PRN (17:00)
[2020-05-03] MEDS ORDERED: ACETAMINOPHEN 650 MG/SUPP.RECT RC PRN (17:00)
[2020-05-03] MEDS ORDERED: DEXTROSE 50%-WATER 50 ML DISP.SYRIN IV PRN (17:00)
[2020-05-03] MEDS ORDERED: ONDANSETRON HCL/PF 4 MG/2 ML VIAL IVP PRN (17:00)
[2020-05-03] MEDS: IV 1/2NS 1000 ML 1,000 ML IV PRN (17:31)
[2020-05-03] MEDS: BLOOD SUGAR DIAGNOSTIC 1 EACH STRIP IN SCH ×2 (17:44→23:54)
--- NOTE | 2020-05-03 17:45 | NUR ---
RN NOTES ACCUCHECK WAS 150. UNABLE TO ADMINISTER INSULIN D/T PATIENT IS NPO.
--- NOTE | 2020-05-03 18:16 | NUR ---
MANAGER OF GLOBAL CLOSE NOTES PATIENT IS AROUSABLE BY NAME. IN BED WITH 5L OF OXYGEN VIA MASK WITH SPO2 95-97%. IV R AC #20G INTACT AND PATENT INFUSING 1/2 NS AT 75 ML/HR. HEARD INTACT. SAFETY MEASURES ARE APPLIED BED IS LOCK AND IN LOW POSITION HOB ELEVATED. WITH SIDE RAILS UP X 2 FOR SAFETY. CALL LIGHT WITHIN REACH. WILL ENDORSE TO THE NEXT SHIFT.
--- NOTE | 2020-05-03 19:23 | NUR ---
METAL FLOW COORDINATOR NOTES PATIENT IN BED, SLEEPY, AROUSABLE. BREATHING EVEN AND UNLABORED ON 5L MASK AT 96%. SHOWS NO SIGNS OF ACUTE RESPIRATORY DISTRESS, NO ACUTE PAIN. TELE MONITOR SR AT 90'S. FC CLEAN DRY AD INTACT, FLOWING YELLOW URINE. IV IN RAC 20G RUNNING @ 1/2 NS AT 75ML/HR. SHOWS NO SIGNS OF INFILTRATION, NO REDNESS. SAFETY PRECAUTIONS IN PLACE. BED IN LOWEST POSITION, LOCKED, AND CALL LIGHT KEPT WITHIN REACH. WILL CONTINUE TO MONITOR.
[2020-05-03 20:00] VITALS: BP 106/52
[2020-05-03] MEDS: ENOXAPARIN SODIUM 40 MG/0.4 ML DISP.SYRIN SQ SCH (20:39)
[2020-05-04] VITALS (20 sets, daily range): BP systolic 106–166; BP diastolic 62–110
[2020-05-04] MEDS: IV 1/2NS 1000 ML 1,000 ML IV PRN (04:45)
[2020-05-04] MEDS: BLOOD SUGAR DIAGNOSTIC 1 EACH STRIP IN SCH ×3 (06:46→18:04)
--- NOTE | 2020-05-04 06:51 | NUR ---
BALANCING MACHINE OPERATOR NOTES PATIENT IN BED, SLEEPY, AROUSABLE. BREATHING EVEN AND UNLABORED ON 5L MASK AT 96%. SHOWS NO SIGNS OF ACUTE RESPIRATORY DISTRESS, NO ACUTE PAIN. TELE MONITOR SR AT 90'S. FC CLEAN DRY AD INTACT, FLOWING YELLOW URINE. IV IN RAC 20G RUNNING @ 1/2 NS AT 75ML/HR. SHOWS NO SIGNS OF INFILTRATION, NO REDNESS. ALL DUE MEDICATIONS GIVEN. SAFETY PRECAUTIONS IN PLACE. BED IN LOWEST POSITION, LOCKED, AND CALL LIGHT KEPT WITHIN REACH. WILL ENDORSE TO ONCOMING NURSE.
[2020-05-04] MEDS: ASPIRIN EC 81 MG TABLET.DR PO SCH (09:00)
[2020-05-04 09:02] LABS: ALBUMIN 2.8 g/dL (3.4-5.0); BILIRUBIN,TOTAL 1.1 mg/dL (0.2-1.0); CALCIUM, SERUM 8.6 mg/dL (8.5-10.1); CREATININE 0.7 mg/dL (0.6-1.3); MAGNESIUM 2.6 mg/dL (1.8-2.4); PHOSPHORUS 5.4 mg/dL (2.5-4.9); POTASSIUM 5.6 mmol/L (3.5-5.1); TOTAL PROTEIN, SERUM 6.1 g/dL (6.4-8.2)
[2020-05-04 10:46] LABS: THYROID STIMULATING HORMONE 0.84 uIU/mL (0.358-3.74)
--- NOTE | 2020-05-04 11:00 | NUR ---
EMERGENCY MEDICAL SERVICES COORDINATOR NOTES PATIENT SEEN AND EVALUATED BY YRIS ESCALANTE.
[2020-05-04 11:05] LABS: BASOPHILS % (AUTO) 0.2 % (0.0-2.0); EOSINOPHILS % (AUTO) 0.1 % (0.0-6.0); HEMATOCRIT 44 % (33-45); HEMOGLOBIN 12.5 g/dL (11.5-14.8); LYMPHOCYTES # (AUTO) 0.8 /CMM (0.8-4.8); MEAN CORPUSCULAR HGB CONC 28 g/dl (31.0-36.0); MEAN CORPUSCULAR VOLUME 73 fL (82-100); MONOCYTES # (AUTO) 1.3 /CMM (0.1-1.30); MONOCYTES % (AUTO) 11.2 % (2.0-12.0); NEUTROPHILS # (AUTO) 9.2 /CMM (1.8-8.9); NEUTROPHILS % (AUTO) 81.5 % (43.0-81.0); PLATELET COUNT (AUTO) 113 /CMM (150-450); RED BLOOD CELL COUNT(AUTO) 5.99 MIL/uL (4.0-5.2); WHITE BLOOD COUNT (AUTO) 11.2 K/uL (4.3-11.0)
[2020-05-04 11:41] LABS: ABG OXYGEN SATURATION 96.6 % (92.0-98.5); ABG PCO2 123.1 mmHg (35.0-45.0); ABG PH 7.114 (7.350-7.450); ABG PO2 86.5 mmHg (75.0-100.0); COHb 2.7 % (0.5-1.5); MetHb 0.3 % (0.0-1.5); O2Hb 93.7 % (94.0-97.0); SITE, ABG Right Radial
--- NOTE | 2020-05-04 12:20 | NUR ---
RN NOTES PATIENT TRANSFERRED TO ICU DUE TO ABG RESULTS. PATIENT ALERT, ORIENTED X1. VS STABLE. BEDSIDE REPORT GIVEN TO DANIELLE.
--- NOTE | 2020-05-04 12:34 | NUR ---
BILINGUAL SPEECH LANGUAGE PATHOLOGIST NOTE RECEIVED PATIENT FROM [facility], AWAKE ALERT WITH CONFUSION ,NOT COOPERATIVE AND VERY RESTLESS, TRYING TO REMOVE ALL LINES , GET OUT OFF BED , SOFT RETRAIN APPLIED DR ARNDT NOTIFIED , RT AT BEDSIDE BIPAP MACHINE PLACED BY DR COE ORDER, ON TELE MONITOR ST HR 108, WITH HEARD CATH TO GRAVITY WITH CLEAR KRISTINE COLOR , ON NPO STATUS ORDERED ,WILL START IVF ORDERED, BED IN LOWEST AND LOCKED POSITION, WILL INSERT MID LINE ORDERED ,WILL CONT TO MONITOR CLOSELY
[2020-05-04] MEDS: IV NS 0.9% 1,000 ML IV PRN ×2 (12:54→23:41)
--- NOTE | 2020-05-04 14:36 | NUR ---
SPLITTER OPERATOR NOTE CONT ON IVF ORDERED ,ON BIPAP MACHINE ORDERED ,ALL NEEDS ATTENDED
--- NOTE | 2020-05-04 15:00 | NUR ---
CREDIT CLERK NOTE NOTED PATIENT WAS VOMITING X 1 ,DR COE NOTIFIED OK TO DO ABG
[2020-05-04 15:01] LABS: ABG BASE EXCESS 5.2 mmol/L; ABG OXYGEN SATURATION 95.1 % (92.0-98.5); ABG PCO2 80.8 mmHg (35.0-45.0); ABG PH 7.254 (7.350-7.450); ABG PO2 66.1 mmHg (75.0-100.0); AaDO2 52.9 mmHg; COHb 2.6 % (0.5-1.5); MetHb 0.1 % (0.0-1.5); O2Hb 92.5 % (94.0-97.0); SITE, ABG Right Radial; VENT MODE, BG N/C 30%
--- NOTE | 2020-05-04 15:17 | NUR ---
INSOLE TACKER NOTE PER DR COOPER OK TO PLACE ON 3L NC, SAT NOW 94% ,AWARE OF ABG RESULT ,WILL F\U
--- NOTE | 2020-05-04 16:30 | NUR ---
SALESPERSON SHEET MUSIC NOTED NOTED VOMITING AGAIN WITH GREENISH COLOR EMESES MOD AMT ,ZOFRAN IVP GIVEN ORDERED, DR ARNDT NOTIFIED WILL F\U
[2020-05-04 17:21] LABS: CALCIUM, SERUM 8.5 mg/dL (8.5-10.1); CREATININE 0.5 mg/dL (0.6-1.3); POTASSIUM 4.6 mmol/L (3.5-5.1)
--- NOTE | 2020-05-04 17:51 | NUR ---
WASHER BLANKET NOTE PATIENT BECOME VERY AGITATED AND RESTLESS TRYING TO GET OUT OFF BED AND REMOVEV O2 ,DR ARNDT NOTIFIED WITH ORDER ATIVAN AND PSYCH EVAL , WILL F\U
[2020-05-04] MEDS: LORAZEPAM INJ 2 MG/ML VIAL IV PRN (17:55)
--- NOTE | 2020-05-04 18:05 | NUR ---
PHP LAMP DEVELOPER NOTE VERY AGITATED AND RESTLESS, TRYING TO GET OUT OFF BED, ATIVAN PER ORDER DR ARNDT GIVEN , WILL F\U
--- NOTE | 2020-05-04 18:19 | NUR ---
SPIKE MACHINE HEATER NOTE NOTED SATURATION 88% ,PLACED ON 4L NC .RT CIRA NOTIFIED ,WILL CONT TO MONITOR
--- NOTE | 2020-05-04 19:12 | NUR ---
DIRECTOR TOXICOLOGY NOTE NOTIFIED TO YRIS HAM THAT PATIENT WITH HX BENZO OVERDOSE AND ATIVAN 0.5MG IVP GIVEN STATED ITS OK NO NEW ORDER GIVEN AT THIS TIME ,WILL MONITOR
[2020-05-04 19:22] LABS: ABG BASE EXCESS 4.8 mmol/L; ABG OXYGEN SATURATION 95.4 % (92.0-98.5); ABG PCO2 102.6 mmHg (35.0-45.0); ABG PO2 78.2 mmHg (75.0-100.0); AaDO2 29.9 mmHg; COHb 2.3 % (0.5-1.5); MetHb 0.2 % (0.0-1.5); SITE, ABG Right Radial
--- NOTE | 2020-05-04 19:30 | NUR ---
RN/ICU-RESULTS OF ABG IN, PT. ON NC 4L AT THIS TIME. SATS.-95%. RELAYED TO Gregg VALDEZ DNP. WILL PLACE PT. ON BIPAP BY RT PER PROTOCOL FOR NOW.
--- NOTE | 2020-05-04 20:10 | NUR ---
RN/ICU- DR. VALDEZ DNP CALLED W/ ORDERS OK. TO KEEP PT. ON BIPAP W/ SETTINGS I/E-/, RATE-26. FOR NOW. WILL INTUBATE PT. MAY. WILL PREPARE FOR INTUBATION ORDERED.
[2020-05-04] MEDS: ENOXAPARIN SODIUM 40 MG/0.4 ML DISP.SYRIN SQ SCH (20:31)
--- NOTE | 2020-05-04 20:40 | NUR ---
RN/ICU-PT. VOMITED MODERATE AMOUNT OF GREENISH GI CONTENTS. BIPAP OFF FOR NOW AND PLACED ON NC 2L/MIN. AROUSABLE, SLIGHTLY AGITATED, BED BATH GIVEN. WILL MONITOR CLOSELY.
--- NOTE | 2020-05-04 21:15 | NUR ---
RN/ICU-REMAINS AROUSABLE, ORIENTED TO SELF AND PLACE. Gregg VALDEZ DNP MADE AWARE OF THE SITUATION.
[2020-05-04 22:02] LABS: ABG BASE EXCESS 4.4 mmol/L; ABG OXYGEN SATURATION 90.4 % (92.0-98.5); ABG PCO2 99.9 mmHg (35.0-45.0); ABG PH 7.174 (7.350-7.450); ABG PO2 57.1 mmHg (75.0-100.0); AaDO2 24.7 mmHg; COHb 2.3 % (0.5-1.5); MetHb 0.2 % (0.0-1.5); O2Hb 88.1 % (94.0-97.0); SITE, ABG Right Radial
--- NOTE | 2020-05-04 22:36 | NUR ---
PT ORALLY INTUBATED BY MD VALDEZ WITH 7.5 ETT SECURED AT 23CM ON THE LIP LINE. COLOR CHANGE ON CO2 DETECTOR CONFIRMED. MIST IN TUBE NOTED. EQUAL BREATH SOUNDS AND CHEST RISE NOTED. MIXING PLANT DUMPER DONE. PT PLACED ON [facility] VENT ON ORDERED SETTINGS AC MODE, RATE 24, VT 450, FIO2 100%, PEEP 0. PT SUCTIONED. PT HAS MODERATE AMOUNT OF THICK [place] SECRETIONS. VENT ALARMS SET AND AUDIBLE. VENT PLUGGED INTO RED OUTLET. AMBUBAG AT BEDSIDE. WILL DRAW ABG IN AN HOUR. WILL CONT TO MONITOR CLOSELY. Addendum: 05/04/20 at 2322 by FANY BANDA RT Amended: Links added.
[2020-05-04] MEDS: PROPOFOL 100 ML IV PRN (23:05)
[2020-05-05] VITALS (65 sets, daily range): BP systolic 48–178; BP diastolic 30–116
[2020-05-05] MEDS ORDERED: NOREPINEPHRINE 8 MG in IV NS 0.9% 242 ML IV STA (00:07)
[2020-05-05] MEDS ORDERED: NOREPINEPHRINE 4 MG/4 ML AMPUL IV ONE (00:09)
[2020-05-05] MEDS: BLOOD SUGAR DIAGNOSTIC 1 EACH STRIP IN SCH ×4 (00:20→17:41)
[2020-05-05 00:31] LABS: ABG BASE EXCESS 5.5 mmol/L; ABG OXYGEN SATURATION 99.8 % (92.0-98.5); ABG PCO2 62.2 mmHg (35.0-45.0); ABG PH 7.341 (7.350-7.450); ABG PO2 513.3 mmHg (75.0-100.0); AaDO2 137.5 mmHg; COHb 1.2 % (0.5-1.5); MetHb 0.3 % (0.0-1.5); O2Hb 98.3 % (94.0-97.0); SITE, ABG Right Radial
--- NOTE | 2020-05-05 00:31 | NUR ---
POST INTUBATION ABG RESULTS AT 1231 ARE ON SETTINGS AC, 26, VT 450, FIO2 100%, PEEP 0. NOT VT 500.
[2020-05-05] MEDS ORDERED: NOREPINEPHRINE 8 MG in IV NS 0.9% 242 ML IV SCH (01:00)
[2020-05-05] MEDS: PROPOFOL 100 ML IV PRN ×8 (02:03→23:31)
--- NOTE | 2020-05-05 03:00 | NUR ---
RN/ICU-ABG DONE BY RT. RESULTS IN ,RELAYED TO Gregg VALDEZ DNP, W/ ORDERS NOTED. VENT AC RATE DECREASED TO 20. WILL NOTIFY RT.
[2020-05-05 03:07] LABS: ABG BASE EXCESS 7.4 mmol/L; ABG OXYGEN SATURATION 98.9 % (92.0-98.5); ABG PCO2 30.5 mmHg (35.0-45.0); ABG PH 7.593 (7.350-7.450); ABG PO2 104.1 mmHg (75.0-100.0); COHb 0.9 % (0.5-1.5); PEEP,BG 0 cm H2O; SITE, ABG Right Radial; VENT MODE, BG AC 26 550 40%
--- NOTE | 2020-05-05 04:00 | NUR ---
RN/ICU-FEVERISH, TEMPT-100/F,CONTINUOUS COOLING MEASURES DONE.
[2020-05-05 04:44] LABS: BASOPHILS % (AUTO) 0.2 % (0.0-2.0); EOSINOPHILS % (AUTO) 0.1 % (0.0-6.0); HEMATOCRIT 39 % (33-45); HEMOGLOBIN 11.5 g/dL (11.5-14.8); LYMPHOCYTES # (AUTO) 1.7 /CMM (0.8-4.8); LYMPHOCYTES % (AUTO) 15.5 % (20.0-44.0); MEAN CORPUSCULAR HGB CONC 29 g/dl (31.0-36.0); MEAN CORPUSCULAR VOLUME 71 fL (82-100); MONOCYTES # (AUTO) 1.2 /CMM (0.1-1.30); MONOCYTES % (AUTO) 11.2 % (2.0-12.0); NEUTROPHILS # (AUTO) 8.1 /CMM (1.8-8.9); PLATELET COUNT (AUTO) 142 /CMM (150-450); RED BLOOD CELL COUNT(AUTO) 5.49 MIL/uL (4.0-5.2); WHITE BLOOD COUNT (AUTO) 11.1 K/uL (4.3-11.0)
[2020-05-05 04:54] LABS: CALCIUM, SERUM 9.1 mg/dL (8.5-10.1); CREATININE 0.8 mg/dL (0.6-1.3); POTASSIUM 4.3 mmol/L (3.5-5.1)
[2020-05-05] MEDS: IV NS 0.9% 1,000 ML IV PRN ×2 (05:07→12:29)
[2020-05-05 05:32] LABS: PHOSPHORUS 0.3 mg/dL (2.5-4.9)
[2020-05-05] MEDS ORDERED: Sodium Phosphate 30 MMOL in IV NS 0.9% 250 ML IV SCH ×2 (06:30→08:00)
[2020-05-05] MEDS ORDERED: K PHOS NEUTRAL 250 MG TABLET NG ONE (06:30)
--- NOTE | 2020-05-05 07:25 | NUR ---
ACQUISITION ADVISOR: pt is on 50 mcg/kg/m Diprivan sedation, on wrists restraints, restless episodes reported, now pt is with arms activity, little grimacing, no SOB, O2sat. over 95%, suctioned well, SR, SBP over 100, NPO, injury prevention measures+
[2020-05-05 07:35] LABS: ABG BASE EXCESS 6.6 mmol/L; ABG OXYGEN SATURATION 96.6 % (92.0-98.5); ABG PCO2 37.7 mmHg (35.0-45.0); ABG PH 7.516 (7.350-7.450); ABG PO2 66.9 mmHg (75.0-100.0); AaDO2 174.9 mmHg; COHb 0.4 % (0.5-1.5); MetHb 0.1 % (0.0-1.5); O2Hb 96.1 % (94.0-97.0); SITE, ABG Right Radial; VENT MODE, BG AC 40%; VT, ABG 550 mL
--- NOTE | 2020-05-05 07:45 | NUR ---
ADMINISTRATIVE DIETITIAN: updated/ordered ABG now
--- NOTE | 2020-05-05 07:50 | NUR ---
MORTGAGE PROFESSIONAL: ABG: pH 7.51/37/66/20, changed vent to: AC16/550/40%/peep5
--- NOTE | 2020-05-05 08:00 | NUR ---
OCEAN RESCUE LIEUTENANT: is in room, evaluated pt neurostatus, sedation level, restless episodes, VS, T, NPO, suction amount, I/O, ordered: ok go up to max 100mcg/kg/min Diprivan rate, pt.daughter called/updated, POC+
--- NOTE | 2020-05-05 08:30 | NUR ---
EMBEDDED SOFTWARE MANAGER: pt.is restless now, agitating, grimacing, coughing, biting ETT, strong arms/legs activity, O2sat. 94-98%, SR, SBP [id number]/, increased Diprivan gtt to 65 mcg/kg/m, Ativan 0.5 mg IV given
[2020-05-05] MEDS: LORAZEPAM INJ 2 MG/ML VIAL IV PRN ×2 (08:54→13:33)
[2020-05-05] MEDS: ASPIRIN EC 81 MG TABLET.DR PO SCH (08:57)
--- NOTE | 2020-05-05 09:15 | NUR ---
BUSINESS MANAGEMENT CONSULTANT: pt is sedated well now, rest, no SOB, no distress, SBP over 100, SR, O2sat. WNL
[2020-05-05] MEDS ORDERED: ETOMIDATE 2 MG/ML VIAL ONE (09:29)
[2020-05-05] MEDS ORDERED: ROCURONIUM BROMIDE 50 MG/5 ML ONE (09:29)
--- NOTE | 2020-05-05 09:50 | NUR ---
EXPANSION JOINT BUILDER: is in room, notified re history, VS, sedation level, ABG, I/O, NPO, pressor off, IVF, see new orders
--- NOTE | 2020-05-05 12:20 | NUR ---
RECEPTIONIST/TELEPHONE OPERATOR: pt is grimacing, slightly biting ETT, arms activity++, no SOB, O2 sat WNL, increased Diprivan to 55-60 mcg/kg/m
[2020-05-05] MEDS: methylPREDNISolone SOD SUCC 40 MG/ML VIAL IV SCH ×2 (12:33→20:58)
--- NOTE | 2020-05-05 13:30 | NUR ---
SAFETY REPRESENTATIVE: pt began restless, agitating after good suction, O2sat. over 97%, no SOB, SR, Ativan 0.5mg iv given
--- NOTE | 2020-05-05 14:45 | NUR ---
VACUUM DRIER OPERATOR: neurologist is in room/updated with history, VS, meds, pt.is sedated with 60 mcg/kg/m Diprivan now, reactive with weak arms/legs activity, grimacing by touch/pain stimuli
--- NOTE | 2020-05-05 15:46 | NUR ---
FRAUD EXAMINER: pt.is reactive with slightly grimacing for deep pain stimuli, HR 56-60, SBP over 100, O2sat over 97%, no SOB, decreased Diprivan to 55-50 mcg/kg/m, suctioned well
[2020-05-05] MEDS: INSULIN REGULAR, HUMAN 100 UNIT/ML 3 ML VIAL SQ PRN (17:27)
--- NOTE | 2020-05-05 18:02 | NUR ---
FILENET P8 DEVELOPER: pt is reactive with grimacing/weak legs,arms activity by pain stimuli, decreased sedation to 45-40 mcg/kg/m Diprivan, rest, O2sat 98-100%, RR 16-17, SR/SB 56-80, SBP [id number], NPO, no N/V, f/c 600ml/12hr, all skin/PM/wound/bedbath care done
--- NOTE | 2020-05-05 19:10 | NUR ---
INFORMATION SECURITY OFFICER OPENING NOTES: Rec'd pt in bed, intubated and sedated 7.5/25 at the lip. Tolerating vent settings well. No respiratory distress noted. AMAURI midline patent and flushing. Dressing c/d/i. NS infusing at 100ml/hr. Diprivan infusing at 40mcg/kg/min. Pt has bilateral soft wrist restraints. Will remove per protocol. NGT clamped, pt NPO. Duncan cath in place, patent and draining urine via gravity. Safety measures in place. Will continue to monitor. Addendum: 05/05/20 at 1935 by DENISSE PARSONS RN SB/SR on tele monitor.
[2020-05-05] MEDS: ENOXAPARIN SODIUM 40 MG/0.4 ML DISP.SYRIN SQ SCH (20:58)
[2020-05-06] VITALS (45 sets, daily range): BP systolic 130–182; BP diastolic 59–96
[2020-05-06] MEDS: BLOOD SUGAR DIAGNOSTIC 1 EACH STRIP IN SCH ×5 (00:05→23:51)
[2020-05-06] MEDS: INSULIN REGULAR, HUMAN 100 UNIT/ML 3 ML VIAL SQ PRN ×4 (00:07→23:52)
--- NOTE | 2020-05-06 00:25 | NUR ---
CONFORMAL PAD FORMER NOTE: Pt noted w/ elevated BP. Rayray Mercery on floor, gave him update and let him know pt was previously on Levo. Gave orders for Hydralazine 10mg IV Q4H PRN for SBP >165. Explained that it is ok for the BP to be elevated. Orders noted and carried out.
[2020-05-06] MEDS: IV NS 0.9% 1,000 ML IV PRN ×3 (00:29→21:02)
--- NOTE | 2020-05-06 00:55 | NUR ---
CEMENT GRINDING MILL OPERATOR NOTE: Pt noted w/ episode of 5 beats of V Tach.
[2020-05-06] MEDS: PROPOFOL 100 ML IV PRN ×7 (03:05→23:49)
[2020-05-06] MEDS: methylPREDNISolone SOD SUCC 40 MG/ML VIAL IV SCH ×3 (05:26→21:14)
--- NOTE | 2020-05-06 06:40 | NUR ---
VAT HOUSE SUPERVISOR CLOSING NOTES: Pt remains on mechanical ventilation. No SOB or respiratory distress noted throughout shift. SR/SB on tele monitor. Diprivan infusing at 40mcg/kg/min and NS at 100ml/hr. All meds administered as ordered. Kept clean/dry. Safety measures in place. Will endorse to AM nurse for STEVEN.
--- NOTE | 2020-05-06 07:38 | NUR ---
AIR CREW SUPERVISOR: no distress/agitating episodes over night reported, pt.is sedated with 40 mcg/kg/m Diprivan, rest, reactive by touch/pain stimuli, grimacing, weak extremities activity+, coughing, can open eyes for 1-2secs with suction, on wrists restraints, O2sat.over 96%, no SOB, over night reported: ST 5 bits, 48-60 SB episodes, SBP 170-180, notified , did not give Hydralazine d/t bradycardia, now: SBP 170-180, SR 60-68, will give Hydralazine 10mg IV/charge nurse is agree, NPO, urine 475ml/12hr out, T WNL
[2020-05-06] MEDS: ASPIRIN EC 81 MG TABLET.DR PO SCH (07:59)
[2020-05-06] MEDS: hydrALAZINE HCL IV 20 MG VIAL IV PRN (07:59)
--- NOTE | 2020-05-06 08:10 | NUR ---
LEAF SUCKER OPERATOR: T 97.1, warming measures+
[2020-05-06 08:15] LABS: ABG OXYGEN SATURATION 95.3 % (92.0-98.5); ABG PCO2 47.6 mmHg (35.0-45.0); ABG PH 7.382 (7.350-7.450); ABG PO2 74.2 mmHg (75.0-100.0); AaDO2 156.3 mmHg; COHb 0.7 % (0.5-1.5); MetHb 0.1 % (0.0-1.5); O2Hb 94.5 % (94.0-97.0); PEEP,BG 5 cm H2O; SITE, ABG Right Radial; VT, ABG 500 mL
--- NOTE | 2020-05-06 09:40 | NUR ---
FLAVORINGS COMPOUNDER: pt was restless, extremities activity++, coughing, can open eyes, increased sedation to 45-50 mcg/kg/m Diprivan, suctioned well x2
--- NOTE | 2020-05-06 09:45 | NUR ---
GENERAL MEDICAL PRACTITIONER: is in room/updated with pt/current condition, sedation level/reactions, VS, I/O, NPO, IVF, ABG, high BP episodes, 5 VT bits episode, meds, ordered: keep NPO if pt will be extubated today otherwise if still with ETT/vent - start NGTF Glucerna 20ml/hr
[2020-05-06 10:32] LABS: BASOPHILS % (AUTO) 0.4 % (0.0-2.0); EOSINOPHILS % (AUTO) 0.2 % (0.0-6.0); HEMATOCRIT 38 % (33-45); HEMOGLOBIN 11.6 g/dL (11.5-14.8); LYMPHOCYTES # (AUTO) 0.7 /CMM (0.8-4.8); LYMPHOCYTES % (AUTO) 12.3 % (20.0-44.0); MEAN CORPUSCULAR HGB CONC 30 g/dl (31.0-36.0); MEAN CORPUSCULAR VOLUME 68 fL (82-100); MONOCYTES # (AUTO) 0.7 /CMM (0.1-1.30); MONOCYTES % (AUTO) 12.2 % (2.0-12.0); NEUTROPHILS # (AUTO) 4.3 /CMM (1.8-8.9); NEUTROPHILS % (AUTO) 74.9 % (43.0-81.0); PLATELET COUNT (AUTO) 123 /CMM (150-450); RED BLOOD CELL COUNT(AUTO) 5.58 MIL/uL (4.0-5.2); WHITE BLOOD COUNT (AUTO) 5.7 K/uL (4.3-11.0)
[2020-05-06 10:47] LABS: ALBUMIN 2.5 g/dL (3.4-5.0); BILIRUBIN,TOTAL 0.9 mg/dL (0.2-1.0); CALCIUM, SERUM 8.4 mg/dL (8.5-10.1); CREATININE 0.4 mg/dL (0.6-1.3); MAGNESIUM 1.9 mg/dL (1.8-2.4); PHOSPHORUS 2.3 mg/dL (2.5-4.9); POTASSIUM 3.3 mmol/L (3.5-5.1); TOTAL PROTEIN, SERUM 5.6 g/dL (6.4-8.2)
--- NOTE | 2020-05-06 11:47 | NUR ---
SYSTEMS ANALYSIS MANAGER: is in room, updated with pt.current status, sedation level, vent.setting/ABG, suctions amount, O2sat., VS, I/O, NPO, labs/K 3.3, ordered: KCl 40 meq via GTx1, said: pt.is not candidate for vent weaning today
[2020-05-06] MEDS ORDERED: POTASSIUM CHLORIDE 20 MEQ POWDER PACKET GT ONE (12:00)
[2020-05-06 12:52] LABS: BAND % (MANUAL) 1 % (0.0-5.0); LYMPHOCYTES % (MANUAL) 15 % (16-48); MONOCYTES % (MANUAL) 14 % (0-11.0); NEUTROPHILS % (MANUAL) 70 (42-76)
[2020-05-06] MEDS: GLUCERNA 1.2 1,000 ML BOTTLE GT PRN (14:44)
--- NOTE | 2020-05-06 15:30 | NUR ---
SENIOR SYSTEMS SOFTWARE ENGINEER: pt. is reactive with awake up reaction (can open eyes, short eyes contact+) with titrated slowly down Sedation to 40-35 mcg/kg/min, but easy beginning agitating, restless, uncontrolled arms activity with self extubation risk, biting ETT, coughing, continue keep pt sedated well f/u note
[2020-05-06] MEDS ORDERED: NEUTRA PHOS 1 POWD.PACKET GT ONE (17:00)
--- NOTE | 2020-05-06 17:46 | NUR ---
CORPORATE PLANNING MANAGER: pt is sedated well with 50 mcg/kg/m Diprivan, rest, reactive by touch/pain, no SOB, O2sat. over 98%, SR, SBP upat546/below 160 now, all PM/skin/wound/bedbath care done, repositioned q2h, skin under restraints: intact, WNL
--- NOTE | 2020-05-06 19:10 | NUR ---
BUILDING TRADES TEACHER OPENING NOTES: Rec'd pt in bed, sedated and intubated ETT 7.5/25 at the lip. On mechanical ventilation tolerating well. No SOB or respiratory distress noted. SR on tele monitor. AMAURI midline patent and flushed. Diprivan infusing at 50mcg/kg/min. NS infusing at 100ml/hr. Tolerating well. Dressing c/d/i. On bilateral SWR. Will release per protocol. GT flushed and patent w/ Glucerna infusing at 20ml/hr. Minimal residual noted. Duncan cath in place draining urine via gravity. Safety measures in place. Will continue to monitor.
--- NOTE | 2020-05-06 19:48 | NUR ---
CERTIFIED MASTER SAFE TECHNICIAN NOTES: Pt noted w/ episode of 5 beats of V-Tach.
[2020-05-06] MEDS: ENOXAPARIN SODIUM 40 MG/0.4 ML DISP.SYRIN SQ SCH (21:16)
--- NOTE | 2020-05-06 21:38 | NUR ---
RN NOTE: Spoke w/ Dr. Sanchez who wanted update on pt. Stated she will order pelvic US and labs for am. Will endorse to AM nurse.
[2020-05-07] VITALS (40 sets, daily range): BP systolic 125–190; BP diastolic 55–102
[2020-05-07] MEDS: PROPOFOL 100 ML IV PRN ×7 (02:19→23:02)
[2020-05-07] MEDS: hydrALAZINE HCL IV 20 MG VIAL IV PRN ×4 (03:38→18:26)
--- NOTE | 2020-05-07 04:02 | NUR ---
COAL WASHER TENDER NOTE: 0330: Pt noted to have elevated BP of 182/75. 0336: Repositioned cuff, and rechecked BP. BP now 177/80. 0338: Hydralazine 10mg IVP Q4H PRN administered as ordered for SBP >165. Will continue to monitor.
[2020-05-07] MEDS: methylPREDNISolone SOD SUCC 40 MG/ML VIAL IV SCH ×3 (05:15→20:14)
[2020-05-07] MEDS: BLOOD SUGAR DIAGNOSTIC 1 EACH STRIP IN SCH ×3 (05:34→17:14)
[2020-05-07] MEDS: INSULIN REGULAR, HUMAN 100 UNIT/ML 3 ML VIAL SQ PRN ×3 (05:36→18:44)
--- NOTE | 2020-05-07 06:48 | NUR ---
STARCH COOKER CLOSING NOTES: Pt remains on mechanical ventilation tolerating settings well. No respiratory distress noted throughout shift. No acute changes noted throughout shift. AMAURI midline patent and infusing Diprivan at 50mcg/kg/min and NS at 100ml/hr. Kept clean and dry. All meds administered as ordered. Safety measures in place. Will endorse to AM nurse for STEVEN.
[2020-05-07] MEDS: IV NS 0.9% 1,000 ML IV PRN (06:53)
[2020-05-07] MEDS: FOLIC ACID 1 MG TABLET PO SCH (08:21)
[2020-05-07] MEDS: ASPIRIN EC 81 MG TABLET.DR PO SCH (08:21)
[2020-05-07 09:05] LABS: CALCIUM, SERUM 8.3 mg/dL (8.5-10.1); CREATININE 0.5 mg/dL (0.6-1.3); POTASSIUM 4.1 mmol/L (3.5-5.1)
[2020-05-07 09:11] LABS: ALBUMIN 2.5 g/dL (3.4-5.0); BILIRUBIN,TOTAL 0.8 mg/dL (0.2-1.0); TOTAL PROTEIN, SERUM 5.4 g/dL (6.4-8.2)
[2020-05-07 09:28] LABS: BASOPHILS % (AUTO) 0.3 % (0.0-2.0); EOSINOPHILS % (AUTO) 0.1 % (0.0-6.0); HEMATOCRIT 37 % (33-45); HEMOGLOBIN 11.2 g/dL (11.5-14.8); LYMPHOCYTES # (AUTO) 0.7 /CMM (0.8-4.8); MEAN CORPUSCULAR HGB CONC 31 g/dl (31.0-36.0); MEAN CORPUSCULAR VOLUME 68 fL (82-100); MONOCYTES # (AUTO) 0.4 /CMM (0.1-1.30); MONOCYTES % (AUTO) 7.2 % (2.0-12.0); NEUTROPHILS # (AUTO) 4.9 /CMM (1.8-8.9); NEUTROPHILS % (AUTO) 81.4 % (43.0-81.0); PLATELET COUNT (AUTO) 115 /CMM (150-450); RED BLOOD CELL COUNT(AUTO) 5.39 MIL/uL (4.0-5.2)
--- NOTE | 2020-05-07 11:51 | NUR ---
RN NOTE PER DR CRENSHAW DO NOT INITIATE SEDATION VACATION UNTIL TOMORROW
[2020-05-07 12:40] LABS: LYMPHOCYTES % (MANUAL) 11 % (16-48); MONOCYTES % (MANUAL) 5 % (0-11.0); NEUTROPHILS % (MANUAL) 84 (42-76)
[2020-05-07] MEDS: ACETAMINOPHEN 650 MG/20.3 ML UDC NG PRN (13:33)
[2020-05-07] MEDS: LORAZEPAM INJ 2 MG/ML VIAL IV PRN ×2 (15:48→21:30)
[2020-05-07 15:55] LABS: ABG BASE EXCESS 0.8 mmol/L; ABG PCO2 40.9 mmHg (35.0-45.0); ABG PH 7.412 (7.350-7.450); ABG PO2 107.8 mmHg (75.0-100.0); AaDO2 130.4 mmHg; COHb 0.3 % (0.5-1.5); MetHb 0.3 % (0.0-1.5); O2Hb 97.4 % (94.0-97.0); VENT MODE, BG AC 16 500 40% +5
--- NOTE | 2020-05-07 19:30 | NUR ---
RN NOTES RECEIVED PATIENT IN BED INTUBATED ETT 7.03/13 AT THE [facility] TOLERATING WELL. ON MECHANICAL VENTILATION SETTING TOLERATING WELL ORDERED.RESPIRATION EVEN NO DISTRESS NOTED. TELE MONITOR SHOWS SR. AMAURI MIDLINE INTACT, PATENT FLUSHED WELL. ABD SOFT AND NON DISTENDED. F/C INTACT YELLOW URINE RUNNING TO GRAVITY. BUE WITH SOFT RESTRAINT RELEASED AND CHECK FOR CIRCULATION AND PULSE Q2 HOURS. ONGOING SKIN TREATMENT SEE FLOW SHEET FOR SKIN ASSESSMENT. SAFETY MEASURES IN PLACE, CALL LIGHT WITHIN REACH. WILL CONT TO MONITOR.
[2020-05-07] MEDS: ENOXAPARIN SODIUM 40 MG/0.4 ML DISP.SYRIN SQ SCH (20:29)
[2020-05-07] MEDS ORDERED: ENALAPRILAT DIHYD. (2.5MG/ML) 1.25 MG/ML VIAL IV PRN (22:30)
[2020-05-07] MEDS ORDERED: ENALAPRILAT INJ (1.25 MG/ML) 1.25 MG/ML VIAL IV ONE (22:42)
[2020-05-08] VITALS (33 sets, daily range): BP systolic 100–195; BP diastolic 41–103
[2020-05-08] MEDS: BLOOD SUGAR DIAGNOSTIC 1 EACH STRIP IN SCH ×4 (00:15→17:57)
[2020-05-08] MEDS: INSULIN REGULAR, HUMAN 100 UNIT/ML 3 ML VIAL SQ PRN ×3 (00:18→18:07)
[2020-05-08] MEDS: PROPOFOL 100 ML IV PRN ×5 (00:30→07:30)
[2020-05-08] MEDS ORDERED: NICARDIPINE IN DEXTROSE,ISO-OS 200 ML IV ONE (00:42)
[2020-05-08] MEDS ORDERED: NICARDIPINE HCL 20 MG in IV NS 0.9% 184 ML IV PRN (01:00)
[2020-05-08] MEDS ORDERED: BUMETANIDE INJ 0.25 MG/ML VIAL IV ONE (01:00)
--- NOTE | 2020-05-08 02:25 | NUR ---
RN NOTES STARTED BLOOD TRANSFUSION AT 2100 DR NOTIFIED PATIENT'S TEMP-99.3. STOPPED DUE TO SUSPECTED TRANSFUSION REACTION. DR. VALDEZ NOTIFIED, PER DR. VALDEZ IT IS NOT A TRANSFUSION REACTION IT IS CHF. PATIENT IS OVER LOADED. CONTINUES TRANSFUSION TIL 4 HOUR MARIEL AND STOP GIVING ONLY HALF UNIT. NOTIFIED DR. VALDEZ THAT HALF THE UNIT WAS GIVEN PRIOR TO EXPIRATION. PER DR. VALDEZ CHECK H&H IN AM. Addendum: 05/08/20 at 0547 by SANDY NAIR RN ERROR IN CHARTING-WRONG PATIENT.
[2020-05-08] MEDS: GLUCERNA 1.2 1,000 ML BOTTLE GT PRN (04:53)
[2020-05-08] MEDS: methylPREDNISolone SOD SUCC 40 MG/ML VIAL IV SCH ×3 (05:05→20:10)
--- NOTE | 2020-05-08 06:51 | NUR ---
RN NOTES PATIENT CONTINUES ON DIPRIVAN, VENT SETTING TOLERATING WELL ORDERED. DURING SHIFT PATIENT RECEIVED ROUTINE MEDICATIONS ALONG WITH PRN'S TOLERATED WELL. PATIENT NOTED WITH HIGH BLOOD PRESSURE DR. VALDEZ NOTIFIED NEW ORDER TO GIVE VASOTEC 2.5MG GIVEN ORDERED MEDICATION NOTED TO BE INEFFECTIVE DR. VALDEZ NOTIFIED NEW ORDER TO GIVE CARDRONE AND BUMEX, GIVEN EFFECTIVE B/P IN WNL. URINE OUT PUT 1200ML. BUE WITH SOFT RESTRAINT RELEASED AND CHECK FOR CIRCULATION AND PULSE Q2 HOURS. ONGOING SKIN TREATMENT SEE FLOW SHEET FOR SKIN ASSESSMENT. SAFETY MEASURES IN PLACE, CALL LIGHT WITHIN REACH. WILL ENDORSE TO AM NURSE FOR STEVEN.
--- NOTE | 2020-05-08 07:20 | NUR ---
RN OPENING NOTE: RECEIVED PATIENT IN BED THIS MORNING. PATIENT IS SEDATED AND INTUBATED, TOLERATING VENT SETTINGS WELL, NO SIGNS OF ACUTE RESPIRATORY DISTRESS NOTED. PATIENT IS SR/SB ON THE BEDSIDE MONITOR IN THE 50S. PATIENT HAS A HEARD, DRAINING URINE. NGT IN LEFT NARE, 10 CC RESIDUAL NOTED RUNNING GLUCERNA 1.2 AT 20CC/HR. AMAURI MIDLINE, #22 R HAND, FLUSHING WELL, C/D/I, NO SIGNS OF COMPLICATIONS NOTES. SAFETY MEASURES IMPLEMENTED, BED IN LOWEST POSITION, LOCKED, SIDE RAILS UPX2, CALL LIGHT WITHIN REACH. WILL CONTINUE TO MONITOR PATIENT FOR CHANGES AND GET A PSYCH EVAL ONCE PATIENT IS EXTUBATED.
[2020-05-08] MEDS ORDERED: DC PROPOFOL WHEN EXTUBATED XX PRN (08:00)
[2020-05-08] MEDS: ASPIRIN EC 81 MG TABLET.DR PO SCH (08:59)
[2020-05-08] MEDS: FOLIC ACID 1 MG TABLET PO SCH (08:59)
[2020-05-08] MEDS: LORAZEPAM INJ 2 MG/ML VIAL IV PRN ×2 (10:37→12:53)
[2020-05-08] MEDS: ALBUTEROL FS 2.5 MG/0.5 ML VIAL.NEB NEB SCH ×4 (12:30→23:24)
--- NOTE | 2020-05-08 12:49 | NUR ---
PER DR RAMIREZ, HAVE PATIENT SEEN BY VALLEZ FILTER OPERATOR. FAXED PAPERWORK OVER TO [employer], AWAITING PSYCH CONSULT BY DR BELTRAN
--- NOTE | 2020-05-08 12:49 | NUR ---
PATIENT IS HAVING BEHAVIORAL SYMPTOMS. PATIENT IS RESTLESS, YELLING OFTEN, DEMANDING THE SAME THINGS OVER AND OVER WHEN I HAVE ALREADY ANSWERED HER QUESTIONS.
--- NOTE | 2020-05-08 14:06 | NUR ---
GAVE REPORT TO NAMITA OLIVEROS FOR CONTINUITY OF CARE
[2020-05-08] MEDS: FLUOXETINE HCL 20 MG CAPSULE PO SCH (15:22)
[2020-05-08 15:23] LABS: ABG BASE EXCESS 2.6 mmol/L; ABG OXYGEN SATURATION 98.6 % (92.0-98.5); ABG PCO2 47.2 mmHg (35.0-45.0); ABG PH 7.393 (7.350-7.450); AaDO2 25.4 mmHg; COHb 0.4 % (0.5-1.5); MetHb 0.1 % (0.0-1.5); O2Hb 98.1 % (94.0-97.0); SITE, ABG Right Radial; VENT MODE, BG 5 L
[2020-05-08 15:23] LABS: ABG BASE EXCESS 4.7 mmol/L; ABG OXYGEN SATURATION 97.4 % (92.0-98.5); ABG PCO2 54.5 mmHg (35.0-45.0); ABG PH 7.375 (7.350-7.450); AaDO2 49.9 mmHg; MetHb 0.1 % (0.0-1.5); O2Hb 96.3 % (94.0-97.0); SITE, ABG Right Femoral; VENT MODE, BG SIMV 4 PS 15 +5
--- NOTE | 2020-05-08 19:11 | NUR ---
RN CLOSING NOTES PATIENT IS IN BED AWAKE AND COMFORTABLE A/O X 1 CONFUSED. NO S/S OF RESPIRATORY DISTRESS, TELE READING AT SR/SB. SEDATION VACATION 0740 , TOLERATED WELL. SAFETY MEASURES IMPLEMENTED, BED LOCKED AND IN LOWEST POSITION, CALL LIGHT WITHIN EASY REACH. WILL ENDORSED TO PM NURSE FOR STEVEN.
--- NOTE | 2020-05-08 19:30 | NUR ---
RN NOTES RECEIVED PATIENT IN BED AOX2 WITH PERIODS OF CONFUSION. BREATHING NORMAL NO SOB NOTED. RESPIRATION EVEN NON LABORED. ON OXYGEN 3L/MIN VIA NC SATURATING 99%. TELE MONITOR SHOWS SR IN 80'S. AMAURI MIDLINE INTACT PATENT FLUSHED WELL. F/C INTACT YELLOW URINE RUNNING WELL TO GRAVITY. SAFETY MEASURES IN PLACE, CALL LIGHT WITHIN REACH. BED IN LOW AND LOCKED POSITION. WILL CONT TO MONITOR FOR STEVEN.
[2020-05-08] MEDS: ACETAMINOPHEN 650 MG/20.3 ML UDC NG PRN (19:51)
[2020-05-08] MEDS: ENOXAPARIN SODIUM 40 MG/0.4 ML DISP.SYRIN SQ SCH (20:11)
[2020-05-09] VITALS (27 sets, daily range): BP systolic 110–178; BP diastolic 56–124
[2020-05-09] MEDS: BLOOD SUGAR DIAGNOSTIC 1 EACH STRIP IN SCH ×5 (00:07→21:08)
[2020-05-09] MEDS: hydrALAZINE HCL IV 20 MG VIAL IV PRN ×2 (00:08→17:28)
[2020-05-09] MEDS: INSULIN REGULAR, HUMAN 100 UNIT/ML 3 ML VIAL SQ PRN ×5 (00:27→21:16)
[2020-05-09] MEDS: LORAZEPAM INJ 2 MG/ML VIAL IV PRN (01:12)
[2020-05-09] MEDS: ALBUTEROL FS 2.5 MG/0.5 ML VIAL.NEB NEB SCH ×6 (02:36→23:54)
[2020-05-09] MEDS ORDERED: HALOPERIDOL LACTATE INJ 5 MG/ML VIAL IM ONE (03:00)
[2020-05-09] MEDS: methylPREDNISolone SOD SUCC 40 MG/ML VIAL IV SCH ×3 (05:04→21:00)
--- NOTE | 2020-05-09 07:16 | NUR ---
RN NOTES PATIENT RECEIVED ROUTINE MEDICATIONS ALONG WITH PRN'S TOLERATED WELL. BREATHING NORMAL NO SOB NOTED. IV SITES INTACT PATENT NO INFILTRATION NOTED. DURING SHIFT PATIENT WAS ANXIOUS AND REMOVING HER BIPAP DR VALDEZ NOTIFIED PRN ATIVAN GIVEN INEFFECTIVE. NEW ORDER RECEIVED FOR HALDOL 5MG IM X1 GIVEN EFFECTIVE, PATIENT PUT BACK ON BIPAP. NO SOB, NAD. BED BATH GIVEN TOLERATED WELL, SKIN CARE DONE. ALL SAFETY MEASURES IN PLACE, CALL LIGHT WITHIN REACH. WILL ENDORSE TO AM NURSE FOR STEVEN.
[2020-05-09] MEDS: ASPIRIN EC 81 MG TABLET.DR PO SCH (08:09)
[2020-05-09] MEDS: FLUOXETINE HCL 20 MG CAPSULE PO SCH (08:09)
[2020-05-09] MEDS: FOLIC ACID 1 MG TABLET PO SCH (08:09)
[2020-05-09 08:45] LABS: ABG BASE EXCESS 5.6 mmol/L; ABG OXYGEN SATURATION 96.5 % (92.0-98.5); ABG PH 7.426 (7.350-7.450); ABG PO2 87.8 mmHg (75.0-100.0); AaDO2 69.7 mmHg; COHb 0.1 % (0.5-1.5); MetHb 0.4 % (0.0-1.5); SITE, ABG Right Radial; VENT MODE, BG BIPAP 15/5
[2020-05-09] MEDS ORDERED: DEXTROSE 50%-WATER 50 ML DISP.SYRIN IV PRN (10:30)
[2020-05-09] MEDS: clonazePAM 0.5 MG TABLET PO PRN ×2 (12:19→21:33)
[2020-05-09] MEDS ORDERED: BISACODYL SUPP (10 MG) 10 MG/SUPP.RECT SUPP.RECT RC PRN (14:00)
[2020-05-09] MEDS ORDERED: MAGNESIUM HYDROXIDE 30 ML UDC PO PRN (14:00)
[2020-05-09] MEDS: DOCUSATE SODIUM 250 MG CAPSULE PO SCH ×2 (14:22→17:29)
[2020-05-09] MEDS: NICOTINE PATCH (14MG) 14 MG PATCH.TD24 TD SCH (17:13)
[2020-05-09] MEDS: ACETAMINOPHEN 650 MG/20.3 ML UDC NG PRN (18:26)
[2020-05-09] MEDS ORDERED: ACETAMINOPHEN 325 MG TABLET PO PRN (18:30)
--- NOTE | 2020-05-09 18:34 | NUR ---
END OF SHIFT NOTE: PT HAD AN UNEVENTFUL DAY. PT WAS ALERT OX3, FORGETFUL AT TIMES. PT ASKED THE SAME QUESTIONS REPEATEDLY THROUGHOUT THE DAY AND FREQUENTLY CALLED OUT AND/OR PUSHED THE CALL LIGHT. RN WAS IN PT'S ROOM AT LEAST 4-6 TIMES AN HOUR ALL DAY. PT C/O CONSTIPATION, MOM AND COLACE GIVEN PER MD ORDERS. PT WANTED HER HOME KLONOPIN ORDERED, RN GAVE KLONOPIN PER MD ORDERS. HYDRALAZINE GIVEN X1 THIS SHIFT PER MD ORDERS. PT HAS TRANSFER ORDERS TO [facility], NO BED ASSIGNED AT THIS TIME. PT CHECKED ON FREQUENTLY BY NURSING STAFF.
--- NOTE | 2020-05-09 19:00 | NUR ---
Received patient awake,alert,converses,coherent and appropriate ,not in any respiratory distress,breathing regular and non labored , with O2 via NC 2l/min. Denies any pain.For possible transfer to Tele when bed available.
[2020-05-09] MEDS: ENOXAPARIN SODIUM 40 MG/0.4 ML DISP.SYRIN SQ SCH (21:02)
--- NOTE | 2020-05-09 21:25 | NUR ---
Patient has bed in Tele RM# [id number].Report given to Adilene BREAUX. [id number] Transferred patient via bed with oxygen 2 L NC, remains stable,awake,alert,not in any distress.
--- NOTE | 2020-05-09 21:45 | NUR ---
garnett room worker notes received patient from icu, awake alert and oriented x 4, respirations even and unlabored with equal rise and fall of chest, denies any pain or discomfort at this time, on 2l via nc tolerating well, patient refused noctural bipap rt made aware, right upper midline intact and patent, no redness, no infiltration present, oriented to staff and call light and kept within reach ,telephone within reach, soto catheter in place yellow in color, discussed plan of care all needs attended will continue to monitor and attend to needs. placed on folder seamer sr with pvc with trigeminy and bigeminy, no distress present.
[2020-05-10] VITALS (8 sets, daily range): BP systolic 141–205; BP diastolic 73–95
--- NOTE | 2020-05-10 01:20 | NUR ---
AUTO SERVICER NOTES RING DROP OFF IN FACILITY SAFE WITH TYPEWRITER OPERATOR AUTOMATIC PT AWARE, RECEIPT IN CHART
[2020-05-10] MEDS: ALBUTEROL FS 2.5 MG/0.5 ML VIAL.NEB NEB SCH ×6 (03:29→23:21)
[2020-05-10] MEDS: methylPREDNISolone SOD SUCC 40 MG/ML VIAL IV SCH ×3 (04:52→21:03)
--- NOTE | 2020-05-10 05:39 | NUR ---
metal turner notes refused to have linens changed states " she wants it done later in the morning". patient remains clean.
--- NOTE | 2020-05-10 06:02 | NUR ---
rn social services notes patient complaint of heart burn indigestion. hospitalist mick made aware new order for maalox prn
[2020-05-10] MEDS: BLOOD SUGAR DIAGNOSTIC 1 EACH STRIP IN SCH ×4 (06:05→22:43)
[2020-05-10] MEDS: INSULIN REGULAR, HUMAN 100 UNIT/ML 3 ML VIAL SQ PRN ×4 (06:07→22:43)
[2020-05-10] MEDS ORDERED: MAG HYDROX/AL HYDROX/SIMETH 30 ML UDC PO PRN (06:30)
--- NOTE | 2020-05-10 06:32 | NUR ---
sheet metal work furnace installer closing notes patient in bed awake alert and oriented x 4, respirations even and unlabored with equal rise and fall of chest, denies any pain or discomfort at this time, on 2l via nc tolerating well, patient refused noctural bipap rt made aware, right upper midline intact and patent, no redness, no infiltration present, call light kept within reach ,telephone within reach, soto catheter in place yellow in color total output 900 ml, patient is able to assist with repositioning and encouraged, discussed plan of care all needs attended, maalox given prn as ordered, will continue to monitor and attend to needs and endorse to next shift. on secured entrance monitor sr 65 with pvc with trigeminy and bigeminy, no distress present. remains comfortable all due mediation given. refused to have linens changes want it done later per pt request.
[2020-05-10 07:52] LABS: HEMATOCRIT 38 % (33-45); HEMOGLOBIN 11.4 g/dL (11.5-14.8); LYMPHOCYTES # (AUTO) 0.6 /CMM (0.8-4.8); LYMPHOCYTES % (AUTO) 5.5 % (20.0-44.0); MEAN CORPUSCULAR HGB CONC 30 g/dl (31.0-36.0); MEAN CORPUSCULAR VOLUME 68 fL (82-100); MONOCYTES # (AUTO) 0.7 /CMM (0.1-1.30); MONOCYTES % (AUTO) 6.3 % (2.0-12.0); NEUTROPHILS # (AUTO) 10.2 /CMM (1.8-8.9); NEUTROPHILS % (AUTO) 88.2 % (43.0-81.0); PLATELET COUNT (AUTO) 122 /CMM (150-450); RED BLOOD CELL COUNT(AUTO) 5.57 MIL/uL (4.0-5.2); WHITE BLOOD COUNT (AUTO) 11.5 K/uL (4.3-11.0)
--- NOTE | 2020-05-10 07:53 | NUR ---
HURRICANE TRACKER OPENING NOTE PATIENT IN BED RESTING COMFORTABLY. PATIENT IN NO ACUTE DISTRESS. NO SOB NOTED. PATIENT BREATHING IS EVEN AND UNLABORED. PATIENT RESPONSIVE TO VERBAL AND TACTILE STIMULI. PATIENT ON CARDIAC MONITORING READING SINUS RHYTHM HR 64. BED ALARM IS ON. SAFETY PRECAUTIONS IN PLACE. PATIENT BED IS LOCKED AND IN LOWEST POSITION. CALL LIGHT WITHIN REACH. WILL CONTINUE TO MONITOR.
[2020-05-10 07:58] LABS: CALCIUM, SERUM 8.7 mg/dL (8.5-10.1); CREATININE 0.5 mg/dL (0.6-1.3); MAGNESIUM 2.3 mg/dL (1.8-2.4); PHOSPHORUS 2.8 mg/dL (2.5-4.9); POTASSIUM 3.8 mmol/L (3.5-5.1)
[2020-05-10] MEDS: NICOTINE PATCH (14MG) 14 MG PATCH.TD24 TD SCH (08:18)
[2020-05-10] MEDS: FLUOXETINE HCL 20 MG CAPSULE PO SCH (08:18)
[2020-05-10] MEDS: DOCUSATE SODIUM 250 MG CAPSULE PO SCH ×2 (08:18→16:17)
[2020-05-10] MEDS: FOLIC ACID 1 MG TABLET PO SCH (08:18)
[2020-05-10] MEDS: ASPIRIN EC 81 MG TABLET.DR PO SCH (08:18)
[2020-05-10] MEDS: hydrALAZINE HCL IV 20 MG VIAL IV PRN ×2 (08:19→16:19)
[2020-05-10 08:51] LABS: LYMPHOCYTES % (MANUAL) 4 % (16-48); MONOCYTES % (MANUAL) 1 % (0-11.0); NEUTROPHILS % (MANUAL) 95 (42-76)
--- NOTE | 2020-05-10 11:45 | NUR ---
SIGN LETTERER NOTE PATIENT IN BED RESTING COMFORTABLY. PATIENT IN NO ACUTE DISTRESS. NO SOB NOTED. PATIENT BREATHING IS EVEN AND UNLABORED. GAVE REPORT TO BOB RN AND ENDORSED ALL CARE TO BOB FOR STEVEN.
--- NOTE | 2020-05-10 12:00 | NUR ---
RN OPENING NOTES RECEIVED PATIENT FROM JOHNNIE. RESTING IN BED COMFORTABLY WITH NO ACUTE DISTRESS NOTED. A/OX4 WITH EPISODES OF CONFUSION. ON TELE MONITOR WITH SR NOTED. SAFETY MAINTAINED, CALL LIGHT WITHIN REACH,WILL CONTINUE TO MONITOR CLOSELY.
--- NOTE | 2020-05-10 13:30 | NUR ---
RN NOTE PATIENT PULLED OUT HER HEARD. CONFUSED, EXPECTING TO BE DISCHARGED TODAY. DR DAHL NOTIFIED, ORDERED ABG AND FOLLOW UP PSYCH CONSULT. WILL FOLLOW UP ON THE ORDERS. SAFETY MAINTAINED, CALL LIGHT WITHIN REACH, WILL CONTINUE TO MONITOR CLOSELY.
[2020-05-10 15:25] LABS: APPEARANCE,URINE SL CLOUDY (CLEAR); BILIRUBIN,URINE NEGATIVE (NEGATIVE); BLOOD, URINE SMALL Ery/uL (NEGATIVE); COLOR,URINE YELLOW (YELLOW); KETONES,URINE NEGATIVE (NEGATIVE); LEUKOCYTE ESTERASE ,URINE SMALL (NEGATIVE); NITRITE, URINE NEGATIVE (NEGATIVE); PH,URINE 7.5 (5.0-8.0); PROTEIN,URINE TRACE mg/dl (NEGATIVE); UGLUCOSE NEGATIVE (NEGATIVE)
[2020-05-10 15:34] LABS: BACTERIA,URINE 4+ /HPF (None Seen); SQUAMOUS EPITHELIAL CELL,UR Few /HPF (None Seen); WBC,URINE 81-100 /HPF (0-3)
[2020-05-10 15:41] LABS: ABG OXYGEN SATURATION 97.1 % (92.0-98.5); ABG PCO2 42.2 mmHg (35.0-45.0); ABG PO2 91.6 mmHg (75.0-100.0); AaDO2 58.2 mmHg; COHb 0.9 % (0.5-1.5); MetHb 0.2 % (0.0-1.5); SITE, ABG Left Radial
[2020-05-10] MEDS: CEPHALEXIN MONOHYDRATE 500 MG CAPSULE PO SCH (16:17)
--- NOTE | 2020-05-10 19:18 | NUR ---
RN CLOSING NOTES PATIENT REMAINED IN STABLE CONDITION DURING MY SHIFT. REFUSED HEARD REINSERTION AND SCD PUMPS ENTIRE SHIFT. BP WENT DOWN AFTER HYDRALAZINE, LATEST BP WAS 162/70. OTHER THAN THAT ALL VITAL SIGNS ARE STABLE. ALL PATIENT NEEDS MET, CALL LIGHT WITHIN REACH, ENDORSED TO PM NURSE FOR STEVEN.
--- NOTE | 2020-05-10 20:00 | NUR ---
ms rn notes Received patient in bed awake alert and oriented x 4, respirations even and unlabored. denies any pain or discomfort at this time, on 2l via nc tolerating well,sating 93%. patient refused noctural bipap rt made aware, right upper midline intact and patent, no redness, no infiltration present, oriented to staff and call light and kept within reach , discussed plan of care all needs attended too. v/s stable afebrile,all due meds given as ordered, will continue to monitor pts.
--- NOTE | 2020-05-10 21:00 | NUR ---
ms rn notes Pts refused Noc bipap pts sating 93-94% 0n o2 at 2liters via nc explai r/b pts still refusing , RT made aware of bipap refusal.
[2020-05-10] MEDS: clonazePAM 0.5 MG TABLET PO PRN (21:02)
[2020-05-10] MEDS: ENOXAPARIN SODIUM 40 MG/0.4 ML DISP.SYRIN SQ SCH (21:04)
--- NOTE | 2020-05-10 22:00 | NUR ---
ms rn notes blood sugar for 10pm is 146 2 units of regular insulin given per sliding scale.will check blood sugar again in am.
--- NOTE | 2020-05-11 | NUR ---
ms rn notes Pts is npo post mn for mri wwo pelvis,instructed pts verbalized understanding. consent signed and checklist done.
--- NOTE | 2020-05-11 01:00 | NUR ---
ms rn notes Pts again offer bipap again pts refused pts sating 95-96% at this time again rt made aware.
--- NOTE | 2020-05-11 01:59 | NUR ---
Pt receive stable alert and awake, pt refused NOC BiPap, pt stable on 2L NC, will continue to monitor Addendum: 05/11/20 at 0201 by JACKELIN TITUS RT Amended: Links added.
[2020-05-11 04:00] VITALS: BP 140/66
[2020-05-11] MEDS: ALBUTEROL FS 2.5 MG/0.5 ML VIAL.NEB NEB SCH ×6 (05:11→23:04)
[2020-05-11] MEDS: methylPREDNISolone SOD SUCC 40 MG/ML VIAL IV SCH ×3 (05:37→20:28)
--- NOTE | 2020-05-11 06:30 | NUR ---
ms rn notes blood sugar for 730am [id number] Pts is npo status for mri pelvis no insulin coverage given d/t npo status .endorse to kristal lamb day shift for continuity of care.pts is stable afebrile.
[2020-05-11] MEDS: INSULIN REGULAR, HUMAN 100 UNIT/ML 3 ML VIAL SQ PRN ×4 (06:52→21:48)
[2020-05-11] MEDS: BLOOD SUGAR DIAGNOSTIC 1 EACH STRIP IN SCH ×4 (06:53→23:23)
[2020-05-11 07:05] LABS: CALCIUM, SERUM 8.7 mg/dL (8.5-10.1); CREATININE 0.5 mg/dL (0.6-1.3); MAGNESIUM 2.2 mg/dL (1.8-2.4); PHOSPHORUS 3.4 mg/dL (2.5-4.9); POTASSIUM 3.1 mmol/L (3.5-5.1)
--- NOTE | 2020-05-11 07:38 | NUR ---
RN OPENING NOTES RECEIVED PATIENT RESTING IN BED COMFORTABLY WITH NO ACUTE DISTRESS NOTED. ALERT AND ORIENTED X4. CALL LIGHT WITHIN REACH,WILL CONTINUE TO MONITOR.
[2020-05-11 08:12] LABS: BASOPHILS % (AUTO) 0.1 % (0.0-2.0); HEMATOCRIT 39 % (33-45); HEMOGLOBIN 12.1 g/dL (11.5-14.8); LYMPHOCYTES # (AUTO) 0.4 /CMM (0.8-4.8); LYMPHOCYTES % (AUTO) 2.5 % (20.0-44.0); MEAN CORPUSCULAR HGB CONC 31 g/dl (31.0-36.0); MEAN CORPUSCULAR VOLUME 67 fL (82-100); MONOCYTES # (AUTO) 1.2 /CMM (0.1-1.30); MONOCYTES % (AUTO) 6.7 % (2.0-12.0); NEUTROPHILS # (AUTO) 15.8 /CMM (1.8-8.9); NEUTROPHILS % (AUTO) 90.7 % (43.0-81.0); PLATELET COUNT (AUTO) 116 /CMM (150-450); WHITE BLOOD COUNT (AUTO) 17.4 K/uL (4.3-11.0)
[2020-05-11] MEDS: NICOTINE PATCH (14MG) 14 MG PATCH.TD24 TD SCH (08:25)
[2020-05-11] MEDS: ASPIRIN EC 81 MG TABLET.DR PO SCH (08:25)
[2020-05-11] MEDS: CEPHALEXIN MONOHYDRATE 500 MG CAPSULE PO SCH ×2 (08:25→16:47)
[2020-05-11] MEDS: DOCUSATE SODIUM 250 MG CAPSULE PO SCH ×2 (08:25→16:47)
[2020-05-11] MEDS: FLUOXETINE HCL 20 MG CAPSULE PO SCH (08:26)
[2020-05-11] MEDS: FOLIC ACID 1 MG TABLET PO SCH (08:26)
--- NOTE | 2020-05-11 11:37 | NUR ---
MS/RN NOTES PATIENT IS OUT IN THE UNIT. PLYCOR OPERATOR BY SACK MAKER FOR MRI PELVES.
[2020-05-11] MEDS: POTASSIUM CL. PREMIX PERIPHER. 50 ML IV SCH ×4 (12:59→19:32)
[2020-05-11] MEDS ORDERED: GADOTERIDOL 279.3 MG/ML VIAL IV ONE (16:57)
--- NOTE | 2020-05-11 19:43 | NUR ---
MS/RN CLOSING NOTES PATIENT IS ON BED. ALERT AND ORIENTED X4. PATIENT WITH OXYGEN 2L VIA NASAL CANNULA IN PLACED. PATIENT IN NO APPARENT RESPIRATORY DISTRESS NOTED. PATIENT DENIES PAIN AT THIS TIME. IV ACCESS AT RIGHT UPPER ARM MIDLINE PATENT AND INTACT. SEEN AND EXAMINED BY MD WITH ORDERS MADE AND CARRIED OUT. ALL DUE MEDICATION WAS GIVEN. CHECKED PATIENT EVERY 2 HOURS. SAFETY PRECAUTION IN PLACED . BED IN LOWEST POSITION AND LOCKED. SIDE RAILS UP X2. CALL LIGHT WITHIN REACH. WILL ENDORSED TO ULTRASOUND TESTER FOR STEVEN.
[2020-05-11 20:00] VITALS: BP 156/85
--- NOTE | 2020-05-11 20:00 | NUR ---
MS/RN OPENING NOTE Patient awake in bed. A/O x4. PERRLA. Breathing even, unlabored, ronchi noted in bilateral lobes. Patient denies pain. No signs of acute distress or SOB. IV site AMAURI midline patent and intact, no signs of infiltration. Nasal cannula 2 l/min, O2 saturation 98%. Able to move extremities well, strength within normal limits. Abdomen round soft, non-tender. Bowel sounds normoactive in all quadrants. Pitting edema 2+ in bilateral lower extremities. Skin warm, pink, dry, appropriate for ethnicity. Pedal pulse 2+, equal. Bed in low position, wheels locked, side rails up x4, call light within reach.
[2020-05-11] MEDS: ENOXAPARIN SODIUM 40 MG/0.4 ML DISP.SYRIN SQ SCH (20:27)
--- NOTE | 2020-05-11 21:32 | NUR ---
Pt receive stable alert and awake, pt refused NOC BiPap, pt stable on 2L NC, will continue to monitor. RN notified. was told to wake her and ask if she wants further breathing tx.
[2020-05-11] MEDS: clonazePAM 0.5 MG TABLET PO PRN (21:46)
[2020-05-12] MEDS: ALBUTEROL FS 2.5 MG/0.5 ML VIAL.NEB NEB SCH ×5 (02:39→15:30)
[2020-05-12] MEDS: methylPREDNISolone SOD SUCC 40 MG/ML VIAL IV SCH ×2 (04:05→12:43)
--- NOTE | 2020-05-12 06:00 | NUR ---
RN NOTES PT. CALLED HER AND INFORMED HIM THAT HE'S GOING HOME, WENT DOWNSTAIRS TO TALK TO HER AND EXPLAINED EVERYTHING THAT IT'S NOT SAFE TO GO HOME BECAUSE SHE NEEDS OXYGEN ON THE WAY HOME. THE AGREED AND WENT HOME . TALKED TO THE PATIENT AND EXPLAINED THE IMPORTANCE AND BENEFITS OF WAITING FOR HER DOCTOR THIS MORNING SO SHE CAN TALK TO HER DOCTOR AND THE DOCTOR WILL EXPLAINED EVERYTHING THAT SHE NEEDS TO DO AT HOME. PT. WENT BACK TO HER ROOM
[2020-05-12] MEDS: INSULIN REGULAR, HUMAN 100 UNIT/ML 3 ML VIAL SQ PRN ×2 (06:13→11:14)
--- NOTE | 2020-05-12 06:19 | NUR ---
MS/RN CLOSING NOTE Patient awake in bed. A/O x4. PERRLA. Breathing even, unlabored. Patient denies any pain, fever, chills. Skin warm, pink, dry, appropriate for ethnicity. Bowel sounds normoactive in all quadrants. No bowel movement this shift. Patient denies nausea or vomiting. Patient voids via bed amezquita. Urine output yellow, clear, no sediment. IV site AMAURI midline patent and intact. No signs of infiltration. Morning glucose 184. Gave 3 units per sliding scale. Bed in low position, wheels locked, side rails up x2, call light within reach. Will endorse to oncoming nurse.
[2020-05-12] MEDS: BLOOD SUGAR DIAGNOSTIC 1 EACH STRIP IN SCH ×2 (07:49→11:17)
--- NOTE | 2020-05-12 07:50 | NUR ---
MS/RN OPENING NOTES RECEIVED PATIENT ON BED. ALERT AND ORIENTED X4. PATIENT WITH OXYGEN 2L VIA NASAL CANNULA IN PLACED. PATIENT IN NO APPARENT RESPIRATORY DISTRESS NOTED. PATIENT DENIES PAIN AT THIS TIME. IV ACCESS AT RIGHT UPPER ARM MIDLINE PATENT AND INTACT. SAFETY PRECAUTION IN PLACED . BED IN LOWEST POSITION AND LOCKED. SIDE RAILS UP X2. CALL LIGHT WITHIN REACH. WILL CONTINUE TO MONITOR.
[2020-05-12 08:00] VITALS: BP 154/71
[2020-05-12] MEDS: ASPIRIN EC 81 MG TABLET.DR PO SCH (08:17)
[2020-05-12] MEDS: FLUOXETINE HCL 20 MG CAPSULE PO SCH (08:17)
[2020-05-12] MEDS: NICOTINE PATCH (14MG) 14 MG PATCH.TD24 TD SCH (08:17)
[2020-05-12] MEDS: CEPHALEXIN MONOHYDRATE 500 MG CAPSULE PO SCH ×2 (08:17→16:24)
[2020-05-12] MEDS: FOLIC ACID 1 MG TABLET PO SCH (08:18)
[2020-05-12] MEDS: DOCUSATE SODIUM 250 MG CAPSULE PO SCH (08:23)
[2020-05-12 10:04] LABS: BASOPHILS % (AUTO) 0.1 % (0.0-2.0); HEMATOCRIT 41 % (33-45); HEMOGLOBIN 12.4 g/dL (11.5-14.8); LYMPHOCYTES # (AUTO) 0.6 /CMM (0.8-4.8); LYMPHOCYTES % (AUTO) 3.7 % (20.0-44.0); MEAN CORPUSCULAR HGB CONC 31 g/dl (31.0-36.0); MEAN CORPUSCULAR VOLUME 68 fL (82-100); MONOCYTES # (AUTO) 0.7 /CMM (0.1-1.30); MONOCYTES % (AUTO) 4.1 % (2.0-12.0); NEUTROPHILS # (AUTO) 15.3 /CMM (1.8-8.9); NEUTROPHILS % (AUTO) 92.1 % (43.0-81.0); PLATELET COUNT (AUTO) 128 /CMM (150-450); RED BLOOD CELL COUNT(AUTO) 5.98 MIL/uL (4.0-5.2); WHITE BLOOD COUNT (AUTO) 16.7 K/uL (4.3-11.0)
[2020-05-12 10:32] LABS: CALCIUM, SERUM 8.6 mg/dL (8.5-10.1); CREATININE 0.8 mg/dL (0.6-1.3); PHOSPHORUS 2.5 mg/dL (2.5-4.9); POTASSIUM 3.6 mmol/L (3.5-5.1)
--- NOTE | 2020-05-12 11:53 | NUR ---
MS/NAMITA NOTES PATIENT COMPLAINED OF HEADACHE, TYLENOL 650MG P.O. WAS GIVEN. WILL CONTINUE TO MONITOR. Addendum: 05/12/20 at 1547 by NICOLE RAMIREZ RN ERROR
[2020-05-12] MEDS ORDERED: Folic Acid PO (12:21)
[2020-05-12] MEDS ORDERED: ASPI-1152 PO (12:21)
[2020-05-12] MEDS ORDERED: ENOX40DI SQ (12:21)
[2020-05-12] MEDS ORDERED: DOCU250C14 PO (12:21)
[2020-05-12] MEDS ORDERED: CEPH500C2 PO (12:21)
[2020-05-12] MEDS ORDERED: METH4TAB3 PO (12:21)
[2020-05-12] MEDS ORDERED: FLUO20CA42 PO (12:21)
--- NOTE | 2020-05-12 14:37 | NUR ---
MS/RN NOTES PATIENT BLOOD PRESSURE 173/92 HR 92 HYDRALAZINE 10MG IV WAS GIVEN. WILL CONTINUE TO MONITOR.
[2020-05-12 14:38] VITALS: BP 173/92
[2020-05-12] MEDS: hydrALAZINE HCL IV 20 MG VIAL IV PRN (14:38)
--- NOTE | 2020-05-12 15:47 | NUR ---
MS/RN NOTES PATIENT COMPLAINED OF HEADACHE, TYLENOL 650MG P.O. WAS GIVEN. WILL CONTINUE TO MONITOR.
--- NOTE | 2020-05-12 17:02 | NUR ---
MS/RN NOTES PATIENT IS ALERT AND ORIENTED X4. PATIENT DENIES PAIN AT THIS TIME. IN ROOM AIR AND SATURATION IS AT 96%. RESPIRATION REGULAR AND UNLABORED. PATIENT IN NO APPARENT RESPIRATORY DISTRESS. SEEN AND EXAMINED BY MD WITH ORDERS MADE AND CARRIED OUT. ALL DUE MEDICATION WAS GIVEN. PATIENT DISCHARGED AT 1636. PATIENT WAS GIVEN DISCHARGED INSTRUCTIONS AND PATIENT VERBALIZED UNDERSTANDING. THE PATIENT LEFT THE HOSPITAL IN STABLE CONDITION. PATIENT BLOCKER HAND BY 2 EMT VIA AMBULANCE.
== END 2020-05-12 16:37 | disposition home health service (06) | DRG 917 ==
LOC: ER 11:09 → TELE 15:15 → ICU 05-04 12:09 → TELE 05-09 21:42 → MED 05-10 14:35
PROVIDERS: ADMIT Registered Nurse; ATTEND Hospitalist
PROC: 05H933Z Insertion of Infusion Device into Right Brachial Vein, Percutaneous Approach (ICD-10-PCS; principal; 2020-05-04)
PROC: 5A09357 Assistance with Respiratory Ventilation, Less than 24 Consecutive Hours, Continuous Positive Airway Pressure (ICD-10-PCS; principal; 2020-05-04)
PROC: 5A1955Z Respiratory Ventilation, Greater than 96 Consecutive Hours (ICD-10-PCS; 2020-05-05)
PROC: 0BH17EZ Insertion of Endotracheal Airway into Trachea, Via Natural or Artificial Opening (ICD-10-PCS; 2020-05-05)
DX: T42.4X1A Poisoning by benzodiazepines, accidental (unintentional), initial encounter (principal); I21.A1 Myocardial infarction type 2; G92 Toxic encephalopathy; J96.22 Acute and chronic respiratory failure with hypercapnia; J96.21 Acute and chronic respiratory failure with hypoxia; N17.0 Acute kidney failure with tubular necrosis; E44.0 Moderate protein-calorie malnutrition; M62.82 Rhabdomyolysis; I50.32 Chronic diastolic (congestive) heart failure; J98.11 Atelectasis; E66.2 Morbid (severe) obesity with alveolar hypoventilation; F11.20 Opioid dependence, uncomplicated; F33.2 Major depressive disorder, recurrent severe without psychotic features; N39.0 Urinary tract infection, site not specified; Y92.009 Unspecified place in unspecified non-institutional (private) residence as the place of occurrence of the external cause; F41.9 Anxiety disorder, unspecified; Z91.19 Patient's noncompliance with other medical treatment and regimen; Z90.710 Acquired absence of both cervix and uterus; Z85.42 Personal history of malignant neoplasm of other parts of uterus; Z79.84 Long term (current) use of oral hypoglycemic drugs; I11.0 Hypertensive heart disease with heart failure; I25.2 Old myocardial infarction; I27.20 Pulmonary hypertension, unspecified; Z79.51 Long term (current) use of inhaled steroids; Z79.899 Other long term (current) drug therapy; G89.4 Chronic pain syndrome; Z68.39 Body mass index [BMI] 39.0-39.9, adult; T40.601A Poisoning by unspecified narcotics, accidental (unintentional), initial encounter; F17.200 Nicotine dependence, unspecified, uncomplicated; K42.9 Umbilical hernia without obstruction or gangrene; K59.00 Constipation, unspecified; K76.0 Fatty (change of) liver, not elsewhere classified; B96.89 Other specified bacterial agents as the cause of diseases classified elsewhere; E86.0 Dehydration; E87.5 Hyperkalemia; R19.00 Intra-abdominal and pelvic swelling, mass and lump, unspecified site; J44.9 Chronic obstructive pulmonary disease, unspecified; E83.39 Other disorders of phosphorus metabolism; E78.5 Hyperlipidemia, unspecified; E11.9 Type 2 diabetes mellitus without complications; D69.6 Thrombocytopenia, unspecified; F39 Unspecified mood [affective] disorder; E83.41 Hypermagnesemia; I70.0 Atherosclerosis of aorta
CPT/HCPCS: 31720; 36415; 36600; 70450-TC; 71045-TC; 72197-TC; 76856-TC; 80048-TC; 80053-TC; 80061-TC; 80076-TC; 80305; 81000-TC; 82533; 82550-TC; 82553; 82803-TC; 82962-TC; 83735-TC; 84100-TC; 84443-TC; 84484-TC; 85025-TC; 85730-TC; 86304; 87081-TC; 87086-TC; 87186-TC; 92521; 93307-TC; 94002-TC; 94003-TC; 94660; 94760-TC; 94799-TC; A9563; A9579; G0378; G0480; J0360; J1630; J1650; J1815; J2060; J2920; J3480; J3490; J7030; J7040; J7050

== ENCOUNTER 2020-06-03 14:54 | Emergency (ER) | payer OTHER ==
[~2020-06-03] VITALS: Ht 167.6 cm; Wt 107.5 kg
[~2020-06-03 14:54] MED LIST changes: +ASPI-1420 PO; +CEPH500C2 PO; -CLON2TAB11 PO; -DICL50TA7 PO; +DOCU250C14 PO; +ENOX40DI SQ; +FLUO20CA42 PO; +Folic Acid PO; +METH4TAB3 PO; -TEMA30CA PO
--- NOTE | 2020-06-03 15:13 | NUR ---
[facility] RA 89 From Home"frequent 911 calls - fell out of bed today patient nor unable to care for herself" transported on [employer]. Patient a/ox2-3, placed on o2 at 2lpm via NC, per patient she uses o2 at home. Attached to monitors.
[2020-06-03 15:39] LABS: ABG BASE EXCESS 8.1 mmol/L; ABG OXYGEN SATURATION 92.1 % (92.0-98.5); ABG PCO2 51.5 mmHg (35.0-45.0); ABG PH 7.433 (7.350-7.450); ABG PO2 65.5 mmHg (75.0-100.0); AaDO2 73.4 mmHg; COHb 1.3 % (0.5-1.5); MetHb 0.4 % (0.0-1.5); O2Hb 90.5 % (94.0-97.0); SITE, ABG Right Radial; VENT MODE, BG NC 2 L
[2020-06-03 16:06] LABS: BASOPHILS % (AUTO) 0.6 % (0.0-2.0); EOSINOPHILS % (AUTO) 2.3 % (0.0-6.0); HEMATOCRIT 34 % (33-45); HEMOGLOBIN 10.3 g/dL (11.5-14.8); LYMPHOCYTES # (AUTO) 1.4 /CMM (0.8-4.8); LYMPHOCYTES % (AUTO) 31.4 % (20.0-44.0); MEAN CORPUSCULAR HGB CONC 31 g/dl (31.0-36.0); MEAN CORPUSCULAR VOLUME 68 fL (82-100); MONOCYTES # (AUTO) 0.5 /CMM (0.1-1.30); MONOCYTES % (AUTO) 12.1 % (2.0-12.0); NEUTROPHILS # (AUTO) 2.4 /CMM (1.8-8.9); NEUTROPHILS % (AUTO) 53.6 % (43.0-81.0); PLATELET COUNT (AUTO) 141 /CMM (150-450); RED BLOOD CELL COUNT(AUTO) 4.98 MIL/uL (4.0-5.2); WHITE BLOOD COUNT (AUTO) 4.4 K/uL (4.3-11.0)
[2020-06-03 16:18] LABS: APPEARANCE,URINE Clear (CLEAR); BILIRUBIN,URINE Negative (NEGATIVE); BLOOD, URINE Negative Ery/uL (NEGATIVE); COLOR,URINE Yellow (YELLOW); KETONES,URINE Negative (NEGATIVE); LEUKOCYTE ESTERASE ,URINE Negative (NEGATIVE); NITRITE, URINE Negative (NEGATIVE); PH,URINE 8.5 (5.0-8.0); PROTEIN,URINE Negative (NEGATIVE); UGLUCOSE Negative (NEGATIVE)
[2020-06-03 16:26] LABS: ACETAMINOPHEN < 2 ug/ml (10-30); ALANINE AMINOTRANSFERASE 23 U/L (12-78); ALBUMIN 2.5 g/dL (3.4-5.0); ALCOHOL, BLOOD < 3 mg/dL (0-0); ALKALINE PHOSPHATASE 101 U/L (46-116); ASPARTATE AMINOTRANSFERASE 24 U/L (15-37); BILIRUBIN,DIRECT 0.3 mg/dL (0.0-0.2); BILIRUBIN,TOTAL 0.8 mg/dL (0.2-1.0); CALCIUM, SERUM 8.7 mg/dL (8.5-10.1); CARBON DIOXIDE 34 mmol/L (21-32); CHLORIDE 104 mmol/L (98-107); CREATININE 0.5 mg/dL (0.6-1.3); GLUCOSE 120 mg/dL (74-106); POTASSIUM 3.8 mmol/L (3.5-5.1); SALICYLATE < 2.8 mg/dL (2.8-20.0); SODIUM SERUM 141 mmol/L (136-145); TOTAL PROTEIN, SERUM 6.4 g/dL (6.4-8.2); UREA NITROGEN, BLOOD 11 mg/dL (7-18)
[2020-06-03 16:27] LABS: SERUM AMMONIA 24 umol/L (11-32)
[2020-06-03 16:28] LABS: BACTERIA,URINE Few /HPF (None Seen); RBC,URINE 0-2 /HPF (0-2); SQUAMOUS EPITHELIAL CELL,UR Few /HPF (None Seen); WBC,URINE 0-2 /HPF (0-3)
--- NOTE | 2020-06-03 16:30 | NUR ---
PATIENT RESTING, NO DISTRESS NOTED, DENIES PAIN AT THIS TIME.
[2020-06-03 17:12] LABS: BAND % (MANUAL) 3 % (0.0-5.0); LYMPHOCYTES % (MANUAL) 30 % (16-48); MONOCYTES % (MANUAL) 10 % (0-11.0); NEUTROPHILS % (MANUAL) 57 (42-76)
--- NOTE | 2020-06-03 17:35 | NUR ---
SPOKE TO , WILL CERTIFIED MASTER SAFE TECHNICIAN THE PATIENT.
[2020-06-03 18:11] VITALS: BP 150/88
--- NOTE | 2020-06-03 18:11 | NUR ---
IV removed. Catheter intact and site benign. Pressure and 4x4 applied to site. No bleeding noted.Patient discharged to home in stable condition. Assisted to wheelchair brought by . Written and verbal after care instructions given. Patient verbalizes understanding of instruction.
[2020-06-03 18:27] LABS: THYROID STIMULATING HORMONE 0.685 uIU/mL (0.358-3.74)
== END 2020-06-03 18:31 | disposition home or self-care (01) ==
LOC: ER 14:54
DX: Z04.3 Encounter for examination and observation following other accident (principal); R29.6 Repeated falls; E66.01 Morbid (severe) obesity due to excess calories; Z68.38 Body mass index [BMI] 38.0-38.9, adult; J96.10 Chronic respiratory failure, unspecified whether with hypoxia or hypercapnia; Z99.81 Dependence on supplemental oxygen; M50.021 Cervical disc disorder at C4-C5 level with myelopathy; M50.121 Cervical disc disorder at C4-C5 level with radiculopathy; M48.02 Spinal stenosis, cervical region; Z79.899 Other long term (current) drug therapy; Z79.82 Long term (current) use of aspirin; F17.210 Nicotine dependence, cigarettes, uncomplicated; Z85.42 Personal history of malignant neoplasm of other parts of uterus; E11.9 Type 2 diabetes mellitus without complications; I11.0 Hypertensive heart disease with heart failure; F41.9 Anxiety disorder, unspecified; I25.2 Old myocardial infarction; R00.0 Tachycardia, unspecified; D53.9 Nutritional anemia, unspecified
CPT/HCPCS: 36415; 36600; 51702; 70450; 71045; 72125; 80048; 80076; 80305; 80307; 80329; 81001; 82140; 82803; 82962; 84443; 84484; 85025; 85730; 87426; 93005; 99285; C9803; G0480; 81000-TC

== ENCOUNTER 2024-04-20 16:51 | Inpatient (IN) | payer MEDICARE, OTHER ==
[~2024-04-20] VITALS: Ht 162.6 cm; Wt 80.7 kg
[2024-04-20] MEDS ORDERED: HYDROCODONE/APAP 5/325MG TABLET ONE (17:16)
[2024-04-20] MEDS: HYDROCODONE/APAP 5/325MG TABLET PO ONE (17:20)
[2024-04-20 17:43] LABS: BASOPHILS # (AUTO) 0.2 K/uL (0.0-0.2); BASOPHILS % (AUTO) 3.1 % (0.0-2.0); EOSINOPHILS # (AUTO) 0.1 K/uL (0.0-0.7); HEMATOCRIT 33 % (33-45); HEMOGLOBIN 10.3 g/dL (11.5-14.8); LYMPHOCYTES # (AUTO) 2.3 K/uL (0.8-4.8); LYMPHOCYTES % (AUTO) 33.8 % (20.0-44.0); MEAN CORPUSCULAR HEMOGLOBIN 20 PG (26.0-33.0); MEAN CORPUSCULAR HGB CONC 31 g/dl (31.0-36.0); MEAN CORPUSCULAR VOLUME 64 fL (82-100); MONOCYTES # (AUTO) 0.3 K/uL (0.1-1.30); MONOCYTES % (AUTO) 4.2 % (2.0-12.0); NEUTROPHILS # (AUTO) 3.9 K/uL (1.8-8.9); NEUTROPHILS % (AUTO) 57.9 % (43.0-81.0); PLATELET COUNT (AUTO) 165 K/uL (150-450); RED BLOOD CELL COUNT(AUTO) 5.09 MIL/uL (4.0-5.2); RED CELL DISTRIBUTION WIDTH 16.7 % (11.5-15.0); WHITE BLOOD COUNT (AUTO) 6.7 K/uL (4.3-11.0)
[2024-04-20 17:57] LABS: ALANINE AMINOTRANSFERASE 28 U/L (12-78); ALBUMIN 2.9 g/dL (3.4-5.0); ALCOHOL, BLOOD < 3 mg/dL (0-10); ALKALINE PHOSPHATASE 80 U/L (46-116); ASPARTATE AMINOTRANSFERASE 23 U/L (15-37); BILIRUBIN,DIRECT 0.2 mg/dL (0.0-0.2); BILIRUBIN,TOTAL 0.4 mg/dL (0.2-1.0); CALCIUM, SERUM 8.6 mg/dL (8.5-10.1); CARBON DIOXIDE 30 mmol/L (21-32); CHLORIDE 103 mmol/L (98-107); GLUCOSE 121 mg/dL (74-106); POTASSIUM 3.9 mmol/L (3.5-5.1); SODIUM SERUM 137 mmol/L (136-145); TOTAL PROTEIN, SERUM 6.3 g/dL (6.4-8.2); UREA NITROGEN, BLOOD 31 mg/dL (7-18)
[2024-04-20 18:00] LABS: APPEARANCE,URINE Cloudy (CLEAR); BILIRUBIN,URINE Negative (NEGATIVE); BLOOD, URINE Trace-lysed Ery/uL (NEGATIVE); COLOR,URINE YELLOW (YELLOW); KETONES,URINE Negative (NEGATIVE); LEUKOCYTE ESTERASE ,URINE Moderate (NEGATIVE); NITRITE, URINE Negative (NEGATIVE); PROTEIN,URINE Negative (NEGATIVE); UGLUCOSE Negative (NEGATIVE); UROBILINOGEN,URINE 0.2 EU/dL (0.2)
[2024-04-20 18:20] LABS: AMPHETAMINE, URINE NEGATIVE (NEGATIVE); BARBITURATE, URINE NEGATIVE (NEGATIVE); COCCAINE, URINE NEGATIVE (NEGATIVE); OPIATE, URINE NEGATIVE (NEGATIVE); PHENCYCLIDINE SCREEN,URINE NEGATIVE (NEGATIVE)
[2024-04-20 18:24] LABS: BENZODIAZEPINE, URINE POSITIVE (NEGATIVE); CANNABINOID, URINE POSITIVE (NEGATIVE)
[2024-04-20 18:34] LABS: ADD URINE CULTURE YES; BACTERIA,URINE Many /HPF (None Seen); WBC,URINE 81-100 /HPF (0-3)
[2024-04-20 18:35] LABS: SQUAMOUS EPITHELIAL CELL,UR Few /HPF (None Seen)
[2024-04-20 19:49] LABS: EOSINOPHILS % (MANUAL) 5 % (0-4); LYMPHOCYTES % (MANUAL) 41 % (16-48); MONOCYTES % (MANUAL) 9 % (0-11.0); NEUTROPHILS % (MANUAL) 45 (42-76); PLATELET ESTIMATE ADEQUATE
[2024-04-20 19:50] LABS: ANISOCYTOSIS 1+
[2024-04-20] MEDS ORDERED: CEFTRIAXONE 1GM BAG (ER ONLY) 50 ML IV ONE (20:20)
[2024-04-20] MEDS: CEFTRIAXONE 1GM BAG (ER ONLY) 1 GM/50 ML PIGGYBACK IV ONE (20:22)
[2024-04-20] MEDS ORDERED: Z GUARD REMEDY 4 OZ OINT TP PRN (20:30)
[2024-04-20] MEDS ORDERED: ONDANSETRON HCL/PF 4 MG/2 ML VIAL IVP PRN (20:30)
[2024-04-20] MEDS ORDERED: MAGNESIUM HYDROXIDE 30 ML UDC PO PRN (20:30)
[2024-04-20] MEDS ORDERED: ACETAMINOPHEN 325 MG TABLET PO PRN (20:30)
[2024-04-20] MEDS ORDERED: ALBUTEROL FS 2.5 MG/0.5 ML VIAL.NEB NEB PRN (21:00)
[2024-04-20] MEDS ORDERED: IPRATROPIUM NEB FS 0.5 MG/2.5 ML AMPUL.NEB NEB PRN (21:00)
[2024-04-20 21:10] VITALS: BP 96/55; TEMP 97.9; O2SAT 100
[2024-04-20 21:21] VITALS: O2SAT 98
[2024-04-20] MEDS ORDERED: DEXTROSE 50%-WATER 50 ML DISP.SYRIN IV PRN (21:30)
[2024-04-20] MEDS: ENOXAPARIN SODIUM 40 MG/0.4 ML DISP.SYRIN SQ SCH (22:18)
[2024-04-20] MEDS: BLOOD SUGAR DIAGNOSTIC 1 EACH STRIP IN SCH (22:30)
[2024-04-20] MEDS: INSULIN REGULAR, HUMAN 100 UNIT/ML 3 ML VIAL SQ PRN (22:32)
[2024-04-20] MEDS: ZOLPIDEM TARTRATE 5 MG TABLET PO PRN (22:48)
[2024-04-21] MEDS ORDERED: MORPHINE SULFATE INJ 2 MG/ML DISP.SYRIN IV ONE (01:00)
[2024-04-21 08:00] VITALS: BP 103/69; TEMP 98.1; O2SAT 100
[2024-04-21 09:36] LABS: BASOPHILS % (AUTO) 0.4 % (0.0-2.0); EOSINOPHILS # (AUTO) 0.1 K/uL (0.0-0.7); EOSINOPHILS % (AUTO) 2.2 % (0.0-6.0); HEMATOCRIT 30 % (33-45); HEMOGLOBIN 9.6 g/dL (11.5-14.8); LYMPHOCYTES # (AUTO) 1.9 K/uL (0.8-4.8); LYMPHOCYTES % (AUTO) 39.8 % (20.0-44.0); MEAN CORPUSCULAR HEMOGLOBIN 21 PG (26.0-33.0); MEAN CORPUSCULAR HGB CONC 31 g/dl (31.0-36.0); MEAN CORPUSCULAR VOLUME 65 fL (82-100); MONOCYTES # (AUTO) 0.5 K/uL (0.1-1.30); NEUTROPHILS # (AUTO) 2.2 K/uL (1.8-8.9); NEUTROPHILS % (AUTO) 46.6 % (43.0-81.0); PLATELET COUNT (AUTO) 160 K/uL (150-450); RED BLOOD CELL COUNT(AUTO) 4.67 MIL/uL (4.0-5.2); RED CELL DISTRIBUTION WIDTH 17.1 % (11.5-15.0); WHITE BLOOD COUNT (AUTO) 4.8 K/uL (4.3-11.0)
[2024-04-21 09:50] LABS: CALCIUM, SERUM 9.1 mg/dL (8.5-10.1); CREATININE 0.9 mg/dL (0.6-1.3); MAGNESIUM 2.3 mg/dL (1.8-2.4); PHOSPHORUS 3.9 mg/dL (2.5-4.9); POTASSIUM 3.9 mmol/L (3.5-5.1)
[2024-04-21] MEDS: GABAPENTIN 300 MG CAPSULE PO SCH (09:59)
[2024-04-21] MEDS: PANTOPRAZOLE 40 MG VIAL IV SCH (10:16)
[2024-04-21] MEDS: FOLIC ACID 1 MG TABLET PO SCH (10:16)
[2024-04-21] MEDS: NICOTINE PATCH (14MG) 14 MG PATCH.TD24 TD SCH (10:16)
[2024-04-21] MEDS: BENZTROPINE MESYLATE (1 MG) 1 MG TABLET PO SCH (10:17)
[2024-04-21] MEDS: ASPIRIN EC 81 MG TABLET.DR PO SCH (10:17)
[2024-04-21] MEDS: DOCUSATE SODIUM 250 MG CAPSULE PO SCH (10:17)
[2024-04-21] MEDS: FLUOXETINE HCL 20 MG CAPSULE PO SCH (10:17)
[2024-04-21] MEDS: HYDROCODONE/APAP 5/325MG TABLET PO PRN (10:29)
[2024-04-21] MEDS ORDERED: NICO-762 TD (11:29)
[2024-04-21] MEDS ORDERED: GABA300C PO (11:29)
[2024-04-21] MEDS ORDERED: MULT-213 PO (11:29)
[2024-04-21] MEDS ORDERED: MONT10TA22 PO (11:29)
[2024-04-21] MEDS ORDERED: TRAZ-257 PO (11:29)
[2024-04-21] MEDS ORDERED: CLON2TAB11 PO (11:29)
[2024-04-21] MEDS ORDERED: ACET-868 PO (11:29)
[2024-04-21] MEDS ORDERED: LOSA100T31 PO (11:29)
[2024-04-21] MEDS ORDERED: SENN8.6T19 PO (11:29)
[2024-04-21] MEDS ORDERED: IPRA3AMP22 IH (11:29)
[2024-04-21] MEDS ORDERED: MIRT-121 PO (11:29)
[2024-04-21] MEDS ORDERED: ARGI1POW13 PO (11:29)
[2024-04-21] MEDS ORDERED: CYCL10TA9 PO (11:29)
[2024-04-21] MEDS ORDERED: HYDR25TA4 PO (11:29)
[2024-04-21] MEDS ORDERED: ASCO-352 PO (11:29)
[2024-04-21] MEDS ORDERED: DOCU100T2 PO (11:29)
[2024-04-21] MEDS ORDERED: IBUP-1490 PO (11:29)
[2024-04-21 12:04] LABS: THYROID STIMULATING HORMONE 2.41 uIU/mL (0.358-3.74)
[2024-04-21 16:00] VITALS: BP 107/62; TEMP 98.2; O2SAT 96
[2024-04-21 20:00] VITALS: BP 94/60; TEMP 97.8; O2SAT 100
[2024-04-21] MEDS: CEFTRIAXONE 1 G VIAL IM SCH (21:58)
[2024-04-21] MEDS: QUETIAPINE FUMARATE 100 MG TABLET PO SCH (22:13)
[2024-04-21] MEDS: ATORVASTATIN 10 MG TABLET PO SCH (22:13)
[2024-04-22 07:00] VITALS: BP 78/51; TEMP 97.7; O2SAT 97
[2024-04-22 07:50] VITALS: BP 92/56; TEMP 97.9; O2SAT 96
[2024-04-22 12:11] LABS: FOLIC ACID 7.1 ng/mL (>3.0)
[2024-04-22 12:34] LABS: CALCIUM, SERUM 8.6 mg/dL (8.5-10.1); CREATININE 0.8 mg/dL (0.6-1.3); PHOSPHORUS 3.7 mg/dL (2.5-4.9); POTASSIUM 4.2 mmol/L (3.5-5.1)
[2024-04-22 13:18] LABS: BASOPHILS % (AUTO) 0.4 % (0.0-2.0); EOSINOPHILS # (AUTO) 0.1 K/uL (0.0-0.7); EOSINOPHILS % (AUTO) 1.7 % (0.0-6.0); HEMATOCRIT 27 % (33-45); HEMOGLOBIN 8.9 g/dL (11.5-14.8); LYMPHOCYTES # (AUTO) 1.9 K/uL (0.8-4.8); LYMPHOCYTES % (AUTO) 39.8 % (20.0-44.0); MEAN CORPUSCULAR HEMOGLOBIN 21 PG (26.0-33.0); MEAN CORPUSCULAR HGB CONC 33 g/dl (31.0-36.0); MEAN CORPUSCULAR VOLUME 65 fL (82-100); MONOCYTES # (AUTO) 0.6 K/uL (0.1-1.30); MONOCYTES % (AUTO) 12.9 % (2.0-12.0); NEUTROPHILS # (AUTO) 2.1 K/uL (1.8-8.9); NEUTROPHILS % (AUTO) 45.2 % (43.0-81.0); PLATELET COUNT (AUTO) 141 K/uL (150-450); RED BLOOD CELL COUNT(AUTO) 4.18 MIL/uL (4.0-5.2); RED CELL DISTRIBUTION WIDTH 16.9 % (11.5-15.0); WHITE BLOOD COUNT (AUTO) 4.7 K/uL (4.3-11.0)
[2024-04-22] MEDS: clonazePAM 1 MG TABLET PO PRN (15:47)
[2024-04-22 16:00] VITALS: BP 94/58; TEMP 97.6; O2SAT 99
[2024-04-22] MEDS: CEFTRIAXONE 1 G in IV D5W 50 ML IV SCH (21:13)
[2024-04-23 07:00] VITALS: BP 101/63; TEMP 97.5; O2SAT 97
[2024-04-23] MEDS: PANTOPRAZOLE 40 MG TABLET.DR PO SCH (07:29)
[2024-04-23 16:00] VITALS: BP 98/63; TEMP 98.4; O2SAT 98
[2024-04-23] MEDS: MAG HYDROX/AL HYDROX/SIMETH 30 ML UDC PO PRN (17:58)
== END 2024-04-23 18:18 | DRG 640 ==
LOC: ER 16:55 → MED 20:11
PROVIDERS: ATTEND Internal Medicine
DX: E86.0 Dehydration (principal); E43 Unspecified severe protein-calorie malnutrition; N39.0 Urinary tract infection, site not specified; I50.32 Chronic diastolic (congestive) heart failure; J96.10 Chronic respiratory failure, unspecified whether with hypoxia or hypercapnia; I11.0 Hypertensive heart disease with heart failure; Z85.42 Personal history of malignant neoplasm of other parts of uterus; E11.9 Type 2 diabetes mellitus without complications; Z79.01 Long term (current) use of anticoagulants; Z79.82 Long term (current) use of aspirin; Z79.84 Long term (current) use of oral hypoglycemic drugs; Z79.51 Long term (current) use of inhaled steroids; Z79.899 Other long term (current) drug therapy; J44.9 Chronic obstructive pulmonary disease, unspecified; M19.90 Unspecified osteoarthritis, unspecified site; F41.9 Anxiety disorder, unspecified; F32.A Depression, unspecified; E78.5 Hyperlipidemia, unspecified; B96.89 Other specified bacterial agents as the cause of diseases classified elsewhere; R79.89 Other specified abnormal findings of blood chemistry; Z68.34 Body mass index [BMI] 34.0-34.9, adult; E66.9 Obesity, unspecified; M62.3 Immobility syndrome (paraplegic); E88.09 Other disorders of plasma-protein metabolism, not elsewhere classified; Z79.4 Long term (current) use of insulin; Z99.81 Dependence on supplemental oxygen; F17.210 Nicotine dependence, cigarettes, uncomplicated; F12.10 Cannabis abuse, uncomplicated
CPT/HCPCS: 36415; 71045-TC; 72131-TC; 80048-TC; 80061-TC; 80076-TC; 81001; 82607-TC; 82962-TC; 83735-TC; 83921; 84100-TC; 84443-TC; 85025-TC; 87086-TC; 97112-TC; 97530-TC; A4223; G0378; G0480; J0696; J1650; J1815; J7050; J7060

== ENCOUNTER 2024-06-29 23:45 | Inpatient (IN) | payer MEDICARE, OTHER ==
[~2024-06-29] VITALS: Ht 170.2 cm; Wt 95.3 kg
[~2024-06-29 23:45] MED LIST changes: +ACET-868 PO; -ALBU18HF2 IH; +ARGI1POW13 PO; +ASCO-352 PO; -ASPI-1420 PO; -BENZ2AMP3 PO; -CEPH500C2 PO; +CLON2TAB11 PO; +CYCL10TA9 PO; +DOCU100T2 PO; -DOCU250C14 PO; -ENOX40DI SQ; -FLUO20CA42 PO; -Folic Acid PO; -GABA-534 PO; +GABA300C PO; +HYDR25TA4 PO; +IBUP-1490 PO; +IPRA3AMP22 IH; +LOSA100T31 PO; -METF-442 PO; -METH4TAB3 PO; +MIRT-121 PO; +MONT10TA22 PO; +MULT-213 PO; +NICO-762 TD; -QUET300T2 PO; -ROSU5TAB PO; +SENN8.6T19 PO; +TRAZ-257 PO
[2024-06-30 01:54] LABS: BASOPHILS % (AUTO) 0.6 % (0.0-2.0); EOSINOPHILS # (AUTO) 0.1 K/uL (0.0-0.7); EOSINOPHILS % (AUTO) 1.9 % (0.0-6.0); HEMATOCRIT 32 % (33-45); HEMOGLOBIN 10.5 g/dL (11.5-14.8); LYMPHOCYTES # (AUTO) 2.3 K/uL (0.8-4.8); LYMPHOCYTES % (AUTO) 42.2 % (20.0-44.0); MEAN CORPUSCULAR HEMOGLOBIN 22 PG (26.0-33.0); MEAN CORPUSCULAR HGB CONC 33 g/dl (31.0-36.0); MEAN CORPUSCULAR VOLUME 67 fL (82-100); MONOCYTES # (AUTO) 0.6 K/uL (0.1-1.30); MONOCYTES % (AUTO) 11.2 % (2.0-12.0); NEUTROPHILS # (AUTO) 2.4 K/uL (1.8-8.9); NEUTROPHILS % (AUTO) 44.1 % (43.0-81.0); PLATELET COUNT (AUTO) 142 K/uL (150-450); RED BLOOD CELL COUNT(AUTO) 4.83 MIL/uL (4.0-5.2); WHITE BLOOD COUNT (AUTO) 5.5 K/uL (4.3-11.0)
[2024-06-30 02:10] LABS: CALCIUM, SERUM 8.7 mg/dL (8.5-10.1); CREATININE 0.9 mg/dL (0.6-1.3); POTASSIUM 3.5 mmol/L (3.5-5.1)
[2024-06-30 02:16] LABS: LACTIC ACID 1.8 mmol/L (0.4-2.0)
[2024-06-30 02:21] LABS: APPEARANCE,URINE CLOUDY (CLEAR); BILIRUBIN,URINE NEGATIVE (NEGATIVE); BLOOD, URINE NEGATIVE Ery/uL (NEGATIVE); COLOR,URINE DARK YELLOW (YELLOW); KETONES,URINE NEGATIVE (NEGATIVE); LEUKOCYTE ESTERASE ,URINE 1+ (NEGATIVE); NITRITE, URINE POSITIVE (NEGATIVE); PROTEIN,URINE NEGATIVE (NEGATIVE); UGLUCOSE NEGATIVE (NEGATIVE)
[2024-06-30 02:22] LABS: ALBUMIN 3.1 g/dL (3.4-5.0); BILIRUBIN,TOTAL 0.4 mg/dL (0.2-1.0); TOTAL PROTEIN, SERUM 6.4 g/dL (6.4-8.2)
[2024-06-30 02:22] LABS: ADD URINE CULTURE YES; BACTERIA,URINE Moderate /HPF (None Seen); SQUAMOUS EPITHELIAL CELL,UR Few /HPF (None Seen)
[2024-06-30] MEDS ORDERED: MAG HYDROX/AL HYDROX/SIMETH 30 ML UDC PO PRN (05:00)
[2024-06-30] MEDS ORDERED: ONDANSETRON HCL/PF 4 MG/2 ML VIAL IVP PRN (05:00)
[2024-06-30] MEDS: CEFTRIAXONE 1 G in IV D5W 50 ML IV ONE (05:00)
[2024-06-30] MEDS ORDERED: MAGNESIUM HYDROXIDE 30 ML UDC PO PRN (05:00)
[2024-06-30] MEDS ORDERED: Z GUARD REMEDY 4 OZ OINT TP PRN (05:00)
[2024-06-30] MEDS: FUROSEMIDE 40 MG/4 ML VIAL IV ONE (05:30)
[2024-06-30] MEDS ORDERED: IBUPROFEN 600 MG TABLET PO PRN (05:30)
[2024-06-30] MEDS ORDERED: Medication Not On Formulary EA (Ipratropium/Albuterol Sulfate (Ipratr-Albuterol 0.5-3 Mg IH PRN (05:30)
[2024-06-30] MEDS ORDERED: SENNOSIDES 8.6 MG TABLET PO PRN (05:30)
[2024-06-30] MEDS ORDERED: HYDROCODONE/APAP 10/325MG TABLET ONE (05:46)
[2024-06-30] MEDS: HYDROCODONE/APAP 10/325MG TABLET PO ONE (05:46)
[2024-06-30] MEDS ORDERED: ALBUTEROL FS 2.5 MG/0.5 ML VIAL.NEB NEB PRN (07:00)
[2024-06-30] MEDS ORDERED: IPRATROPIUM NEB FS 0.5 MG/2.5 ML AMPUL.NEB IH PRN (07:00)
[2024-06-30] MEDS ORDERED: CEFTRIAXONE 1GM BAG (ER ONLY) 50 ML IV ONE (07:46)
[2024-06-30] MEDS ORDERED: FUROSEMIDE 40 MG/4 ML VIAL ONE (07:47)
[2024-06-30] MEDS: PANTOPRAZOLE 40 MG VIAL IV SCH (08:48)
[2024-06-30] MEDS: clonazePAM 1 MG TABLET PO SCH (08:49)
[2024-06-30] MEDS: ASCORBIC ACID 500 MG TABLET PO SCH (08:49)
[2024-06-30] MEDS: ACETAMINOPHEN 325 MG TABLET PO PRN (08:49)
[2024-06-30] MEDS: DOCUSATE SODIUM 100 MG CAPSULE PO SCH (08:49)
[2024-06-30] MEDS: HYDROCHLOROTHIAZIDE 25 MG TABLET PO SCH (08:49)
[2024-06-30] MEDS: MULTIVIT W/MINERALS 1 TAB TABLET PO SCH (08:49)
[2024-06-30] MEDS: ARGININE/GLUTAMINE/CALCIUM BMB 1 EACH POWD.PACK PO SCH (08:50)
[2024-06-30] MEDS: LOSARTAN POTASSIUM 50 MG TABLET PO SCH (08:50)
[2024-06-30 09:00] VITALS: BP 119/84; TEMP 98.8; O2SAT 99
[2024-06-30] MEDS: CYCLOBENZAPRINE 10 MG TABLET PO PRN (09:46)
[2024-06-30] MEDS: NICOTINE PATCH (21MG) 21 MG PATCH.TD24 TD PRN (09:47)
[2024-06-30 13:00] VITALS: BP 103/63; TEMP 97.5; O2SAT 98
[2024-06-30] MEDS: KETOROLAC TROMETHAMINE 15 MG/ML VIAL IV PRN (15:50)
[2024-06-30 17:00] VITALS: BP 110/65; TEMP 98.7; O2SAT 97
[2024-06-30] MEDS: MONTELUKAST SODIUM (10MG) 10 MG TABLET PO SCH (17:08)
[2024-06-30 21:00] VITALS: BP 138/70; TEMP 98.4; O2SAT 95
[2024-06-30] MEDS: MIRTAZAPINE 15 MG TABLET PO SCH (22:41)
[2024-06-30] MEDS: GABAPENTIN 300 MG CAPSULE PO SCH (22:42)
[2024-06-30] MEDS: TRAZODONE 50 MG TABLET PO SCH (22:42)
[2024-07-01] VITALS (8 sets, daily range): BP systolic 122–130; BP diastolic 64–81; TEMP 97.7–98.5; O2SAT 94–97
[2024-07-01] MEDS: HYDROCODONE/APAP 10/325MG TABLET PO ONE (02:19)
[2024-07-01] MEDS: PANTOPRAZOLE 40 MG TABLET.DR PO SCH (07:30)
[2024-07-01] MEDS: CEFTRIAXONE 1 G in IV D5W 50 ML IV SCH (09:05)
[2024-07-01 15:16] LABS: BASOPHILS % (AUTO) 0.6 % (0.0-2.0); EOSINOPHILS # (AUTO) 0.1 K/uL (0.0-0.7); EOSINOPHILS % (AUTO) 2.6 % (0.0-6.0); HEMATOCRIT 30 % (33-45); HEMOGLOBIN 9.5 g/dL (11.5-14.8); LYMPHOCYTES # (AUTO) 1.9 K/uL (0.8-4.8); LYMPHOCYTES % (AUTO) 43.7 % (20.0-44.0); MEAN CORPUSCULAR HEMOGLOBIN 21 PG (26.0-33.0); MEAN CORPUSCULAR HGB CONC 32 g/dl (31.0-36.0); MEAN CORPUSCULAR VOLUME 66 fL (82-100); MONOCYTES # (AUTO) 0.6 K/uL (0.1-1.30); NEUTROPHILS # (AUTO) 1.7 K/uL (1.8-8.9); NEUTROPHILS % (AUTO) 39.1 % (43.0-81.0); PLATELET COUNT (AUTO) 149 K/uL (150-450); RED BLOOD CELL COUNT(AUTO) 4.57 MIL/uL (4.0-5.2); RED CELL DISTRIBUTION WIDTH 15.6 % (11.5-15.0); WHITE BLOOD COUNT (AUTO) 4.2 K/uL (4.3-11.0)
[2024-07-01 15:29] LABS: CALCIUM, SERUM 8.2 mg/dL (8.5-10.1); MAGNESIUM 1.9 mg/dL (1.8-2.4); PHOSPHORUS 4.3 mg/dL (2.5-4.9); POTASSIUM 4.1 mmol/L (3.5-5.1)
[2024-07-02 04:00] VITALS: BP 139/79; TEMP 98.5; O2SAT 98
[2024-07-02 07:05] LABS: CALCIUM, SERUM 8.4 mg/dL (8.5-10.1); POTASSIUM 4.7 mmol/L (3.5-5.1)
[2024-07-02 07:09] LABS: PHOSPHORUS 4.7 mg/dL (2.5-4.9)
[2024-07-02 09:15] VITALS: BP 137/73
[2024-07-02 12:02] LABS: BASOPHILS % (AUTO) 0.6 % (0.0-2.0); EOSINOPHILS # (AUTO) 0.1 K/uL (0.0-0.7); EOSINOPHILS % (AUTO) 1.6 % (0.0-6.0); HEMATOCRIT 33 % (33-45); HEMOGLOBIN 10.1 g/dL (11.5-14.8); LYMPHOCYTES # (AUTO) 1.5 K/uL (0.8-4.8); LYMPHOCYTES % (AUTO) 25.5 % (20.0-44.0); MEAN CORPUSCULAR HEMOGLOBIN 21 PG (26.0-33.0); MEAN CORPUSCULAR HGB CONC 31 g/dl (31.0-36.0); MEAN CORPUSCULAR VOLUME 67 fL (82-100); MONOCYTES # (AUTO) 0.6 K/uL (0.1-1.30); MONOCYTES % (AUTO) 10.6 % (2.0-12.0); NEUTROPHILS # (AUTO) 3.6 K/uL (1.8-8.9); NEUTROPHILS % (AUTO) 61.7 % (43.0-81.0); RED CELL DISTRIBUTION WIDTH 15.8 % (11.5-15.0); WHITE BLOOD COUNT (AUTO) 5.8 K/uL (4.3-11.0)
[2024-07-02 12:42] LABS: BASOPHILS % (MANUAL) 0 % (0.0-2.0); EOSINOPHILS % (MANUAL) 2 % (0-4); LYMPHOCYTES % (MANUAL) 33 % (16-48); MONOCYTES % (MANUAL) 10 % (0-11.0); NEUTROPHILS % (MANUAL) 55 (42-76); PLATELET COUNT (AUTO) 147 K/uL (150-450); PLATELET ESTIMATE DECREASED
[2024-07-02 12:43] LABS: ANISOCYTOSIS 1+; OVALOCYTES 1+
== END 2024-07-02 15:00 | DRG 206 ==
LOC: ER 23:52 → TELE1 06-30 06:16 → MEDSG1 07-01 08:53
PROVIDERS: ADMIT Student in an Organized Health Care Education/Training Program; ATTEND Student in an Organized Health Care Education/Training Program
DX: M94.0 Chondrocostal junction syndrome [Tietze] (principal); N39.0 Urinary tract infection, site not specified; I50.32 Chronic diastolic (congestive) heart failure; J96.10 Chronic respiratory failure, unspecified whether with hypoxia or hypercapnia; E44.1 Mild protein-calorie malnutrition; I11.0 Hypertensive heart disease with heart failure; E11.9 Type 2 diabetes mellitus without complications; Z85.42 Personal history of malignant neoplasm of other parts of uterus; Z79.51 Long term (current) use of inhaled steroids; Z79.899 Other long term (current) drug therapy; Z79.84 Long term (current) use of oral hypoglycemic drugs; Z79.82 Long term (current) use of aspirin; E78.5 Hyperlipidemia, unspecified; J44.9 Chronic obstructive pulmonary disease, unspecified; M19.90 Unspecified osteoarthritis, unspecified site; F41.9 Anxiety disorder, unspecified; F32.A Depression, unspecified; F17.200 Nicotine dependence, unspecified, uncomplicated; B96.89 Other specified bacterial agents as the cause of diseases classified elsewhere; D69.6 Thrombocytopenia, unspecified; Z99.81 Dependence on supplemental oxygen; Z68.33 Body mass index [BMI] 33.0-33.9, adult; E66.9 Obesity, unspecified; M62.3 Immobility syndrome (paraplegic); F19.11 Other psychoactive substance abuse, in remission; G89.29 Other chronic pain
CPT/HCPCS: 36415; 71045-TC; 80048-TC; 80053-TC; 81001; 83605-TC; 83735-TC; 83880; 84100-TC; 84484-TC; 85025-TC; 87040-TC; 87081-TC; 92526; 92611-TC; 93307-TC; 97110-TC; 97530-TC; 97535-TC; A4223; G0378; J0696; J1885; J1940; J2470; J7050; J7060